=== PATIENT | female | born 1955 | race African-American/Black ===

== ENCOUNTER 2017-03-06 23:01 | Inpatient (IN) ==
[2017-03-06] MEDS ORDERED: ALBUTEROL 2.5 MG/3 ML NEB RESP TX SCH (23:45)
[2017-03-06] MEDS ORDERED: methylPREDNISolone SOD SUC 125 MG/2 ML VIAL IV STA (23:54)
[2017-03-06] MEDS ORDERED: FUROSEMIDE 100 MG/10 ML VIAL IV STA (23:54)
[2017-03-06] MEDS ORDERED: ONDANSETRON 4 MG/2 ML VIAL IV STA (23:54)
[2017-03-06] MEDS ORDERED: NITROGLYCERIN 2% OINT 1 INCH/GM PACK TOP STA (23:54)
[2017-03-06] MEDS ORDERED: ASPIRIN 325 MG TABLET PO STA (23:54)
[2017-03-07] MEDS ORDERED: NITROGLYCERIN 2% OINT 1 INCH/GM PACK TOP ONE ×3 (00:04→12:20)
[2017-03-07] MEDS ORDERED: ASPIRIN 325 MG TABLET ONE (00:04)
[2017-03-07] MEDS ORDERED: FUROSEMIDE 20 MG/2 ML VIAL ONE (00:04)
[2017-03-07] MEDS ORDERED: ONDANSETRON 4 MG/2 ML VIAL ONE (00:04)
[2017-03-07] MEDS ORDERED: methylPREDNISolone SOD SUC 125 MG/2 ML VIAL ONE (00:04)
[2017-03-07] MEDS ORDERED: FUROSEMIDE 40 MG/4 ML VIAL ONE ×2 (00:04→08:59)
--- NOTE | 2017-03-07 00:08 | EKG Report ---
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
[2017-03-07 00:35] LABS: Basophils % 0.3 % (0.0-0.8); Eosinophils % 0.1 % (0.00-10.9); Hematocrit 46.4 VOL% (35.7-47.0); Hemoglobin 14.4 GM/DL (12.0-16.0); Immature Granulocytes % 0.5 %; Immature Granulocytes Absolute 0.06 #; Lymphocytes # 1.9 10*3/uL (1.4-4.0); Lymphocytes % 16.3 % (21.3-54.2); Mean Corpuscular Hemoglobin 30 PG (27-34); Mean Corpuscular Volume 95.9 FL (87-102); Mean Platelet Volume 9.9 FL (9.6-12.0); Monocytes % 8.9 % (1.7-12.7); NRBC # 0.11 10*3/uL; Neutrophils # 8.5 10*3/uL (1.4-7.4); Neutrophils % 73.9 % (38.7-73.9); Platelet Count 281 T/CUMM (130-400); Red Blood Count 4.84 MC/CUMM (3.8-5.5); Red Cell Distribution Width 19.4 % (9.3-17.3); White Blood Count 11.5 T/CUMM (4-12)
[2017-03-07 00:36] LABS: Apearance,Urine CLEAR (Clear); Bacteria,Urine Occasional /HPF (Few); Bilirubin,Urine Negative (Negative); Blood, Urine Negative (Negative); Glucose,Urine (UA) Negative (Negative); Ketones,Urine Negative (Negative); Nitrite,Urine Negative (Negative); Protein,Urine Negative; RBC,Urine <1 /HPF (0-4); Squamous Epithelial Cell,Urine Occasional /HPF (0-10); Urine Color Straw (Yellow); Urine Specific Gravity 1.004 (1.001-1.035); Urine Urobilinogen < 2.0 EU/DL (0.2-1.0); WBC,Urine <1 /HPF (0-6)
[2017-03-07 00:41] LABS: Allen Test Positive; Pt O2 Delivery Device Venturi Mask
[2017-03-07 00:42] LABS: ABG Base Excess 7.7 MMOL/L (-2.5-2.5); ABG HCO3 32.6 MMOL/L (20-26); ABG Oxygen Saturation 82.6 % (95-100); ABG PCO2 46.2 MM HG (35-48); ABG PH 7.467 (7.35-7.45); ABG TCO2 34.1 MMOL/L (23-27)
--- NOTE | 2017-03-07 00:43 | Emergency Department Note ---
Keith Guillen Manpreet, am scribing for, and in the presence of, Juan Alberto Wilson MD 23:59. Katie Guillen Charles R, MD, personally performed the services described in this documentation, ascribed by Boubacar Parker in my presence, and it is both accurate and complete . Arrival - Arrival Chief Complaint: Shortness of Breath ED Nursing Triage Note: transferred from [facility] with dx of chf exac and sob x 1 day. ems states patient is on home o2 at 5liters at all times, patient states she is a current everyday smoker. Mode of Arrival: Stretcher Limitations: No Limitations Source: Patient - History of Present Illness HPI Narrative: Pt is a 61 y/o female, with PMHx of CHF, HTN, CAD, NIDDM, COPD, and bronchitis, who was transferred from [facility] with a Dx of CHF and SOB since 1 day. Pt states he is on home O2 all the time while she is at home. Pt admits to smoking 1-2 cigarettes every day. Pt currently denies CP and states she does not walk around. Pt is UTD and complaint with her Rx medications. No other pains /complaints reported to ED. Onset (ago): hour(s) Consistency: constant Severity: moderate Severity scale (1-10): 4 Allergies/Adverse Reactions: Allergies Allergy/AdvReac Type Severity Reaction Status Date / Time No Known Allergies Allergy Verified 01/16/15 17:54 Home Medications: Home Medications Medication Instructions Recorded Confirmed Type Escitalopram [Lexapro] 20 mg PO DAILY 11/08/15 07/07/16 History Albuterol Sulfate [Ventolin HFA] 2 puff INH Q4H PRN #1 inhaler 07/13/16 Rx Albuterol/Ipratropium Neb [Duoneb] 3 ml RESP TX RT Q6H #120 ml 07/13/16 Rx Aspirin Chew Tab 81 mg PO DAILY #0 tablet 07/13/16 Rx Furosemide Tab [Lasix Tab] 40 mg PO BID DIURETIC #60 tablet 07/13/16 Rx Hydrocodone/Acetaminophen 1 each PO Q6HR #30 tablet 07/13/16 Rx [Hydrocodon-Acetaminophn 10-325] Insulin Glargine [Lantus] 20 unit SUBCUT BEDTIME #100 ml 07/13/16 Rx LORazepam [Lorazepam] 0.5 mg PO BID #60 07/13/16 07/07/16 Rx Levofloxacin Tab [Levaquin Tab] 500 mg PO DAILY #10 tablet 07/13/16 Rx Metoprolol Tartrate 50 mg PO BID #60 tablet 07/13/16 Rx Pantoprazole Tab [Protonix Tab] 40 mg PO DAILY #30 tablet 07/13/16 Rx Theophylline ER Tab 300 mg PO BID W/MEALS #60 tablet 07/13/16 Rx Tiotropium Inhalation [Spiriva 18 mcg INH DAILY #1 box 07/13/16 Rx Handihaler] predniSONE TAB [PredniSONE] 10 mg PO BID #50 tablet 07/13/16 Rx Review of System - Review of System 12 point system: reviewed and no additional remarkable complaints except as stated - Review of System Constitutional: Absent: chills, fever Respiratory: Present: respiratory distress, wheezing. Absent: cough Cardiovascular: Present: dyspnea on exertion. Absent: chest pain Gastrointestinal: Absent: abdominal pain, nausea, vomiting Neurological: Absent: headache, weakness Medical,Surgical,& Family Hx - Medical History Cardio: History of: CHF (unclear diagnosis), CAD, Hypertension Endocrine: History of: Diabetes Mellitus (NIDDM), Dyslipidemia No history of: Thyroid Disorder Respiratory: History of: Bronchitis, COPD, Obstructive Sleep Apnea - Surgical History Cardiac Surgeries: Sugical HX of: Cardiac Catheterization (stent times 2) Abdominal Surgeries: Patient denies: Abdominal Surgery - Social History Smoking Status: Current every day smoker Frequency of Alcohol Use: None Type of Drug Use: None Exam Vital Signs: Vital Signs Temperature 97.4 F L 03/06/17 23:11 Pulse Rate 105 H 03/06/17 23:11 Respiratory Rate 18 03/06/17 23:11 Blood Pressure 129/88 03/06/17 23:11 O2 Sat by Pulse Oximetry 89 L 03/06/17 23:11 - General General appearance: alert, in distress - Head Head exam: Present: atraumatic, normocephalic, normal inspection - Eye Eye exam: Present: normal appearance, EOMI - ENT ENT exam: Present: normal exam, normal oropharynx, mucous membranes moist, TM's normal bilaterally - Neck Neck exam: Present: trachea midline, other (JVD). Absent: normal inspection, tenderness - Chest Chest inspection: Present: normal inspection, symmetric chest wall rise. Absent : tenderness - Respiratory Respiratory exam: Present: accessory muscle use, rales, wheezes. Absent: normal lung sounds bilaterally - Cardiovascular Cardiovascular exam: Present: normal rhythm, tachycardia, normal heart sounds. Absent: regular rate - Abdominal Exam Abdominal exam: Present: soft, normal bowel sounds. Absent: distention, tenderness, guarding - Extremities Exam Extremities exam: Present: other (+3 Bilateral Edema). Absent: normal inspection - Back Exam Back exam: Present: normal inspection, full ROM. Absent: tenderness - Neurological Exam Neurological exam: Present: alert, oriented X3, CN II-XII intact - Psychiatric Psychiatric exam: Present: normal affect, normal mood - Skin Skin exam: Present: warm, dry, intact, normal color. Absent: pallor Course - Consultations Consultation #1: Hospitalist will admit patient Time: 00:59 Results - Labs CBC & BMP: 03/06/17 00:19 Lab Results: I have reviewed the patients labs Labs: Laboratory Tests 03/06/17 00:01 Urine pH 6.0 Ur Specific [place] 1.004 Urine Urobilinogen < 2.0 H Urine RBC <1 Urine WBC <1 Laboratory Tests 03/06/17 03/06/17 00:19 00:30 WBC 11.5 RBC 4.84 Hgb 14.4 Hct 46.4 MCHC 31.0 L RDW 19.4 H Lymph % (Auto) 16.3 L Neut # (Auto) 8.5 H Piatt # (Auto) 1.0 H ABG pH 7.467 H ABG pO2 47.0 L ABG HCO3 32.6 H ABG Total CO2 34.1 H ABG O2 Saturation 82.6 L ABG Base Excess 7.7 H Critical Care Time Critical Care Time: Yes Total Critical Care Time: 60 Disposition Clinical Impression: Congestive heart failure, Hypertension, Acute and chronic respiratory failure ( [id number]), Obstructive sleep apnea syndrome, COPD (chronic obstructive pulmonary disease), Elevated troponin, Coronary artery disease, Hypomagnesemia, Theophylline toxicity, Acute dyspnea, Hypoxia Case discussed with: patient Disposition: Still a Patient Condition: Guarded Time of Disposition: 01:02
[2017-03-07 00:49] LABS: INR 1.1
[2017-03-07 00:59] LABS: Albumin 3.2 G/DL (3.4-5.0); Bilirubin,Total 0.9 MG/DL (0.2-1.0); Calcium 8.9 MG/DL (8.5-10.1); Total Protein 6.5 G/DL (6.4-8.3)
[2017-03-07 01:00] LABS: Magnesium 1.6 MG/DL (1.8-2.4)
[2017-03-07 01:01] LABS: Troponin I Only 0.516 NG/ML (0.00-0.045)
[2017-03-07] MEDS ORDERED: MAGNESIUM SULF RIDER 2 GM in PREMIX 1 EACH IV STA (01:01)
[2017-03-07] MEDS ORDERED: MAGNESIUM SULF RIDER 50 ML IV ONE (01:08)
[2017-03-07 01:36] LABS: Barbiturates Screen,Urine Negative (Negative); Benzodiazepines Screen,Urine Negative (Negative); Cannabinoid Screen,Urine Negative (Negative); Opiate Screen,Urine Positive (Negative); Phencyclidine Screen,Urine Negative (Negative)
--- NOTE | 2017-03-07 01:59 | Hospitalist History & Physical ---
Assessment and Plan (1) Acute and chronic respiratory failure ([id number]) Status: Acute Current Visit: Yes (2) Diabetes mellitus Status: Chronic Assessment and plan: Our plan for this patient will be admission to ICU. She will need to be diuresed. I would like to repeat coronary hack enzymes and have cardiology evaluate her. Continue with schedule breathing treatments. Will need to switch to Xopenex secondary to tachycardia. Symptomatically she is currently feeling better but her sats are too low for floor admission. Current Visit: No (3) Obstructive sleep apnea syndrome Status: Acute Current Visit: Yes (4) COPD (chronic obstructive pulmonary disease) Status: Chronic Current Visit: Yes (5) Congestive heart failure Status: Acute Current Visit: Yes (6) Elevated troponin Status: Acute Current Visit: Yes (7) Theophylline toxicity Status: Acute Current Visit: Yes (8) Acute dyspnea Status: Acute Current Visit: Yes (9) Hypoxia Status: Acute Current Visit: Yes History of Present Illness Chief complaint: Shortness of breath lower extremity swelling History of present illness: Ms. Cardoso is a 61 year old female with past medical history significant for morbid obesity coronary artery disease and COPD who was in her normal state of poor health till the last week. Patient said that she noted that her lower extremities have been swelling been getting more short of breath and she went to Dr. Edwards's office. He made some medication adjustments and then she went home. Since him when she got any better so she went to [facility]. Patient's O2 sats were decreased patient appeared to be in heart failure and had a mild bump in troponins she was transferred to our hospital for further evaluation. Patient was diuresed feeling much better but O2 sats are still little bit on the lower side. I was consulted to admit her to the ICU through the emergency room Home Medications Medication Instructions Recorded Confirmed Type Escitalopram [Lexapro] 20 mg PO DAILY 11/08/15 03/07/17 History Albuterol Sulfate [Ventolin HFA] 2 puff INH Q4H PRN #1 inhaler 07/13/16 Rx Metoprolol Tartrate 50 mg PO BID #60 tablet 07/13/16 03/07/17 Rx Pantoprazole Tab [Protonix Tab] 40 mg PO DAILY #30 tablet 07/13/16 03/07/17 Rx Theophylline ER Tab 300 mg PO BID W/MEALS #60 tablet 07/13/16 03/07/17 Rx Aspirin [Ecotrin] 325 mg PO DAILY 03/07/17 03/07/17 History Furosemide Tab [Lasix Tab] 40 mg PO DAILY 03/07/17 03/07/17 History Insulin Lispro [HumaLOG] See Protocol SUBCUT ACHS PRN 03/07/17 03/07/17 History LORazepam [Lorazepam] 0.5 mg PO BID PRN 03/07/17 03/07/17 History predniSONE TAB [PredniSONE] 10 mg PO DAILY 03/07/17 03/07/17 History Allergies Allergy/AdvReac Type Severity Reaction Status Date / Time No Known Allergies Allergy Verified 01/16/15 17:54 Medical,Surgical,& Family Hx - Medical History Cardio: History of: CHF (unclear diagnosis), CAD, Hypertension Endocrine: History of: Diabetes Mellitus (NIDDM), Dyslipidemia No history of: Thyroid Disorder Respiratory: History of: Bronchitis, COPD, Obstructive Sleep Apnea - Surgical History Cardiac Surgeries: Sugical HX of: Cardiac Catheterization (stent times 2) Abdominal Surgeries: Patient denies: Abdominal Surgery - Social History Smoking Status: Current every day smoker Frequency of Alcohol Use: None Type of Drug Use: None 12 point system: reviewed and no additional remarkable complaints except as stated Exam - Constitutional Vitals: Period Temp Pulse Resp BP Sys/Alvarez Pulse Ox Last 24 Hr 97.4 F-97.4 F 103-112 11-22 129-129/88-88 89-92 - General General appearance: alert, in distress - Head Head exam: Present: atraumatic, normocephalic, normal inspection - Eye Eye exam: Present: normal appearance, EOMI - ENT ENT exam: Present: normal exam, normal oropharynx, mucous membranes moist, TM's normal bilaterally - Neck Neck exam: Present: trachea midline, other (JVD). Absent: normal inspection, tenderness - Chest Chest inspection: Present: normal inspection, symmetric chest wall rise. - Respiratory Respiratory exam: Present: accessory muscle use, rales, wheezes. - Cardiovascular Cardiovascular exam: Present: normal rhythm, tachycardia, normal heart sounds. - Abdominal Exam Abdominal exam: Present: soft, normal bowel sounds. - Extremities Exam Extremities exam: Present: other (+3 Bilateral Edema). - Back Exam Back exam: Present: normal inspection, full ROM. - Neurological Exam Neurological exam: Present: alert, oriented X3, CN II-XII intact - Psychiatric Psychiatric exam: Present: normal affect, normal mood - Skin Skin exam: Present: warm, dry, intact, normal color. Absent: pallor Results - Labs CBC & BMP: 03/06/17 00:19 03/06/17 00:19
[2017-03-07] MEDS ORDERED: ALBUTEROL 2.5 MG/3 ML NEB RESP TX PRN (02:04)
[2017-03-07] MEDS ORDERED: ONDANSETRON 4 MG/2 ML VIAL IV PRN (02:04)
[2017-03-07] MEDS ORDERED: ACETAMINOPHEN 325 MG TABLET PO PRN (02:04)
[2017-03-07] MEDS ORDERED: MAGNESIUM SULF RIDER 4 GM in PREMIX 1 EACH IV PRN ×2 (02:13→11:03)
[2017-03-07] MEDS ORDERED: MAGNESIUM SULF RIDER 2 GM in PREMIX 1 EACH IV PRN ×2 (02:13→11:03)
[2017-03-07] MEDS ORDERED: methylPREDNISolone SOD SUC 40 MG/1 ML VIAL ONE (03:43)
--- NOTE | 2017-03-07 05:21 | EKG Report ---
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
[2017-03-07] MEDS ORDERED: LEVALBUTEROL 0.63 MG/3 ML NEB RESP TX PRN (05:40)
[2017-03-07 05:57] LABS: CKMB % 7.8 %; Troponin I Only 0.563 NG/ML (0.00-0.045)
[2017-03-07] MEDS: NITROGLYCERIN 2% OINT 1 INCH/GM PACK TOP SCH ×3 (06:00→19:41)
[2017-03-07] MEDS: methylPREDNISolone SOD SUC 40 MG/1 ML VIAL IV SCH ×3 (06:00→22:07)
--- NOTE | 2017-03-07 06:40 | XRay Report ---
Referring Physician: Juan Alberto Wilson Exam: XR chest 1V portable Date: March 06, 2017 at 11:58 PM Reason: Shortness of breath Comparison: Chest one view portable March 06, 2017 at 8:12 PM Findings: The cardiac silhouette is again enlarged, and there is prominent calcified plaque at the aortic arch. The interstitial markings are diffusely prominent bilaterally, and there are scattered opacities within the mid and lower lung zones bilaterally. This is concerning for pulmonary edema and atelectasis, but superimposed pneumonia is not excluded. No pneumothorax is identified, but there is mild bilateral pleural fluid. No acute osseous process is seen. Impression: There has been no significant change. PROCEDURE INTERPRETED AT [facility] DEPARTMENT OF RADIOLOGY Final Report Signed by: Dr. Iraj Rodriguez
[2017-03-07] MEDS ORDERED: ALBUTEROL/IPRATROPIUM 3 ML NEB RESP TX SCH (07:00)
[2017-03-07] MEDS ORDERED: FUROSEMIDE 40 MG/4 ML VIAL IV SCH (08:00)
[2017-03-07] MEDS: LEVALBUTEROL 1.25 MG/3 ML NEB RESP TX SCH ×2 (08:07→12:05)
[2017-03-07] MEDS ORDERED: ENOXAPARIN 40 MG/0.4 ML SYRINGE ONE (08:59)
[2017-03-07] MEDS ORDERED: PANTOPRAZOLE 40 MG TABLET PO ONE (08:59)
[2017-03-07] MEDS ORDERED: METOPROLOL TARTRATE 50 MG TABLET ONE (08:59)
[2017-03-07] MEDS ORDERED: ASPIRIN EC 325 MG TABLET PO ONE (08:59)
[2017-03-07] MEDS ORDERED: ENOXAPARIN 40 MG/0.4 ML SYRINGE SUBCUT SCH (09:00)
--- NOTE | 2017-03-07 09:10 | EKG Report ---
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
[2017-03-07] MEDS: ASPIRIN EC 325 MG TABLET PO SCH (09:14)
[2017-03-07] MEDS: METOPROLOL TARTRATE 50 MG TABLET PO SCH ×2 (09:14→21:06)
[2017-03-07] MEDS: PANTOPRAZOLE 40 MG TABLET PO SCH (09:14)
[2017-03-07] MEDS ORDERED: LORazepam 1 MG TABLET ONE (09:28)
--- NOTE | 2017-03-07 09:32 | Cardiology Consult Note ---
Assessment and Plan - Time spent with patient Time spent with patient: Greater than 30 minutes (1) Obesity (BMI 30-39.9) Status: Chronic Assessment and plan: SEE PLAN OF CARE LISTED BELOW Current Visit: Yes (2) Acute and chronic respiratory failure ([id number]) Status: Acute Assessment and plan: SEE PLAN OF CARE LISTED BELOW Current Visit: Yes (3) Congestive heart failure Status: Acute Assessment and plan: SEE PLAN OF CARE LISTED BELOW Current Visit: Yes Qualifiers: Congestive heart failure type: diastolic Congestive heart failure chronicity: acute on chronic Qualified Code(s): I50.33 - Acute on chronic diastolic (congestive) heart failure (4) Elevated troponin Status: Chronic Assessment and plan: SEE PLAN OF CARE LISTED BELOW Current Visit: Yes (5) Hypoxia Status: Acute Assessment and plan: SEE PLAN OF CARE LISTED BELOW Current Visit: Yes (6) Obstructive sleep apnea syndrome Status: Chronic Assessment and plan: SEE PLAN OF CARE LISTED BELOW Current Visit: Yes (7) COPD (chronic obstructive pulmonary disease) Status: Chronic Current Visit: Yes (8) Hypertension Status: Chronic Assessment and plan: SEE PLAN OF CARE LISTED BELOW Current Visit: Yes (9) Left ventricular hypertrophy Status: Chronic Assessment and plan: SEE PLAN OF CARE LISTED BELOW Current Visit: No (10) Diabetes mellitus Status: Chronic Assessment and plan: SEE PLAN OF CARE LISTED BELOW Current Visit: No History of Present Illness - Data of Consult Patient: known to practice within the last 3 years Consult date: 03/07/17 Requesting Physician: Roberto Villeda - Consult Narrative Reason for consult: elevated troponin, SOB History of present illness: LEAD TECHNICAL ARCHITECT: DR. HOANG Patient is being seen in the ER. Ms. Cardoso, 61BF, previously followed by Dr. Hoang. She has never followed up with cardiology outpatient. Risk factors include hypertension, obesity, sedentary lifestyle. History of recurrent pneumonia, COPD. According to Dr. Hoang's notes, she has no prior history of known coronary artery disease. Patient states that she has had a heart catheterization at [facility] approximately 2 years ago and may have received a stent. There is no record of a cardiac catheterization at this institution. Echocardiogram June 2016 revealed: EF 65%, no significant valvular abnormality, moderate to severe concentric left ventricular hypertrophy. Patient presented to the emergency department of [facility] last evening in transfer from [facility]. Patient has previously been followed by Dr. Edwards for swelling and shortness of breath. He made adjustments in her medications but she did not improve. For this reason, she sought medical advice in the [facility] ER. Patient's oxygen saturations were decreased, chest x-ray reveals pulmonary edema and/or pneumonia, mild elevation of troponins. Patient denies chest pain, heaviness or tightness. She is orthopneic and edematous. Patient reports the shortness of breath has worsened over the past 4-6 weeks. She has been coughing up thick yellow sputum for approximately 2 weeks. She denies fevers or chills. Of note is 4 cm jugular vein distention to the jaw. EKG reveals a sinus tachycardia, heart rate 130s. She is significantly tachypneic with wheezes and rhonchi throughout. Patient is also tearful, grieving from the loss of her approximately 6 months ago. She has diuresed 2100 mL overnight with 60 mg of Lasix. I have reviewed patient's case with Dr. Parra. He reviewed her EKG and agrees this is a sinus tachycardia, no STEMI. She has chronically elevated troponins ranging from 1.25-0.146. Current troponins are 0.563 and 0.516. ProBNP 1090. At some point, patient may benefit from cardiac catheterization however she is in respiratory extremis at this time. We will continue to follow her cardiac biomarkers and EKG. Echocardiogram has been ordered. An additional dose of Lasix 40 mg IV has been given. Recommend starting antibiotics for possible pneumonia. Strict I&O and daily weights. Venous ultrasounds ordered and d- dimer. If patient could lie flat, CT chest PE protocol would be recommended to rule out PE however at this time she remains orthopneic. SPO2 saturation 94%, blood pressure 132/68, heart rate 128, respirations 16. ASSESSMENT/PLAN: 1. SHORTNESS OF BREATH - multifactorial including CHF, possible CAP, morbid obesity, COPD, anxiety and tachycardia. Will give additional diuretics, control her heart rate, continue aspirin and Lovenox. Supplemental oxygen. Will start Levaquin IV for possible pneumonia. Chest x-ray will be repeated in the morning. Aggressive pulmonary toilet. 2. ACUTE ON CHRONIC CHF - secondary to diastolic dysfunction (EF 65%), NYHA Class IV. Continue diuretics and afterload reduction. Strict I&O and daily weights. 3. POSSIBLE CAP - antibiotic coverage. Consider pulmonary consult. 4. HYPERTENSION - we will change her metoprolol to Bystolic and she is having active wheezing. 5. UNKNOWN LIPID STATUS - lipid profile in the morning 6. EDEMA - venous ultrasound bilateral lower extremity, d-dimer. 7. ELEVATED TROPONIN - continue to cycle accordingly. 8. HYPOMAGNESEMIA - replace per protocol 9. COPD - continue current plan of care 10. MORBID OBESITY - dietary counseling prior to discharge 11. VALERIE - bring sleep device. 12. COPD - continue aggressive pulmonary toilet. 13. DNR - continue current plan of care CC: - Home Medications and Allergies Home Medications: Home Medications Medication Instructions Recorded Confirmed Type Escitalopram [Lexapro] 20 mg PO DAILY 11/08/15 03/07/17 History Albuterol Sulfate [Ventolin HFA] 2 puff INH Q4H PRN #1 inhaler 07/13/16 Rx Metoprolol Tartrate 50 mg PO BID #60 tablet 07/13/16 03/07/17 Rx Pantoprazole Tab [Protonix Tab] 40 mg PO DAILY #30 tablet 07/13/16 03/07/17 Rx Theophylline ER Tab 300 mg PO BID W/MEALS #60 tablet 07/13/16 03/07/17 Rx Aspirin [Ecotrin] 325 mg PO DAILY 03/07/17 03/07/17 History Furosemide Tab [Lasix Tab] 40 mg PO DAILY 03/07/17 03/07/17 History Insulin Lispro [HumaLOG] See Protocol SUBCUT ACHS PRN 03/07/17 03/07/17 History LORazepam [Lorazepam] 0.5 mg PO BID PRN 03/07/17 03/07/17 History predniSONE TAB [PredniSONE] 10 mg PO DAILY 03/07/17 03/07/17 History Allergies/Adverse Reactions: Allergies Allergy/AdvReac Type Severity Reaction Status Date / Time No Known Allergies Allergy Verified 01/16/15 17:54 Review of systems: REVIEW OF SYSTEMS: See HPI - Constitutional Constitutional: Present: Fatigue. Absent: syncope, anorexia, night sweats - EENT Eyes: Absent: blurry vision, loss of vision, diplopia Ears: Absent: decreased hearing, ear pain, ear discharge - Cardiovascular Cardiovascular: Denies chest pain. Chronically dyspneic on exertion however worse over the past 4-6 weeks. Edema bilateral lower extremities 2-3 weeks. Denies palpitations. Absent: chest pain with deep breath, claudication - Respiratory Respiratory: Present: CORNELIUS, cough. Absent: wheezing, hemoptysis, change in phlegm color - Gastrointestinal Gastrointestinal: Denies: constipation. Absent: abdominal pain, hematemesis, hematochezia, melena, change in bowel habits, nausea - Genitourinary Genitourinary: Absent: difficulty urinating, dysuria, urinary hesitancy, flank pain - Musculoskeletal Musculoskeletal: Present: back pain Absent: joint swelling, muscle cramps, muscle weakness - Neurological Neurological: Present: poor gait without frequent falls. Absent: dizziness, hemiparesis - Psychiatric Psychiatric: Depression, anxiety. Absent: difficulty concentrating - Endocrine Endocrine: Present: fatigue. Absent: cold intolerance, heat intolerance, polyuria, polyphagia, polydipsia - Hematologic/Lymphatic Hematologic/Lymphatic: Present: easy bruising. Absent: easy bleeding -Integumentary Integumentary: Absent: lesions, rashes, skin breakdown Medical,Surgical,& Family Hx - Medical History Cardio: History of: CHF (unclear diagnosis), Hypertension No history of: Cardiac Dysrhythmia, [place], Valvular Heart Disease Neurology: No history of: Cerebrovascular Accident Endocrine: History of: Diabetes Mellitus (NIDDM), Dyslipidemia No history of: Thyroid Disorder Respiratory: History of: Bronchitis, COPD, Obstructive Sleep Apnea - Surgical History Cardiac Surgeries: Sugical HX of: Cardiac Catheterization (stent times 2) Abdominal Surgeries: Patient denies: Abdominal Surgery - Social History Smoking Status: Current every day smoker Frequency of Alcohol Use: None Type of Drug Use: None Marital Status: Lives With:: Alone Functional capacity: independent ambulation Physical Examination Vital Signs Temp Pulse Resp BP Pulse Ox 97.4 F L 105 H 18 129/88 89 L 03/06/17 23:11 03/06/17 23:11 03/06/17 23:11 03/06/17 23:11 03/06/17 23:11 General: [Appears well with no apparent distress.] [Pleasant and cooperative. ] [Appears comfortable.] HEENT: [PERRL, normocephalic, atraumatic. Mucous membranes moist. No jaundice noted. Conjunctiva moist and clear, sclerae anicteric] Neck: 4 cm JVD to jaw. No thyromegaly or lymphadenopathy noted. No carotid bruit appreciated Cardiac: [Tachycardia rate without obvious murmur, rub or gallop. Lungs: [End expiratory wheezes noted throughout, rhonchi noted throughout. Oxygen in use via facemask Abdomen: Soft, bowel sounds normoactive. Nontender and nondistended. No abdominal bruit or thrill noted. No masses noted. Musculoskeletal: No fluid collection. Decreased range of motion is noted. Extremities: No clubbing, cyanosis noted. [1+ bilateral lower extremity edema. ] Upper extremity pulses 2+. Lower extremity pulses 2+. Capillary refill less than 3 seconds. Skin: No unusual lesions or rashes. No skin breakdown appreciated. Neuro: Awake, alert and oriented 3. Moves all extremities well without hemiparesis or paralysis. No essential tremor is appreciated. Result/EKG - Labs CBC & BMP: 03/06/17 00:19 03/06/17 00:19 Lab Results: I have reviewed the past 24 hour labs Labs: Laboratory Results - last 24 hr 03/06/17 03/06/17 03/06/17 00:01 00:01 00:19 WBC 11.5 RBC 4.84 Hgb 14.4 Hct 46.4 MCV 95.9 MCH 30 MCHC 31.0 L RDW 19.4 H Plt Count 281 MPV 9.9 Neut % (Auto) 73.9 Lymph % (Auto) 16.3 L Dundy % (Auto) 8.9 Eos % (Auto) 0.1 Baso % (Auto) 0.3 Neut # (Auto) 8.5 H Lymph # (Auto) 1.9 Dundy # (Auto) 1.0 H Eos # (Auto) 0.0 Baso # (Auto) 0.0 Immature Gran % 0.5 Nucleated RBC % 1.0 Immature Gran # 0.06 Nucleated RBCs # 0.11 INR PT Patient/Control Mix ABG pH ABG pCO2 ABG pO2 ABG HCO3 ABG Total CO2 ABG O2 Saturation ABG Base Excess FiO2 Sodium Potassium Chloride Carbon Dioxide Anion Gap BUN Creatinine GFR Calculation BUN/Creatinine Ratio Glucose Calculated Osmolality Calcium Magnesium Total Bilirubin AST ALT Alkaline Phosphatase Total Creatine Kinase CK-MB (CK-2) CK and CKMB Interp Troponin I B-Natriuretic Peptide Total Protein Albumin Globulin Albumin/Globulin Ratio Urine Color Straw Urine Appearance Clear Urine pH 6.0 Ur Specific [place] 1.004 Urine Protein Negative Urine Glucose (UA) Negative Urine Ketones Negative Urine Blood Negative Urine Nitrate Negative Urine Bilirubin Negative Urine Urobilinogen < 2.0 H Urine Leukocytes Negative Urine RBC <1 Urine WBC <1 Ur Squamous Epith Cells Occasional Urine Bacteria Occasional Ur Culture Indicated? Not indicated Urine Opiates Screen Positive H Ur Barbiturates Screen Negative Ur Phencyclidine Scrn Negative U Amphetamine/Methamph Negative U Benzodiazepines Scrn Negative U Cocaine Metab Screen Negative Theophylline U Cannabinoids Screen Negative 03/06/17 03/06/17 03/06/17 00:19 00:19 00:19 WBC RBC Hgb Hct MCV MCH MCHC RDW Plt Count MPV Neut % (Auto) Lymph % (Auto) Dundy % (Auto) Eos % (Auto) Baso % (Auto) Neut # (Auto) Lymph # (Auto) Dundy # (Auto) Eos # (Auto) Baso # (Auto) Immature Gran % Nucleated RBC % Immature Gran # Nucleated RBCs # INR 1.1 PT Patient/Control Mix 12.0 ABG pH ABG pCO2 ABG pO2 ABG HCO3 ABG Total CO2 ABG O2 Saturation ABG Base Excess FiO2 Sodium 143 Potassium 4.0 Chloride 102 Carbon Dioxide 32 Anion Gap 13.0 BUN 33 H Creatinine 1.40 H GFR Calculation 58 BUN/Creatinine Ratio 23.00 H Glucose 84 Calculated Osmolality 290.0 Calcium 8.9 Magnesium 1.6 L Total Bilirubin 0.90 AST 34 ALT 35 Alkaline Phosphatase 123 H Total Creatine Kinase CK-MB (CK-2) CK and CKMB Interp Troponin I 0.516 H B-Natriuretic Peptide 1090 H Total Protein 6.5 Albumin 3.2 L Globulin 3.3 Albumin/Globulin Ratio 0.9 L Urine Color Urine Appearance Urine pH Ur Specific [place] Urine Protein Urine Glucose (UA) Urine Ketones Urine Blood Urine Nitrate Urine Bilirubin Urine Urobilinogen Urine Leukocytes Urine RBC Urine WBC Ur Squamous Epith Cells Urine Bacteria Ur Culture Indicated? Urine Opiates Screen Ur Barbiturates Screen Ur Phencyclidine Scrn U Amphetamine/Methamph U Benzodiazepines Scrn U Cocaine Metab Screen Theophylline U Cannabinoids Screen 03/06/17 03/06/17 03/07/17 00:30 Unknown 05:26 WBC RBC Hgb Hct MCV MCH MCHC RDW Plt Count MPV Neut % (Auto) Lymph % (Auto) Dundy % (Auto) Eos % (Auto) Baso % (Auto) Neut # (Auto) Lymph # (Auto) Dundy # (Auto) Eos # (Auto) Baso # (Auto) Immature Gran % Nucleated RBC % Immature Gran # Nucleated RBCs # INR PT Patient/Control Mix ABG pH 7.467 H ABG pCO2 46.2 ABG pO2 47.0 L ABG HCO3 32.6 H ABG Total CO2 34.1 H ABG O2 Saturation 82.6 L ABG Base Excess 7.7 H FiO2 40.00 Sodium Potassium Chloride Carbon Dioxide Anion Gap BUN Creatinine GFR Calculation BUN/Creatinine Ratio Glucose Calculated Osmolality Calcium Magnesium Total Bilirubin AST ALT Alkaline Phosphatase Total Creatine Kinase 65 CK-MB (CK-2) 5.1 H CK and CKMB Interp 7.8 Troponin I 0.563 H B-Natriuretic Peptide Total Protein Albumin Globulin Albumin/Globulin Ratio Urine Color Urine Appearance Urine pH Ur Specific [place] Urine Protein Urine Glucose (UA) Urine Ketones Urine Blood Urine Nitrate Urine Bilirubin Urine Urobilinogen Urine Leukocytes Urine RBC Urine WBC Ur Squamous Epith Cells Urine Bacteria Ur Culture Indicated? Urine Opiates Screen Ur Barbiturates Screen Ur Phencyclidine Scrn U Amphetamine/Methamph U Benzodiazepines Scrn U Cocaine Metab Screen Theophylline 23.1 H* U Cannabinoids Screen - Diagnostic Findings Procedure: Chest x-ray: report reviewed by me, Ultrasound: pending (Venous ultrasound BLE, echo) - EKG EKG results: interpreted by me EKG shows: tachycardia
[2017-03-07] MEDS: LORazepam 0.5 MG TABLET PO PRN (09:35)
[2017-03-07 10:44] LABS: Hematocrit 45.2 VOL% (35.7-47.0); Hemoglobin 13.9 GM/DL (12.0-16.0); Immature Granulocytes % 0.7 %; Immature Granulocytes Absolute 0.07 #; Lymphocytes # 0.5 10*3/uL (1.4-4.0); Lymphocytes % 4.6 % (21.3-54.2); Mean Corpuscular HGB Conc 30.8 GM/DL (32-36); Mean Corpuscular Hemoglobin 30 PG (27-34); Mean Corpuscular Volume 96.4 FL (87-102); Mean Platelet Volume 10.8 FL (9.6-12.0); Monocytes # 0.1 10*3/uL (0.11-0.8); Monocytes % 0.7 % (1.7-12.7); NRBC # 0.08 10*3/uL; Neutrophils # 9.7 10*3/uL (1.4-7.4); Platelet Count 312 T/CUMM (130-400); Red Blood Count 4.69 MC/CUMM (3.8-5.5); Red Cell Distribution Width 19.3 % (9.3-17.3); White Blood Count 10.3 T/CUMM (4-12)
--- NOTE | 2017-03-07 10:45 | Hospitalist Progress Note ---
<Paloma Rueda - Last Filed: 03/07/17 11:05> Assessment and Plan (1) Elevated troponin Status: Chronic Assessment and plan: Pt. has history of elevated troponins. Cardiology has been consulted to evaluate. Current Visit: Yes (2) Acute dyspnea Status: Acute Assessment and plan: Admitting to ICU. Supplemental O2 being provided. IV lasix for diuresis. Current Visit: Yes (3) Congestive heart failure Status: Acute Assessment and plan: Pt. is being diuresed. Acosta in place. Cardiology has been consulted. Current Visit: Yes Qualifiers: Congestive heart failure type: diastolic Congestive heart failure chronicity: acute on chronic Qualified Code(s): I50.33 - Acute on chronic diastolic (congestive) heart failure (4) Hypertension Status: Chronic Assessment and plan: Pt. blood pressure currently stable. Home meds have been restarted. Current Visit: Yes (5) Obesity (BMI 30-39.9) Status: Chronic Current Visit: Yes (6) Type 2 diabetes mellitus Status: Chronic Assessment and plan: Pt. to be placed on accuchecks achs. A1c ordered for am. Current Visit: No Hospitalist: Subjective Interval history: Pt. seen and examined. Pt. has on a face mask and is on 12L but sats are 86-91% . Pt. has moderate bilateral lower extremity edema. Pt. just received Lasix dose. Pt. has acosta in with adequate urine output noted. Pt. is crying and very anxious and emotional. Pt. states that she is "very tired". Pt. expresses that she has been under a lot of emotional stress since passing of her . Pt. states that she does not wish to be resuscitated. CODE STATUS will be changed. Troponins are noted to be 0.516 and 0.563 with another result pending. Cardiology has seen patient and we will follow their recommendations. Pt. has stable BP but is tachycardic. Theophylline level noted to be slightly elevated ( 23.1) - will recheck in am. Continue to monitor patients and adjust accordingly. Exam - Constitutional Vitals: Period Temp Pulse Resp BP Sys/Alvarez Pulse Ox Last 24 Hr 97.4 F-97.4 F 103-126 11-24 113-129/74-88 89-93 General appearance: mild distress, over weight - Head Head exam: Present: normal inspection, normocephalic - Eye Eye exam: Present: EOMI. Absent: periorbital swelling Pupils: Present: CLAY. Absent: dilated - Neck Neck exam: Present: normal inspection. Absent: thyromegaly - Respiratory Respiratory exam: Present: other (coarse). Absent: clear to auscultation bilaterally - Cardiovascular Cardiovascular exam: Present: tachycardia - GI/Abdominal GI/Abdominal exam: Present: normal bowel sounds, soft. Absent: tenderness - Extremities Exam Extremities exam: Present: normal capillary refill, full ROM, edema - Neurological Exam Neurological exam: Present: alert, oriented X3 - Psychiatric Psychiatric exam: Present: anxious, depressed, other (pt crying) - Skin Skin exam: Present: normal color, warm, dry Results - Labs CBC & BMP: 03/07/17 10:32 03/06/17 00:19 Lab Results: I have reviewed the past 24 hour labs <Indira Astorga - Last Filed: 03/07/17 15:24> Assessment and Plan (1) Acute and chronic respiratory failure ([id number]) Status: Acute Assessment and plan: duonebs, steroids, lasix IV Current Visit: Yes (2) Hypomagnesemia Status: Acute Assessment and plan: mag replacement 2 grams IV Current Visit: Yes (3) Theophylline toxicity Status: Acute Assessment and plan: hold manish Current Visit: Yes (4) Hypertension Status: Chronic Assessment and plan: cont metoprolol Current Visit: Yes (5) Obstructive sleep apnea syndrome Status: Chronic Assessment and plan: cpap while sleeping Current Visit: Yes (6) Acute exacerbation of chronic obstructive pulmonary disease (COPD) Status: Acute Assessment and plan: duonebs and steroids Current Visit: No (7) Diabetes mellitus Status: Chronic Assessment and plan: hgb a1c, isc Current Visit: No Hospitalist: Subjective Interval history: patient seen and examined. Hospital course reviewed and edited. Patient wanted to be an DNR. When I saw her in the ER, her oxygen saturation has dropped. I have started her on duonebs. Exam - Constitutional Vitals: Period Temp Pulse Resp BP Sys/Alvarez Pulse Ox Last 24 Hr 98.0 F 102-132 17-26 101-124/61-82 82-96 - ENT ENT exam: Present: normal exam, normal external ear exam Results - Labs CBC & BMP: 03/07/17 10:32 03/07/17 10:32 - Diagnostic Findings Procedure: Chest x-ray: report reviewed by me, CT: report reviewed by me (no PE)
[2017-03-07] MEDS: ESCITALOPRAM 10 MG TABLET PO SCH (10:50)
--- NOTE | 2017-03-07 10:59 | Ultrasound Report ---
US venous doppler LE BI Indication: Swelling. Comparison: None. Technique: Grayscale, spectral, and color Doppler interrogation of the bilateral lower extremity veins was performed. Augmentation and compression was performed. Findings: Grayscale, color Doppler, and pulsed Doppler evaluation of the veins of the left lower extremity demonstrates no evidence of deep venous thrombosis. Thrombosis of the right saphenous vein demonstrated. IMPRESSION: Thrombosis of the right saphenous vein demonstrated. PROCEDURE INTERPRETED AT [facility] DEPARTMENT OF RADIOLOGY Final Report Signed by: Dr Diogo Villafuerte
[2017-03-07 11:03] LABS: Hypochromasia 1+; Lymphocytes 5 % (20-55); Ovalocytes Slight; Platelet Estimate Adequate; Segmented Neutrophils 94 % (50-85); Total Cells Counted 100
[2017-03-07 11:08] LABS: Calcium 8.8 MG/DL (8.5-10.1); Magnesium 1.6 MG/DL (1.8-2.4)
[2017-03-07 11:09] LABS: Osmolality,Calculated 298.8 MOS/KG (273-304)
[2017-03-07 11:14] LABS: CKMB % 11.4 %
[2017-03-07 11:15] LABS: Troponin I Only 0.862 NG/ML (0.00-0.045)
[2017-03-07 12:01] LABS: Free T4 (Free Thyroxine) 1.36 NG/DL (0.76-1.46); Thyroid Stimulating Hormone 0.153 uIU/ml (0.358-3.74)
[2017-03-07 12:16] LABS: ABG Base Excess 4.3 MMOL/L (-2.5-2.5); ABG HCO3 27.8 MMOL/L (20-26); ABG Oxygen Saturation 80.2 % (95-100); ABG PCO2 55.6 MM HG (35-48); ABG PO2 49.6 MM HG (80-95); ABG TCO2 27.5 MMOL/L (23-27)
[2017-03-07] MEDS ORDERED: LEVOFLOXACIN INJ 100 ML IV ONE (12:20)
[2017-03-07 12:24] LABS: Risk Ratio 2.32; VLDL CHOLESTEROL 19.6 MG/DL
[2017-03-07] MEDS: LEVOFLOXACIN INJ 500 MG in PREMIX 1 EACH IV SCH (12:25)
--- NOTE | 2017-03-07 13:48 | ECHO Report ---
Mia Cardoso 03/07/2017 Exam Date: 10:18 Referring Physician: Mily Mendes Technologist: RACHEL Age: 61 Ht (in): Wt (lb): FExam Location: [facility] Gender: Echo [id number]: hypoxiaIndications: BP: / HR: tachycardiaRhythm: Technical Quality: IMPRESSIONS Normal left ventricular size, with moderate concentric hypertrophy, with normal systolic function, with abnormal septal motion. Estimated left ventricular ejection fraction 60%. Dilated right-sided heart chambers, with decreased right ventricular systolic function, with moderate pulmonary hypertension, with moderate tricuspid insufficiency. Left atrial enlargement. Mild mitral regurgitation. Aortic valve sclerosis, without stenosis or insufficiency. MEASUREMENTS (Male / Female) Normal Values 2D ECHO LV Diastolic Diameter PLAX 3.4 cm 4.2 - 5.9 / 3.9 - 5.3 cm LV Systolic Diameter PLAX 3.0 cm LV Fractional Shortening PLAX 11.1 % IVS Diastolic Thickness 1.9 cm 0.6 - 1.0 / 0.6 - 0.9 cm LVPW Diastolic Thickness 1.6 cm 0.6 - 1.0 / 0.6 - 0.9 cm RV Internal Dim ED PLAX 3.0 cm Aortic Root Diameter 2.4 cm LA Systolic Diameter LX 4.0 cm 3.0 - 4.0 / 2.7 - 3.8 cm DOPPLER TR Peak Velocity 381.0 cm/s TR Peak Gradient 58.1 mmHg FINDINGS Left Ventricle Normal left ventricular size, with moderate concentric hypertrophy, with normal systolic function, with abnormal septal motion. Estimated left ventricular ejection fraction 60%. Insufficient data to estimate diastolic function Right Ventricle The right ventricle is mildly dilated, with decreased systolic function Right Atrium Moderately dilated right atrium Left Atrium Mildly increased left atrial diameter. Mitral Valve Mildly thickened mitral valve with mild mitral regurgitation. Aortic Valve Aortic valve sclerosis without stenosis or regurgitation. Tricuspid Valve Morphologically normal tricuspid valve. Moderate tricuspid valve regurgitation. Tricuspid regurgitation velocities suggest a PAP of 58 mmHg plus PA pressure. Pulmonic Valve Morphologically normal pulmonic valve. Pericardium No pericardial effusion. Aorta Normal size aortic root and proximal ascending aorta. Bj Parra (Electronically Signed) 07 Mar 2017 13:47Final Date:
[2017-03-07] MEDS ORDERED: ENOXAPARIN 60 MG/0.6 ML SYRINGE SUBCUT ONE (14:30)
[2017-03-07] MEDS ORDERED: ENOXAPARIN 100 MG/ML SYRINGE SUBCUT SCH (14:30)
--- NOTE | 2017-03-07 15:01 | Nuclear Medicine Report ---
Exam: Lung scan ventilation/perfusion Date: March 07, 2017 Comparison: Chest one view portable March 06, 2017 Reason: Shortness of breath, DVT Technique: 40 mCi of technetium 99m DTPA aerosolized was administered as well as 5 mCi of technetium 99m MAA IV. Ventilation and perfusion images of both lungs were acquired. Findings: There is central radiotracer accumulation on the ventilation images, which can be seen in COPD. There are a few matched ventilation/perfusion defects, but no large mismatched perfusion defect is identified. Impression: Findings are most consistent with low probability for pulmonary embolism. PROCEDURE INTERPRETED AT [facility] DEPARTMENT OF RADIOLOGY Final Report Signed by: Dr. Iraj Rodriguez
[2017-03-07] MEDS ORDERED: MAGNESIUM SULF RIDER 2 GM in PREMIX 1 EACH IV ONE (15:16)
[2017-03-07] MEDS ORDERED: GLUCAGON 1 MG VIAL IM PRN (15:22)
[2017-03-07] MEDS ORDERED: DEXTROSE 50% 25 GM/50 ML VIAL IV PRN (15:22)
[2017-03-07] MEDS: ALBUTEROL/IPRATROPIUM 3 ML NEB RESP TX SCH ×3 (15:30→23:48)
[2017-03-07] MEDS ORDERED: FUROSEMIDE 100 MG/10 ML VIAL IV SCH (16:00)
[2017-03-07] MEDS: FUROSEMIDE 40 MG/4 ML VIAL IV SCH (16:06)
[2017-03-07] MEDS: INSULIN LISPRO 100 UNIT/ML SUBCUT SCH ×2 (16:43→21:05)
[2017-03-07 18:02] LABS: CKMB % 10.7 %
[2017-03-07 18:09] LABS: Troponin I Only 1.71 NG/ML (0.00-0.045)
--- NOTE | 2017-03-07 19:01 | Sleep Medicine Consult ---
Assessment and Plan (1) Obstructive sleep apnea syndrome Status: Chronic Assessment and plan: She has recently been demonstrated to be compliant with her ASV therapy on follow-up in the sleep clinic in [facility]. She needs to get her son to bring her device here so that she can utilize it while hospitalized. She clearly benefited from the combination of ASV therapy with in-line O2 at 4 L/min. Her O2 therapy can be adjusted as needed to maintain O2 sats in appropriate range. Follow-up of downloaded compliance data can be done by the sleep lab when her device has been brought. Current Visit: Yes (2) Acute exacerbation of chronic obstructive pulmonary disease (COPD) Status: Acute Assessment and plan: This patient has some severe chronic hypoxia likely from COPD. Evaluation is underway. I will defer to the primary care service on these issues. 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 Certainly could be contributing to cardiac issues such as arrhythmias. Current Visit: No (3) Hypertension Status: Chronic Assessment and plan: The prevalence rate for obstructive sleep apnea patients with hypertension is 35 %. That rate can be as high as 80% in patients who require 4 or more medications for blood pressure control. Current Visit: Yes (4) Type 2 diabetes mellitus Status: Chronic Assessment and plan: The prevalence rate for obstructive sleep apnea in patients with type 2 diabetes can be as high as 86%. Those patients with moderate to severe obstructive sleep apnea are at a greater risk for diabetic nephropathy and neuropathy. Compliance with CPAP therapy for these patients can lead to improvement in glycemic control and improvement in insulin sensitivity. Current Visit: No History of Present Illness Chief complaint: Obstructive sleep apnea History of present illness: Ms. Cardoso is a 61 year old female well known to me. She previously had been diagnosed with severe obstructive sleep apnea, having a diagnostic AHI of 84.8. She had undergone CPAP and BiPAP titration in March 2016 but had severe treatment emergent central sleep apnea that was refractory to both. She also had severe sleep related hypoxia and was eventually treated with a combination of adaptive servo ventilation therapy with supplemental oxygen. She failed to achieve compliance on that and required re-titration in November of this year. She had excellent results with ASV, having an overall AHI of only 1.1. She did have significant hypoxia and required 4 L/min of O2 with her ASV just to maintain O2 sats above 85%. I saw her in follow-up at the [facility] sleep clinic on 02/07/2017 and she had excellent compliance with her ASV therapy at 86% usage for over 4 hours and an average AHI of 0.5. I congratulated her at that time on her good compliance and schedule her for follow-up in 1 year. She is now been admitted with increasing shortness of breath and hypoxia. She states that she has been using her device but did not bring it with her. I have asked for her to contact her son to bring it here so that she can utilize it at night. CPAP and BiPAP will do poorly with her. Home Medications Medication Instructions Recorded Confirmed Type Escitalopram [Lexapro] 20 mg PO DAILY 11/08/15 03/07/17 History Albuterol Sulfate [Ventolin HFA] 2 puff INH Q4H PRN #1 inhaler 07/13/16 Rx Metoprolol Tartrate 50 mg PO BID #60 tablet 07/13/16 03/07/17 Rx Pantoprazole Tab [Protonix Tab] 40 mg PO DAILY #30 tablet 07/13/16 03/07/17 Rx Theophylline ER Tab 300 mg PO BID W/MEALS #60 tablet 07/13/16 03/07/17 Rx Aspirin [Ecotrin] 325 mg PO DAILY 03/07/17 03/07/17 History Furosemide Tab [Lasix Tab] 40 mg PO DAILY 03/07/17 03/07/17 History Insulin Lispro [HumaLOG] See Protocol SUBCUT ACHS PRN 03/07/17 03/07/17 History LORazepam [Lorazepam] 0.5 mg PO BID PRN 03/07/17 03/07/17 History predniSONE TAB [PredniSONE] 10 mg PO DAILY 03/07/17 03/07/17 History Allergies Allergy/AdvReac Type Severity Reaction Status Date / Time No Known Allergies Allergy Verified 01/16/15 17:54 Review of systems: Notable for recent issues with lower extremity swelling and nocturia. She denies awakening from sleep short of breath while using her ASV. Exam (Pulmonay) H&P - Constitutional Vitals: Period Temp Pulse Resp BP Sys/Alvarez Pulse Ox Last 24 Hr 97.6 F-98.0 F 92-132 17-103 101-150/61-90 82-98 Exam: She is alert and responsive. Pupils equal round reactive to light and accommodation. Extraocular movements intact. Oropharynx with a class IV Mallampati exam. Neck supple without adenopathy chest with symmetrical breath sounds without focal wheeze or rhonchi. Cardiac exam reveals a regular rhythm without murmur or gallop. Abdomen obese nontender without palpable hepatosplenomegaly or mass. Extremities with 2+ pitting edema. Neurologically , she is grossly intact. She moves all extremities with good strength and answers questions appropriately. Medical,Surgical,& Family Hx - Medical History Cardio: History of: CHF (unclear diagnosis), CAD, Hypertension No history of: Cardiac Dysrhythmia, [place], Valvular Heart Disease Neurology: No history of: Cerebrovascular Accident Endocrine: History of: Diabetes Mellitus (NIDDM), Dyslipidemia No history of: Thyroid Disorder Respiratory: History of: Bronchitis, COPD, Obstructive Sleep Apnea - Surgical History Cardiac Surgeries: Sugical HX of: Cardiac Catheterization (stent times 2) Abdominal Surgeries: Patient denies: Abdominal Surgery - Social History Smoking Status: Current every day smoker Frequency of Alcohol Use: None Type of Drug Use: None Results - Labs CBC & BMP: 03/07/17 10:32 03/07/17 10:32 Labs: She is Chadd toxic and has a suppressed TSH.
[2017-03-07] MEDS ORDERED: FUROSEMIDE 40 MG/4 ML VIAL IV ONE (22:26)
[2017-03-08] MEDS: NITROGLYCERIN 2% OINT 1 INCH/GM PACK TOP SCH ×2 (01:06→06:31)
[2017-03-08] MEDS ORDERED: ENOXAPARIN 100 MG/ML SYRINGE SUBCUT SCH ×2 (03:00→09:00)
[2017-03-08] MEDS: ALBUTEROL/IPRATROPIUM 3 ML NEB RESP TX SCH ×5 (03:40→19:13)
[2017-03-08] MEDS: methylPREDNISolone SOD SUC 40 MG/1 ML VIAL IV SCH ×3 (06:31→21:53)
[2017-03-08 06:34] LABS: Calcium 8.9 MG/DL (8.5-10.1); Magnesium 2.1 MG/DL (1.8-2.4); Osmolality,Calculated 295.3 MOS/KG (273-304); Potassium 4.4 MMOL/L (3.5-5.1)
[2017-03-08 07:11] LABS: ABG Base Excess 6.6 MMOL/L (-2.5-2.5); ABG Oxygen Saturation 79.6 % (95-100); ABG PCO2 45.1 MM HG (35-48); ABG PH 7.452 (7.35-7.45); ABG PO2 45.9 MM HG (80-95); ABG TCO2 27.6 MMOL/L (23-27)
[2017-03-08] MEDS: INSULIN LISPRO 100 UNIT/ML SUBCUT SCH ×4 (07:30→21:53)
[2017-03-08 07:45] LABS: Risk Ratio 2.33; VLDL CHOLESTEROL 16.8 MG/DL
[2017-03-08] MEDS: ESCITALOPRAM 10 MG TABLET PO SCH (09:13)
[2017-03-08] MEDS: PANTOPRAZOLE 40 MG TABLET PO SCH (09:13)
[2017-03-08] MEDS: FUROSEMIDE 40 MG/4 ML VIAL IV SCH (09:14)
[2017-03-08] MEDS: ASPIRIN EC 325 MG TABLET PO SCH (09:14)
[2017-03-08] MEDS: METOPROLOL TARTRATE 50 MG TABLET PO SCH ×2 (09:14→21:53)
[2017-03-08 09:17] LABS: Basophils % 0.1 % (0.0-0.8); Hemoglobin 13.9 GM/DL (12.0-16.0); Immature Granulocytes % 1.1 %; Immature Granulocytes Absolute 0.15 #; Lymphocytes # 0.9 10*3/uL (1.4-4.0); Lymphocytes % 6.1 % (21.3-54.2); Mean Corpuscular HGB Conc 30.9 GM/DL (32-36); Mean Corpuscular Hemoglobin 30 PG (27-34); Mean Corpuscular Volume 96.6 FL (87-102); Mean Platelet Volume 10.3 FL (9.6-12.0); Monocytes # 0.5 10*3/uL (0.11-0.8); Monocytes % 3.7 % (1.7-12.7); NRBC # 0.24 10*3/uL; Neutrophils # 12.6 10*3/uL (1.4-7.4); Platelet Count 305 T/CUMM (130-400); Red Blood Count 4.66 MC/CUMM (3.8-5.5); Red Cell Distribution Width 19.4 % (9.3-17.3); White Blood Count 14.2 T/CUMM (4-12)
[2017-03-08] MEDS ORDERED: ISOSORBIDE MONONITRATE 30 MG TABLET PO SCH (10:30)
[2017-03-08] MEDS: ISOSORBIDE MONONITRATE 30 MG TABLET PO SCH (11:45)
[2017-03-08] MEDS: hydrALAZINE 25 MG TABLET PO SCH ×3 (11:45→21:53)
[2017-03-08] MEDS: LEVOFLOXACIN INJ 500 MG in PREMIX 1 EACH IV SCH (11:46)
--- NOTE | 2017-03-08 12:21 | Cardiology Progress Note ---
Addendum entered and electronically signed by Bj Parra MD 03/08/17 10:28: Interviewed and examined the patient personally. Discussed findings with the nurse practitioner. I agree with the assessment and plan, with additions as below. 61yF with severe COPD, VALERIE, PHTN, admitted with SOB, pulm congestion, STEPHIE. DVT. Low prob PE on VQ scan. cardiac enzyme trend showed preserved LVEF. There is significant R sided disease. -PHTN. Likely due to underlying pulm disease. Can be a candidate for vasodilators. -CPAP for VALERIE -Pulm consult. Theophylline lvl was high. -Renal consult. She diuresed fairly with IV lasix. Creatinie increasing. -Once pulm issues and renal function improves, would pursue cardiac eval LHC+ RHC. Assess reversibility of PHTN, r/o CAD as cause for elev cardiac enzymes -DVT. Swithc LMWH to Eliquis. Although she does not seem to have a PE, I would suggest lifelong anticoagulation as she already has significant RV dysfunction Original Note: Assessment and Plan - Time spent with patient Time spent with patient: Greater than 30 minutes (1) Obesity (BMI 30-39.9) Status: Chronic Assessment and plan: SEE PLAN OF CARE LISTED BELOW Current Visit: Yes (2) Acute and chronic respiratory failure ([id number]) Status: Acute Assessment and plan: SEE PLAN OF CARE LISTED BELOW Current Visit: Yes (3) Congestive heart failure Status: Acute Assessment and plan: SEE PLAN OF CARE LISTED BELOW Current Visit: Yes Qualifiers: Congestive heart failure type: diastolic Congestive heart failure chronicity: acute on chronic Qualified Code(s): I50.33 - Acute on chronic diastolic (congestive) heart failure (4) Elevated troponin Status: Chronic Assessment and plan: SEE PLAN OF CARE LISTED BELOW Current Visit: Yes (5) Hypoxia Status: Acute Assessment and plan: SEE PLAN OF CARE LISTED BELOW Current Visit: Yes (6) Obstructive sleep apnea syndrome Status: Chronic Assessment and plan: SEE PLAN OF CARE LISTED BELOW Current Visit: Yes (7) COPD (chronic obstructive pulmonary disease) Status: Chronic Current Visit: Yes (8) Hypertension Status: Chronic Assessment and plan: SEE PLAN OF CARE LISTED BELOW Current Visit: Yes (9) Left ventricular hypertrophy Status: Chronic Assessment and plan: SEE PLAN OF CARE LISTED BELOW Current Visit: No (10) Diabetes mellitus Status: Chronic Assessment and plan: SEE PLAN OF CARE LISTED BELOW Current Visit: No (11) DVT (deep venous thrombosis) Status: Acute Assessment and plan: SEE PLAN OF CARE LISTED BELOW Current Visit: Yes Qualifiers: Affected thrombotic vein of extremity: other lower extremity vein Laterality: right Chronicity: acute (12) Renal insufficiency Status: Acute Assessment and plan: SEE PLAN OF CARE LISTED BELOW Current Visit: Yes Cardiology - PN: Subj Interval history: 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 RUIZ Patient is being seen in the CCU SUMMARY: Ms. Cardoso, 61BF, previously followed by Dr. Dangelo. History of hypertension, obesity, recurrent pneumonia, COPD. According to Dr. Dangelo's notes, she has no prior history of known coronary artery disease. Patient states that she has had a heart catheterization at [facility] approximately 2 years ago and may have received a stent. There is no record of a cardiac catheterization at this institution. Patient presented to the ER March 06, 2017 for acute shortness of breath, swelling. She was treated for acute CHF, possibly community acquired pneumonia , COPD exacerbation and tachycardia. MARCH 08, 2017: This morning, patient is comfortable. She is no longer in respiratory distress. Venous ultrasound bilateral lower extremity reveals right saphenous DVT, now on therapeutic Lovenox dose. She was ruled out for PE with VQ lung scan. IV Levaquin was initiated. I will reorder chest x-ray this morning. White blood cell count is increased to 14.2 however she has received steroids. TSH is low and will defer to attending for management. Patient diuresed well although her weight did not change much overnight. Troponin has increased to 2.9, however creatinine has increased overnight to 2.6. Patient had reported she believes she may have had a heart catheterization in the past. We have no records here of a heart catheterization being performed. This morning, she believes she may have had this done at [facility] and we have requested these records. Blood pressure is adequately controlled. EKG has been ordered for this morning. Echocardiogram: EF 60%, PAP 58 mmHg + RAP, decreased right ventricular systolic function. I will add a vasodilator today. At some point, patient may benefit from cardiac catheterization once her multiple comorbidities (now worsened renal insufficiency) has improved. She is breathing much more comfortably today. I will further discuss with Dr. Parra and await his recommendations. ASSESSMENT/PLAN: 1. SHORTNESS OF BREATH - multifactorial including CHF, possible CAP, morbid obesity, COPD, anxiety, sleep apnea and tachycardia. Continue with diuretics, pulmonary toilet, IV Levaquin. Much improved. Chest x-ray this morning. 2. ACUTE ON CHRONIC CHF - secondary to diastolic dysfunction, NYHA Class II today. Continue diuretics and afterload reduction. Strict I&O and daily weights. 3. POSSIBLE CAP - Continue Levaquin. Continue respiratory treatments. 4. HYPERTENSION - adequately controlled. Avoiding HEIDI inhibitors for fear of worsening renal insufficiency. 5. ACUTE ON CHRONIC RENAL INSUFFICIENCY, STAGE III - creatinine worse. Continue to monitor closely. 6. EDEMA - venous ultrasound bilateral lower extremity, d-dimer. 7. ELEVATED TROPONIN - we will continue to monitor. Increased to 2.9 in the setting of worsening renal insufficiency. EKG this morning. 8. HYPOMAGNESEMIA - replace per protocol 9. COPD - continue current plan of care 10. MORBID OBESITY - dietary counseling prior to discharge 11. VALERIE -appreciate Dr. De Dios's assistance. 12. COPD - continue aggressive pulmonary toilet. 13. DNR - continue current plan of care 14. DVT -therapeutic doses of Lovenox in use. Exam (Progress Note) - Constitutional Vitals: Period Temp Pulse Resp BP Sys/Alvarez Pulse Ox Last 24 Hr 97.6 F-98.7 F 90-120 12-103 101-153/64-97 84-99 Exam: General: [Appears well with no apparent distress.] [Pleasant and cooperative. ] [Appears comfortable.] HEENT: [PERRL, normocephalic, atraumatic. Mucous membranes moist. No jaundice noted. Conjunctiva moist and clear, sclerae anicteric] Neck: No JVD. No thyromegaly or lymphadenopathy noted. No carotid bruit appreciated Cardiac: [No obvious murmur rub or gallop is appreciated. Regular rhythm. Lungs: [Relatively clear to auscultation. Using oxygen via nasal cannula. Symmetrical chest wall movements noted. Abdomen: Soft, bowel sounds normoactive. Nontender and nondistended. No abdominal bruit or thrill noted. No masses noted. Musculoskeletal: No fluid collection. Decreased range of motion is noted. Extremities: No clubbing, cyanosis noted. [1+ bilateral lower extremity edema. ] Upper extremity pulses 2+. Lower extremity pulses 2+. Capillary refill less than 3 seconds. Skin: No unusual lesions or rashes. No skin breakdown appreciated. Neuro: Awake, alert and oriented 3. Moves all extremities well without hemiparesis or paralysis. No essential tremor is appreciated. Result/EKG - Labs CBC & BMP: 03/08/17 08:36 03/08/17 01:22 Lab Results: I have reviewed the past 24 hour labs Labs: Laboratory Results - last 24 hr 03/07/17 03/07/17 03/07/17 05:26 05:26 10:32 WBC 10.3 RBC 4.69 Hgb 13.9 Hct 45.2 MCV 96.4 MCH 30 MCHC 30.8 L RDW 19.3 H Plt Count 312 MPV 10.8 Neut % (Auto) 94.0 H Lymph % (Auto) 4.6 L [place] % (Auto) 0.7 L Eos % (Auto) 0.0 Baso % (Auto) 0.0 Neut # (Auto) 9.7 H Lymph # (Auto) 0.5 L [place] # (Auto) 0.1 L Eos # (Auto) 0.0 Baso # (Auto) 0.0 Total Counted 100 Immature Gran % 0.7 Nucleated RBC % 0.8 Immature Gran # 0.07 Segmented Neutrophils 94 H Lymphocytes 5 L Monocytes 1 L Nucleated RBCs # 0.08 Platelet Estimate Adequate Hypochromasia 1+ Ovalocytes Slight Morphology Comment D-Dimer, Quantitative ABG pH ABG pCO2 ABG pO2 ABG HCO3 ABG Total CO2 ABG O2 Saturation ABG Base Excess Sodium Potassium Chloride Carbon Dioxide Anion Gap BUN Creatinine GFR Calculation BUN/Creatinine Ratio Glucose POC Glucose Hemoglobin A1c Calculated Osmolality Calcium Magnesium Total Creatine Kinase CK-MB (CK-2) CK and CKMB Interp Troponin I Triglycerides 98 Cholesterol 137 LDL Cholesterol 68.0 VLDL Cholesterol 19.6 HDL Cholesterol 59 Heart Disease Risk Ratio 2.32 Free T4 1.36 TSH 3rd Generation 0.153 L Theophylline 03/07/17 03/07/17 03/07/17 10:32 10:32 10:32 WBC RBC Hgb Hct MCV MCH MCHC RDW Plt Count MPV Neut % (Auto) Lymph % (Auto) [place] % (Auto) Eos % (Auto) Baso % (Auto) Neut # (Auto) Lymph # (Auto) [place] # (Auto) Eos # (Auto) Baso # (Auto) Total Counted Immature Gran % Nucleated RBC % Immature Gran # Segmented Neutrophils Lymphocytes Monocytes Nucleated RBCs # Platelet Estimate Hypochromasia Ovalocytes Morphology Comment D-Dimer, Quantitative 2.9 ABG pH ABG pCO2 ABG pO2 ABG HCO3 ABG Total CO2 ABG O2 Saturation ABG Base Excess Sodium 144 Potassium 4.0 Chloride 102 Carbon Dioxide 30 Anion Gap 16.0 H BUN 38 H Creatinine 1.80 H GFR Calculation 42 BUN/Creatinine Ratio 21.00 H Glucose 163 H POC Glucose Hemoglobin A1c Calculated Osmolality 298.8 Calcium 8.8 Magnesium 1.6 L Total Creatine Kinase 58 CK-MB (CK-2) 6.6 H CK and CKMB Interp 11.4 Troponin I 0.862 H D Triglycerides Cholesterol LDL Cholesterol VLDL Cholesterol HDL Cholesterol Heart Disease Risk Ratio Free T4 TSH 3rd Generation Theophylline 03/07/17 03/07/17 03/07/17 12:02 16:08 17:25 WBC RBC Hgb Hct MCV MCH MCHC RDW Plt Count MPV Neut % (Auto) Lymph % (Auto) [place] % (Auto) Eos % (Auto) Baso % (Auto) Neut # (Auto) Lymph # (Auto) [place] # (Auto) Eos # (Auto) Baso # (Auto) Total Counted Immature Gran % Nucleated RBC % Immature Gran # Segmented Neutrophils Lymphocytes Monocytes Nucleated RBCs # Platelet Estimate Hypochromasia Ovalocytes Morphology Comment D-Dimer, Quantitative ABG pH 7.360 ABG pCO2 55.6 H ABG pO2 49.6 L ABG HCO3 27.8 H ABG Total CO2 27.5 H ABG O2 Saturation 80.2 L ABG Base Excess 4.3 H Sodium Potassium Chloride Carbon Dioxide Anion Gap BUN Creatinine GFR Calculation BUN/Creatinine Ratio Glucose POC Glucose 101 Hemoglobin A1c Calculated Osmolality Calcium Magnesium Total Creatine Kinase 56 CK-MB (CK-2) 6.0 H CK and CKMB Interp 10.7 Troponin I 1.710 H D Triglycerides Cholesterol LDL Cholesterol VLDL Cholesterol HDL Cholesterol Heart Disease Risk Ratio Free T4 TSH 3rd Generation Theophylline 03/07/17 03/08/17 03/08/17 20:47 01:22 01:22 WBC RBC Hgb Hct MCV MCH MCHC RDW Plt Count MPV Neut % (Auto) Lymph % (Auto) [place] % (Auto) Eos % (Auto) Baso % (Auto) Neut # (Auto) Lymph # (Auto) [place] # (Auto) Eos # (Auto) Baso # (Auto) Total Counted Immature Gran % Nucleated RBC % Immature Gran # Segmented Neutrophils Lymphocytes Monocytes Nucleated RBCs # Platelet Estimate Hypochromasia Ovalocytes Morphology Comment D-Dimer, Quantitative ABG pH ABG pCO2 ABG pO2 ABG HCO3 ABG Total CO2 ABG O2 Saturation ABG Base Excess Sodium Potassium Chloride Carbon Dioxide Anion Gap BUN Creatinine GFR Calculation BUN/Creatinine Ratio Glucose POC Glucose 180 H Hemoglobin A1c Calculated Osmolality Calcium Magnesium Total Creatine Kinase CK-MB (CK-2) CK and CKMB Interp Troponin I Triglycerides 84 Cholesterol 142 LDL Cholesterol 74.0 VLDL Cholesterol 16.8 HDL Cholesterol 61 H Heart Disease Risk Ratio 2.33 Free T4 TSH 3rd Generation Theophylline 16.1 03/08/17 03/08/17 03/08/17 01:22 01:22 01:22 WBC RBC Hgb Hct MCV MCH MCHC RDW Plt Count MPV Neut % (Auto) Lymph % (Auto) [place] % (Auto) Eos % (Auto) Baso % (Auto) Neut # (Auto) Lymph # (Auto) [place] # (Auto) Eos # (Auto) Baso # (Auto) Total Counted Immature Gran % Nucleated RBC % Immature Gran # Segmented Neutrophils Lymphocytes Monocytes Nucleated RBCs # Platelet Estimate Hypochromasia Ovalocytes Morphology Comment D-Dimer, Quantitative ABG pH ABG pCO2 ABG pO2 ABG HCO3 ABG Total CO2 ABG O2 Saturation ABG Base Excess Sodium 141 Potassium 4.4 Chloride 100 Carbon Dioxide 30 Anion Gap 15.4 H BUN 45 H Creatinine 2.60 H GFR Calculation 27 BUN/Creatinine Ratio 17.00 Glucose 144 H POC Glucose Hemoglobin A1c Calculated Osmolality 295.3 Calcium 8.9 Magnesium 2.1 2.1 Total Creatine Kinase 50 CK-MB (CK-2) 5.0 H CK and CKMB Interp Troponin I 2.970 H D Triglycerides Cholesterol LDL Cholesterol VLDL Cholesterol HDL Cholesterol Heart Disease Risk Ratio Free T4 TSH 3rd Generation Theophylline 03/08/17 03/08/17 03/08/17 01:22 03:35 07:39 WBC RBC Hgb Hct MCV MCH MCHC RDW Plt Count MPV Neut % (Auto) Lymph % (Auto) [place] % (Auto) Eos % (Auto) Baso % (Auto) Neut # (Auto) Lymph # (Auto) [place] # (Auto) Eos # (Auto) Baso # (Auto) Total Counted Immature Gran % Nucleated RBC % Immature Gran # Segmented Neutrophils Lymphocytes Monocytes Nucleated RBCs # Platelet Estimate Hypochromasia Ovalocytes Morphology Comment D-Dimer, Quantitative ABG pH 7.452 H ABG pCO2 45.1 ABG pO2 45.9 L ABG HCO3 30.0 H ABG Total CO2 27.6 H ABG O2 Saturation 79.6 L ABG Base Excess 6.6 H Sodium Potassium Chloride Carbon Dioxide Anion Gap BUN Creatinine GFR Calculation BUN/Creatinine Ratio Glucose POC Glucose 118 H Hemoglobin A1c 6.5 H Calculated Osmolality Calcium Magnesium Total Creatine Kinase CK-MB (CK-2) CK and CKMB Interp Troponin I Triglycerides Cholesterol LDL Cholesterol VLDL Cholesterol HDL Cholesterol Heart Disease Risk Ratio Free T4 TSH 3rd Generation Theophylline 03/08/17 08:36 WBC 14.2 H D RBC 4.66 Hgb 13.9 Hct 45.0 MCV 96.6 MCH 30 MCHC 30.9 L RDW 19.4 H Plt Count 305 MPV 10.3 Neut % (Auto) 89.0 H Lymph % (Auto) 6.1 L [place] % (Auto) 3.7 Eos % (Auto) 0.0 Baso % (Auto) 0.1 Neut # (Auto) 12.6 H Lymph # (Auto) 0.9 L [place] # (Auto) 0.5 Eos # (Auto) 0.0 Baso # (Auto) 0.0 Total Counted Immature Gran % 1.1 Nucleated RBC % 1.7 Immature Gran # 0.15 Segmented Neutrophils Lymphocytes Monocytes Nucleated RBCs # 0.24 Platelet Estimate Hypochromasia Ovalocytes Morphology Comment D-Dimer, Quantitative ABG pH ABG pCO2 ABG pO2 ABG HCO3 ABG Total CO2 ABG O2 Saturation ABG Base Excess Sodium Potassium Chloride Carbon Dioxide Anion Gap BUN Creatinine GFR Calculation BUN/Creatinine Ratio Glucose POC Glucose Hemoglobin A1c Calculated Osmolality Calcium Magnesium Total Creatine Kinase CK-MB (CK-2) CK and CKMB Interp Troponin I Triglycerides Cholesterol LDL Cholesterol VLDL Cholesterol HDL Cholesterol Heart Disease Risk Ratio Free T4 TSH 3rd Generation Theophylline - Diagnostic Findings Procedure: Chest x-ray: pending, Ultrasound: report reviewed by me (Venous ultrasound, echocardiogram) - EKG EKG results: interpreted by me EKG shows: sinus rhythm
--- NOTE | 2017-03-08 12:49 | Hospitalist Progress Note ---
Assessment and Plan (1) Acute and chronic respiratory failure ([id number]) Status: Acute Assessment and plan: duonebs, steroids, levaquin Current Visit: Yes (2) Hypomagnesemia Status: Acute Assessment and plan: cont daily mag replacement and monitoring Current Visit: Yes (3) Theophylline toxicity Status: Acute Assessment and plan: hold manish Current Visit: Yes (4) Hypertension Status: Chronic Assessment and plan: controlled Current Visit: Yes (5) Obstructive sleep apnea syndrome Status: Chronic Assessment and plan: compliant with cpap Current Visit: Yes (6) Acute exacerbation of chronic obstructive pulmonary disease (COPD) Status: Acute Assessment and plan: duonebs and steroids, levaquin Current Visit: No (7) Diabetes mellitus Status: Chronic Assessment and plan: hgb a1c 6.5 isc Current Visit: No (8) Bilateral pulmonary infiltrates on chest x-ray Status: Acute Assessment and plan: Initial chest x-ray read as congestive heart failure. Echocardiogram shows normal EF of 60% and mainly right-sided heart failure. Patient has moderate pulmonary hypertension tricuspid regurg. Levaquin was added appropriately. Lasix has been discontinued. Current Visit: Yes (9) NSTEMI (non-ST elevated myocardial infarction) Status: Acute Assessment and plan: Dr. Parra feels she needs a cardiac eval LHC+RHC. Assess reversibility of PHTN, r /o CAD as cause for elev cardiac enzymes -DVT. Swithc LMWH to Eliquis. Although she does not seem to have a PE, I would suggest lifelong anticoagulation as she already has significant RV dysfunction Original Note: Current Visit: Yes (10) Pulmonary HTN Status: Acute Assessment and plan: may give false elevated BNP, patient will have to see specialist at [facility] Current Visit: Yes (11) Acute on chronic renal failure Status: Acute Assessment and plan: Patient initially was thought to have left-sided congestive heart failure and diuresis with Lasix. Her worsening renal function suggests that she may be dehydrated. I have stopped her Lasix and given her normal saline back. Patient has significant right-sided heart failure and poor filling pressures will worsen her output. Will defer to Dr. Acevedo. Renal ultrasound was ordered. Current Visit: Yes Hospitalist: Subjective Interval history: Patient reports she does not feel well today. She denies any chest pain and she says that her shortness of breath is better. I am still concerned as her troponins are increasing. Dr. Parra switch her over to Eliquis. He feels she needs anticoagulation due to RV dysfunction. Her creatinine is much worse today and her urine output has really dropped off.. Dr. Acevedo should be seeing her later. She does wear her CPAP at night she is very compliant. She is still requiring 5 L of oxygen. She is having some abdominal pain. We will get a CT. I am not comfortable moving her out of the ICU Exam - Constitutional Vitals: Period Temp Pulse Resp BP Sys/Alvarez Pulse Ox Last 24 Hr 97.6 F-98.7 F 90-102 12-103 101-153/64-97 84-99 Exam: Heart Rate-[tachycardia] Lungs-[very diminished] GI-[+bs soft, diffusely tender] Ext-[some edema] Neuro [Motor 5/5], [alert and oriented times 3] psych depressed mood and affect] General [mild acute distress] Results - Labs CBC & BMP: 03/08/17 08:36 03/08/17 01:22 Lab Results: I have reviewed the past 24 hour labs Labs: Blood cultures 2 negative - Diagnostic Findings Procedure: X-ray: report reviewed by me (VQ scan negative for PE)
[2017-03-08] MEDS: ASPIRIN EC 81 MG TABLET PO SCH (13:48)
--- NOTE | 2017-03-08 14:07 | XRay Report ---
History: Shortness of breath Date: 03/08/2017 Study: Chest x-ray AP portable Comparison exam: 03/07/2017 There is continued cardiomegaly. The pulmonary vasculature is slightly prominent. There is no mediastinal mass. There is moderate aortic arch calcification. There is some minimal hazy pulmonary edema, though this has improved. There is no new or worsening infiltrate. There is no gross increasing pleural effusion. Osseous structures are similar. Impression: Improving CHF/volume overload with only minimal residual bibasilar pulmonary edema present PROCEDURE INTERPRETED AT [facility] DEPARTMENT OF RADIOLOGY Final Report Signed by: Dr. Brooke Graf
--- NOTE | 2017-03-08 14:08 | CT Report ---
Referring physician: Indira Astorga EXAM: CT abdomen and pelvis without contrast DATE: March 08, 2017 COMPARISON: CT chest PE study July 06, 2016 REASON: Generalized abdominal pain TECHNIQUE: Axial images of the abdomen and pelvis were obtained without the use of IV contrast. Oral contrast was administered. Coronal and sagittal reformatted images were also provided. Total DLP is 1000.3 mGy*cm. FINDINGS: Lower thorax: There is cardiomegaly and mild scattered atelectasis and probable scarring at both lung bases. There is also prominent centrilobular emphysema. ABDOMEN: Liver: Unremarkable. Gallbladder and bile ducts: The gallbladder is unremarkable. No biliary duct dilatation is present. Pancreas: The pancreas is unremarkable as visualized. There is mild fat stranding within the mid abdomen adjacent to the distal duodenum, mesenteric root and pancreatic head. This is nonspecific but could be related to an inflammatory process, possibly involving the duodenum or pancreas. Correlation with lipase levels is recommended. Spleen: Unremarkable. Adrenals: There is stable nonspecific nodular thickening of the left adrenal gland. A 2.2 cm right adrenal nodule is present and demonstrates Hounsfield units of 2. It is also stable in size compared to July 06, 2016 and is favored to represent an adrenal adenoma. Kidneys and ureters: No hydronephrosis is present, and no renal or ureteral calculi are seen. Bilateral renal hypodensities are present. The largest on the right measures 2.5 cm, and the largest on the left measures 2.4 cm. They are most consistent with cysts, but characterization is limited by the lack of contrast and small size of some of the hypodensities. PELVIS: Bladder: A Raphael catheter is in place, and the bladder is decompressed. There is mild air within the bladder, which could be related to catheterization. Reproductive: Unremarkable as visualized. ABDOMEN AND PELVIS: Bowel: There is no evidence of bowel obstruction. There is mild fat stranding adjacent to the distal duodenum as mentioned above. Appendix: The appendix is unremarkable. Vasculature: The abdominal aorta is mildly ectatic, measuring 2.6 cm below the renal arteries. There is also moderate scattered calcified plaque at the arteries. Peritoneum: No free air or ascites is seen. There is mild fat stranding within the mid abdomen as described above. Lymph nodes: There is an upper normal-sized right retrocrural lymph node versus prominent draining vein on image 41. Abdominal/pelvic wall: There is mild to moderate anasarca. Diffuse skin thickening is seen at the lower anterior abdominal wall. This raises the possibility of cellulitis. There is also minimal scattered subcutaneous air, but this could be related to recent injections. Bones: No acute osseous process is identified. IMPRESSION: 1. There is mild fat stranding within the mid abdomen adjacent to the duodenum, pancreatic head and mesenteric root. This is nonspecific but could reflect mild inflammation, possibly involving the distal duodenum or pancreas. Please correlate with lipase levels. 2. Mild to moderate anasarca. There is also diffuse skin thickening at the lower abdominal wall. This raises the possibility of cellulitis. 3. Mild atelectasis and probable scarring at both lung bases and prominent emphysema. 4. Bilateral renal cysts, some of which are not well characterize. 5. Stable right adrenal nodule, favored to represent an adrenal adenoma. There is also stable nodular thickening of the left adrenal gland. The CT exam was performed using one or more of the following dose reduction techniques: Automated exposure control and adjustment of the mA and/or kV according to patient size. PROCEDURE INTERPRETED AT [facility] DEPARTMENT OF RADIOLOGY Final Report Signed by: Dr. Iraj Rodriguez
--- NOTE | 2017-03-08 14:09 | Ultrasound Report ---
History: Elevated creatinine level. Hydronephrosis. Acute worsening Date: 03/08/2017 Study: Renal ultrasound kidneys only Comparison exam: Noncontrast CT abdomen 03/08/2017 Real-time ultrasound images are captured and archived. The renal parenchyma is slightly hyperechoic compared to the hepatic parenchyma compatible with mild diffuse medical renal parenchymal disease. The right kidney measures 10.2 x 5.8 x 5.1 cm; the left kidney measures 11.1 x 5.1 x 4.3 cm. There is no hydronephrosis or abnormal perinephric fluid. There is a 2.6 cm simple cyst in the mid right kidney as well as 2.6 cm simple cyst in the mid left kidney. Impression: Medical renal parenchymal disease. No hydronephrosis. Benign renal cysts PROCEDURE INTERPRETED AT [facility] DEPARTMENT OF RADIOLOGY Final Report Signed by: Dr. Brooke Graf
--- NOTE | 2017-03-08 14:23 | Nephrology Consult Note ---
History of Present Illness Chief complaint: Acute on chronic kidney disease History of present illness: Ms. Cardoso is a 61 year old female with history of coronary artery disease COPD obesity diabetes who presented with increased shortness of breath the last night. She did further workup to include her cardiac enzymes CT of the abdomen and a CT PE protocol. She had low probability for pulmonary embolus she has been in the ICU setting at this time for which her breathing has improved. Serum creatinine is noted to be 2.60. Nephrology is been consulted for renal issues. The patient gives no history of renal disease. There is mild intermittent history of NSAID use. Her last hemoglobin A1c was noted to be 6.5. She did have a renal ultrasound done which showed evidence of medical renal disease and simple cyst noted. Again patient states her breathing has improved. Lower extremity swelling is improving. Home Medications Medication Instructions Recorded Confirmed Type Escitalopram [Lexapro] 20 mg PO DAILY 11/08/15 03/07/17 History Albuterol Sulfate [Ventolin HFA] 2 puff INH Q4H PRN #1 inhaler 07/13/16 Rx Metoprolol Tartrate 50 mg PO BID #60 tablet 07/13/16 03/07/17 Rx Pantoprazole Tab [Protonix Tab] 40 mg PO DAILY #30 tablet 07/13/16 03/07/17 Rx Theophylline ER Tab 300 mg PO BID W/MEALS #60 tablet 07/13/16 03/07/17 Rx Aspirin [Ecotrin] 325 mg PO DAILY 03/07/17 03/07/17 History Furosemide Tab [Lasix Tab] 40 mg PO DAILY 03/07/17 03/07/17 History Insulin Lispro [HumaLOG] See Protocol SUBCUT ACHS PRN 03/07/17 03/07/17 History LORazepam [Lorazepam] 0.5 mg PO BID PRN 03/07/17 03/07/17 History predniSONE TAB [PredniSONE] 10 mg PO DAILY 03/07/17 03/07/17 History Allergies Allergy/AdvReac Type Severity Reaction Status Date / Time No Known Allergies Allergy Verified 01/16/15 17:54 Medical,Surgical,& Family Hx - Medical History Cardio: History of: CHF (unclear diagnosis), CAD, Hypertension No history of: Cardiac Dysrhythmia, [place], Valvular Heart Disease Neurology: No history of: Cerebrovascular Accident Endocrine: History of: Diabetes Mellitus (NIDDM), Dyslipidemia No history of: Thyroid Disorder Respiratory: History of: Bronchitis, COPD, Obstructive Sleep Apnea - Surgical History Cardiac Surgeries: Sugical HX of: Cardiac Catheterization (stent times 2) Abdominal Surgeries: Patient denies: Abdominal Surgery - Social History Smoking Status: Current every day smoker Frequency of Alcohol Use: None Type of Drug Use: None Review of Systems Constitutional: no anorexia, no chills, no lethargy, no malaise Nose, mouth and throat: no dysphagia, no epistaxis Cardiovascular: dyspnea, dyspnea on exertion Respiratory: dyspnea Gastrointestinal: no abdominal pain Genitourinary: no flank pain Exam - Vital Signs Vital signs: Period Temp Pulse Resp BP Sys/Alvarez Pulse Ox Last 24 Hr 98.7 F-98.7 F 90-101 12-103 101-153/64-97 84-99 - General Appearance General appearance: well-developed, well-nourished EENT: ATNC, PERRL, mucous membranes moist Neck: no thyromegaly, supple Respiratory: clear Cardiology: regular rate, regular rhythm Gastrointestinal: normoactive bowel sounds, no tenderness, no guarding Integumentary: no rash Neurologic: no asterixis, alert and oriented x3, CN 3-12 intact Musculoskeletal: no clubbing Psychiatric: mood/affect appropriate, cooperative Results - Labs CBC & BMP: 03/08/17 08:36 03/08/17 01:22 Assessment and Plan (1) Type 2 diabetes mellitus Status: Chronic Assessment and plan: Patient with a history of diabetes appears to have underlying chronic kidney disease due to diabetes as it relates to the recent renal ultrasound. Current Visit: No Qualifiers: Diabetes mellitus complication status: with kidney complications Diabetes mellitus complication detail: with chronic kidney disease Chronic kidney disease stage: stage 3 (moderate) (2) Acute renal failure due to tubular necrosis Status: Acute Assessment and plan: Appears to be acute on chronic renal failure. Recommendations daily BMP. Avoid nephrotoxic agents. Renal ultrasound noted. Current Visit: No (3) Hypertension Status: Chronic Current Visit: Yes (4) Diabetes mellitus Status: Chronic Current Visit: No Qualifiers: Diabetes mellitus type: type 2 Diabetes mellitus complication detail: with chronic kidney disease Chronic kidney disease stage: stage 3 (moderate)
[2017-03-08] MEDS: SODIUM CHLORIDE 0.9% 1,000 ML IV SCH (14:32)
[2017-03-08] MEDS: LORazepam 0.5 MG TABLET PO PRN (15:50)
--- NOTE | 2017-03-08 19:53 | Sleep Medicine Progress Note ---
Assessment and Plan (1) Obstructive sleep apnea syndrome Status: Chronic Assessment and plan: I stressed the importance of compliance with her ASV therapy. She has been having to get up a lot at night at home to urinate on chronic diuretic therapy. I encouraged her to disconnect her hose from her mask and then reconnect after returning from the bathroom. This may help with compliance. Current Visit: Yes (2) Acute exacerbation of chronic obstructive pulmonary disease (COPD) Status: Acute Current Visit: No (3) Hypertension Status: Chronic Current Visit: Yes (4) Type 2 diabetes mellitus Status: Chronic Current Visit: No Qualifiers: Diabetes mellitus complication status: with kidney complications Diabetes mellitus complication detail: with chronic kidney disease Chronic kidney disease stage: stage 3 (moderate) Sleep Medicine Subjective Interval history: I was able to review the downloaded compliance data from Ms. Cardoso. She has been less than ideally compliant in the last month with only a 36% usage of her ASV device and a 26% usage for over 4 hours. Her actual average on days used was 5 hours and 54 minutes. She did have excellent control of her sleep apnea with an average AHI of 0.1 when utilized. Exam (Progress Note) - Constitutional Vitals: Period Temp Pulse Resp BP Sys/Alvarez Pulse Ox Last 24 Hr 98.5 F-98.7 F 85-101 12-30 101-153/64-94 88-99 Exam: She is alert and responsive in no acute distress at present. Chest with symmetrical breath sounds without significant wheeze or rhonchi. Cardiac exam reveals a regular rhythm without murmur or gallop. Abdomen soft nontender. Neurologically, she is grossly intact. She moves all extremities with good strength. Results - Labs CBC & BMP: 03/08/17 08:36 03/08/17 01:22 Lab Results: I have reviewed the past 24 hour labs
[2017-03-08] MEDS: APIXABAN 5 MG TABLET PO SCH (21:53)
[2017-03-09] MEDS: SODIUM CHLORIDE 0.9% 1,000 ML IV SCH ×2 (03:44→16:46)
[2017-03-09] MEDS: ALBUTEROL/IPRATROPIUM 3 ML NEB RESP TX SCH ×7 (04:08→23:37)
[2017-03-09] MEDS: methylPREDNISolone SOD SUC 40 MG/1 ML VIAL IV SCH ×3 (05:49→22:32)
--- NOTE | 2017-03-09 07:47 | Cardiology Progress Note ---
Assessment and Plan - Time spent with patient Time spent with patient: Greater than 30 minutes (1) Obesity (BMI 30-39.9) Status: Chronic Assessment and plan: SEE PLAN OF CARE LISTED BELOW Current Visit: Yes (2) Acute and chronic respiratory failure ([id number]) Status: Acute Assessment and plan: SEE PLAN OF CARE LISTED BELOW Current Visit: Yes (3) Congestive heart failure Status: Acute Assessment and plan: SEE PLAN OF CARE LISTED BELOW Current Visit: Yes Qualifiers: Congestive heart failure type: diastolic Congestive heart failure chronicity: acute on chronic Qualified Code(s): I50.33 - Acute on chronic diastolic (congestive) heart failure (4) Elevated troponin Status: Chronic Assessment and plan: SEE PLAN OF CARE LISTED BELOW Current Visit: Yes (5) Hypoxia Status: Acute Assessment and plan: SEE PLAN OF CARE LISTED BELOW Current Visit: Yes (6) Obstructive sleep apnea syndrome Status: Chronic Assessment and plan: SEE PLAN OF CARE LISTED BELOW Current Visit: Yes (7) COPD (chronic obstructive pulmonary disease) Status: Chronic Current Visit: Yes (8) Hypertension Status: Chronic Assessment and plan: SEE PLAN OF CARE LISTED BELOW Current Visit: Yes (9) Left ventricular hypertrophy Status: Chronic Assessment and plan: SEE PLAN OF CARE LISTED BELOW Current Visit: No (10) Diabetes mellitus Status: Chronic Assessment and plan: SEE PLAN OF CARE LISTED BELOW Current Visit: No Qualifiers: Diabetes mellitus type: type 2 Diabetes mellitus complication detail: with chronic kidney disease Chronic kidney disease stage: stage 3 (moderate) (11) DVT (deep venous thrombosis) Status: Acute Assessment and plan: SEE PLAN OF CARE LISTED BELOW Current Visit: Yes Qualifiers: Affected thrombotic vein of extremity: other lower extremity vein Laterality: right Chronicity: acute (12) Renal insufficiency Status: Acute Assessment and plan: SEE PLAN OF CARE LISTED BELOW Current Visit: Yes Cardiology - PN: Subj Interval history: CORPORATE TRAINER: DR. DANGELO PCP: DR. RUIZ Patient is being seen in the CCU SUMMARY: Ms. Cardoso, 61BF, previously followed by Dr. Dangelo. History of hypertension, obesity, recurrent pneumonia, COPD. According to Dr. Dangelo's notes, she has no prior history of known coronary artery disease. Patient states that she has had a heart catheterization at [facility] approximately 2 years ago and may have received a stent. There is no record of a cardiac catheterization at this institution. Patient presented to the ER March 06, 2017 for acute shortness of breath, swelling. She was treated for acute CHF, possibly community acquired pneumonia , COPD exacerbation and tachycardia. MARCH 08, 2017: This morning, patient is comfortable. She is no longer in respiratory distress. Venous ultrasound bilateral lower extremity reveals right saphenous DVT, now on therapeutic Lovenox dose. She was ruled out for PE with VQ lung scan. IV Levaquin was initiated. I will reorder chest x-ray this morning. White blood cell count is increased to 14.2 however she has received steroids. TSH is low and will defer to attending for management. Patient diuresed well although her weight did not change much overnight. Troponin has increased to 2.9, however creatinine has increased overnight to 2.6. Patient had reported she believes she may have had a heart catheterization in the past. We have no records here of a heart catheterization being performed. This morning, she believes she may have had this done at [facility] and we have requested these records. Blood pressure is adequately controlled. EKG has been ordered for this morning. Echocardiogram: EF 60%, PAP 58 mmHg + RAP, decreased right ventricular systolic function. I will add a vasodilator today. At some point, patient may benefit from cardiac catheterization once her multiple comorbidities (now worsened renal insufficiency) has improved. She is breathing much more comfortably today. I will further discuss with Dr. Parra and await his recommendations. MARCH 09, 2017: Patient states she has had a good night. Denies chest pain, heaviness or tightness. Kidney function continues to worsen. Creatinine this morning 3.1. No CBC ordered today, I will order for tomorrow. She is afebrile however. Still waiting on records from [facility]. Patient reports she believes she had a heart catheterization [facility]. Hydralazine was added yesterday. I will increase her dose to 50 mg orally 3 times daily as her blood pressure appears to be able to handle this. Eventually , patient may require cardiac catheterization. We must let her other comorbidities improve and stabilize prior to proceeding. Patient has lost 2 kg overnight. Continue Eliquis. ASSESSMENT/PLAN: 1. SHORTNESS OF BREATH - multifactorial including CHF, possible CAP, morbid obesity, COPD, anxiety, sleep apnea and tachycardia. Aggressive pulmonary toilet, IV Levaquin. Much improved. 2. ACUTE ON CHRONIC CHF - secondary to diastolic dysfunction, NYHA Class II today. Continue afterload reduction. Strict I&O and daily weights. 3. POSSIBLE CAP - Continue Levaquin. Continue respiratory treatments. 4. HYPERTENSION - adequately controlled. Avoiding HEIDI inhibitors for fear of worsening renal insufficiency. 5. ACUTE ON CHRONIC RENAL INSUFFICIENCY, STAGE IV - creatinine worse. Continue to monitor closely. 6. EDEMA - negative DVT study. 7. ELEVATED TROPONIN - we will continue to monitor. Increased to 2.9 in the setting of worsening renal insufficiency. 8. HYPOMAGNESEMIA - replace per protocol 9. COPD - continue current plan of care 10. MORBID OBESITY - dietary counseling prior to discharge 11. VALERIE - appreciate Dr. De Dios's assistance. 12. COPD - continue aggressive pulmonary toilet. 13. DNR - continue current plan of care 14. DVT - Eliquis has been initiated. Exam (Progress Note) - Constitutional Vitals: Period Temp Pulse Resp BP Sys/Alvarez Pulse Ox Last 24 Hr 97.4 F-98.7 F 79-103 14-28 109-147/74-97 80-100 Exam: General: [Appears well with no apparent distress.] [Pleasant and cooperative. ] [Appears comfortable.] HEENT: [PERRL, normocephalic, atraumatic. Mucous membranes moist. No jaundice noted. Conjunctiva moist and clear, sclerae anicteric] Neck: No JVD. No thyromegaly or lymphadenopathy noted. No carotid bruit appreciated Cardiac: [No obvious murmur rub or gallop is appreciated. Regular rhythm. Lungs: [Relatively clear to auscultation. Using oxygen via nasal cannula. Symmetrical chest wall movements noted. Abdomen: Soft, bowel sounds normoactive. Nontender and nondistended. No abdominal bruit or thrill noted. No masses noted. Musculoskeletal: No fluid collection. Decreased range of motion is noted. Extremities: No clubbing, cyanosis noted. [1+ bilateral lower extremity edema. ] Upper extremity pulses 2+. Lower extremity pulses 2+. Capillary refill less than 3 seconds. Skin: No unusual lesions or rashes. No skin breakdown appreciated. Neuro: Awake, alert and oriented 3. Moves all extremities well without hemiparesis or paralysis. No essential tremor is appreciated. Result/EKG - Labs CBC & BMP: 03/08/17 08:36 03/09/17 08:14 Lab Results: I have reviewed the past 24 hour labs Labs: Laboratory Results - last 24 hr 03/08/17 03/08/17 03/08/17 01:22 07:39 08:36 WBC 14.2 H D RBC 4.66 Hgb 13.9 Hct 45.0 MCV 96.6 MCH 30 MCHC 30.9 L RDW 19.4 H Plt Count 305 MPV 10.3 Neut % (Auto) 89.0 H Lymph % (Auto) 6.1 L Glynn % (Auto) 3.7 Eos % (Auto) 0.0 Baso % (Auto) 0.1 Neut # (Auto) 12.6 H Lymph # (Auto) 0.9 L Glynn # (Auto) 0.5 Eos # (Auto) 0.0 Baso # (Auto) 0.0 Immature Gran % 1.1 Nucleated RBC % 1.7 Immature Gran # 0.15 Nucleated RBCs # 0.24 POC Glucose 118 H Triglycerides 84 Cholesterol 142 LDL Cholesterol 74.0 VLDL Cholesterol 16.8 HDL Cholesterol 61 H Heart Disease Risk Ratio 2.33 03/08/17 03/08/17 03/08/17 11:25 16:31 19:36 WBC RBC Hgb Hct MCV MCH MCHC RDW Plt Count MPV Neut % (Auto) Lymph % (Auto) Glynn % (Auto) Eos % (Auto) Baso % (Auto) Neut # (Auto) Lymph # (Auto) Glynn # (Auto) Eos # (Auto) Baso # (Auto) Immature Gran % Nucleated RBC % Immature Gran # Nucleated RBCs # POC Glucose 173 H 119 H 161 H Triglycerides Cholesterol LDL Cholesterol VLDL Cholesterol HDL Cholesterol Heart Disease Risk Ratio 03/09/17 07:04 WBC RBC Hgb Hct MCV MCH MCHC RDW Plt Count MPV Neut % (Auto) Lymph % (Auto) Glynn % (Auto) Eos % (Auto) Baso % (Auto) Neut # (Auto) Lymph # (Auto) Glynn # (Auto) Eos # (Auto) Baso # (Auto) Immature Gran % Nucleated RBC % Immature Gran # Nucleated RBCs # POC Glucose 111 H Triglycerides Cholesterol LDL Cholesterol VLDL Cholesterol HDL Cholesterol Heart Disease Risk Ratio - EKG EKG results: interpreted by me EKG shows: sinus rhythm
[2017-03-09] MEDS ORDERED: FUROSEMIDE 40 MG/4 ML VIAL IV SCH ×2 (09:00→16:00)
[2017-03-09 09:07] LABS: Calcium 8.8 MG/DL (8.5-10.1); Osmolality,Calculated 289.1 MOS/KG (273-304); Potassium 5.1 MMOL/L (3.5-5.1)
[2017-03-09] MEDS: INSULIN LISPRO 100 UNIT/ML SUBCUT SCH ×4 (09:55→21:38)
[2017-03-09] MEDS: ESCITALOPRAM 10 MG TABLET PO SCH (10:22)
[2017-03-09] MEDS: ISOSORBIDE MONONITRATE 30 MG TABLET PO SCH (10:22)
[2017-03-09] MEDS: APIXABAN 5 MG TABLET PO SCH ×2 (10:23→21:38)
[2017-03-09] MEDS: ASPIRIN EC 81 MG TABLET PO SCH (10:23)
[2017-03-09] MEDS: hydrALAZINE 25 MG TABLET PO SCH ×2 (10:23→14:39)
[2017-03-09] MEDS: METOPROLOL TARTRATE 50 MG TABLET PO SCH ×2 (10:24→21:37)
[2017-03-09] MEDS: PANTOPRAZOLE 40 MG TABLET PO SCH (10:24)
--- NOTE | 2017-03-09 11:34 | Nephrology Progress Note ---
Nephrology - PN: Subj Interval history: Patient is resting no acute changes serum creatinine noted to be 3.1 which is up from serum creatinine of 2.6 on yesterday. Continue to encourage patient to drink plenty of fluids. Exam (PN)-Nephrology - Vital Signs Vital signs: Period Temp Pulse Resp BP Sys/Alvarez Pulse Ox Last 24 Hr 97.4 F-98.7 F 79-103 13-28 109-139/74-97 80-100 - General Appearance General appearance: well-developed, well-nourished EENT: ATNC Neck: supple Respiratory: clear Cardiology: no edema, regular rate, regular rhythm Gastrointestinal: normoactive bowel sounds, no tenderness Neurologic: alert and oriented x3 Musculoskeletal: no clubbing Psychiatric: mood/affect appropriate - Lab 03/08/17 08:36 03/09/17 08:14 Most recent lab results ABG pH 7.452 (7.35-7.45) H 03/08/17 03:35 ABG pCO2 45.1 MM HG (35-48) 03/08/17 03:35 ABG pO2 45.9 MM HG (80-95) L 03/08/17 03:35 ABG HCO3 30.0 MMOL/L (20-26) H 03/08/17 03:35 ABG O2 Saturation 79.6 % (95-100) L 03/08/17 03:35 Calcium 8.8 MG/DL (8.5-10.1) 03/09/17 08:14 Magnesium 2.1 MG/DL (1.8-2.4) 03/08/17 01:22 Assessment and Plan (1) Type 2 diabetes mellitus Status: Chronic Assessment and plan: Patient with a history of diabetes appears to have underlying chronic kidney disease due to diabetes as it relates to the recent renal ultrasound. Current Visit: No Qualifiers: Diabetes mellitus complication status: with kidney complications Diabetes mellitus complication detail: with chronic kidney disease Chronic kidney disease stage: stage 3 (moderate) (2) Acute renal failure due to tubular necrosis Status: Acute Assessment and plan: Appears to be acute on chronic renal failure. Recommendations daily BMP. Avoid nephrotoxic agents. Current Visit: No (3) Hypertension Status: Chronic Current Visit: Yes (4) Diabetes mellitus Status: Chronic Current Visit: No Qualifiers: Diabetes mellitus type: type 2 Diabetes mellitus complication detail: with chronic kidney disease Chronic kidney disease stage: stage 3 (moderate)
[2017-03-09] MEDS ORDERED: LEVOFLOXACIN INJ 250 MG in PREMIX 1 EACH IV SCH (12:00)
--- NOTE | 2017-03-09 12:17 | Sleep Medicine Progress Note ---
Assessment and Plan (1) Obstructive sleep apnea syndrome Status: Chronic Assessment and plan: Continue with ASV therapy for obstructive sleep apnea with treatment emergent central sleep apnea. Current Visit: Yes (2) Acute exacerbation of chronic obstructive pulmonary disease (COPD) Status: Acute Current Visit: No (3) Hypertension Status: Chronic Current Visit: Yes (4) Type 2 diabetes mellitus Status: Chronic Current Visit: No Qualifiers: Diabetes mellitus complication status: with kidney complications Diabetes mellitus complication detail: with chronic kidney disease Chronic kidney disease stage: stage 3 (moderate) Sleep Medicine Subjective Interval history: Patient does look and feel better today. Nurses state that she used her ASV device all night. She is responding better overall. I did review her recent ASV compliance data with her. She has not been compliant with it as well as she needs to be. Exam (Progress Note) - Constitutional Vitals: Period Temp Pulse Resp BP Sys/Alvarez Pulse Ox Last 24 Hr 97.4 F-98.7 F 79-103 13-28 109-140/74-97 80-100 Exam: She is alert and responsive in no acute distress at present. Upper airway is notable for class IV Mallampati exam. Chest with symmetrical breath sounds without significant wheeze or rhonchi. Cardiac exam reveals a regular rhythm without murmur or gallop. Abdomen soft nontender. Neurologically, she is grossly intact. She moves all extremities with good strength. Her extremities notably have less edema. Results - Labs CBC & BMP: 03/08/17 08:36 03/09/17 08:14 Lab Results: I have reviewed the past 24 hour labs
[2017-03-09] MEDS: HYDROmorphone 2 MG/1 ML VIAL IV PRN ×3 (13:05→22:33)
--- NOTE | 2017-03-09 16:20 | Hospitalist Progress Note ---
Assessment and Plan (1) Acute and chronic respiratory failure ([id number]) Status: Acute Assessment and plan: cont duonebs and steroids, no diuretics right now Current Visit: Yes (2) Theophylline toxicity Status: Acute Assessment and plan: hold manish Current Visit: Yes (3) Hypertension Status: Chronic Assessment and plan: controlled Current Visit: Yes (4) Obstructive sleep apnea syndrome Status: Chronic Assessment and plan: Patient has central sleep apnea. Patient will need an ASV therapy Current Visit: Yes (5) Acute exacerbation of chronic obstructive pulmonary disease (COPD) Status: Acute Assessment and plan: improving with duonebs and steroids Current Visit: No (6) Diabetes mellitus Status: Chronic Assessment and plan: hgb a1c 6.5, BS stable Current Visit: No Qualifiers: Diabetes mellitus type: type 2 Diabetes mellitus complication detail: with chronic kidney disease Chronic kidney disease stage: stage 3 (moderate) (7) Bilateral pulmonary infiltrates on chest x-ray Status: Acute Assessment and plan: Initial chest x-ray read as congestive heart failure. Echocardiogram shows normal EF of 60% and mainly right-sided heart failure. Patient has moderate pulmonary hypertension tricuspid regurg. Zosyn IV. Current Visit: Yes (8) NSTEMI (non-ST elevated myocardial infarction) Status: Acute Assessment and plan: Dr. Parra feels she needs a cardiac eval LHC+RHC. Assess reversibility of PHTN, r /o CAD as cause for elev cardiac enzymes -DVT. Swithc LMWH to Eliquis. Although she does not seem to have a PE, I would suggest lifelong anticoagulation as she already has significant RV dysfunction Current Visit: Yes (9) Pulmonary HTN Status: Acute Assessment and plan: may give false elevated BNP, patient will have to see specialist at [facility] Current Visit: Yes (10) Acute on chronic renal failure Status: Acute Assessment and plan: acute tubular necrosis on chronic renal disease due to diabetes and htn, UO improved with IVF. Will HL, allow to drink fluids. No lasix for now Current Visit: Yes (11) Abdominal pain Status: Acute Assessment and plan: ct of the abdomen and pelvis shows anasarca with inflammation around the pancreatic head and mesenteric root. Lipase level is normal. Moderate anasarca but the skin thickening in the lower abdomen no evidence of cellulitis for my exam. I will have Dr. Enrique OLIVA look at her tomorrow for an assessment. Her white count has increased, will start her on Zosyn renal adjusted. Current Visit: Yes Hospitalist: Subjective Interval history: Patient is still having some discomfort in her abdomen but she is eating well. Her lipase was normal. CT of her abdomen suggests some anasarca and pancreatic edema. Spoke with Dr. Acevedo and he would not give her fluids nor give her Lasix at this time. Exam - Constitutional Vitals: Period Temp Pulse Resp BP Sys/Alvarez Pulse Ox Last 24 Hr 97.1 F-98.7 F 79-103 13-28 108-146/70-102 80-100 Exam: Heart Rate-RRR] Lungs-[clear GI-[+bs soft, diffusely tender] Ext-[some edema] Neuro [Motor 5/5], [alert and oriented times 3] psych depressed mood and affect] General [mild acute distress] Results - Labs CBC & BMP: 03/08/17 08:36 03/09/17 08:14 Lab Results: I have reviewed the past 24 hour labs
[2017-03-09] MEDS ORDERED: ERTAPENEM 1,000 MG in SODIUM CHLORIDE 0.9% 100 ML IV SCH (17:00)
[2017-03-09] MEDS: BISACODYL 5 MG TABLET PO SCH (17:25)
[2017-03-09] MEDS: PIPERACILLIN/TAZOBACTAM 3,375 MG in SODIUM CHLORIDE 0.9% 100 ML IV SCH (17:25)
--- NOTE | 2017-03-09 18:14 | General Surgery Consult Note ---
Assessment and Plan - Time spent with patient Time spent with patient: Greater than 30 minutes (1) Abdominal pain Status: Acute Assessment and plan: The etiology of her pain is not entirely clear. She does not appear to have an acute abdomen. She feels like she is constipated and this may have contributed to her pain. Findings on CT to me are not very impressive on this noncontrasted study. I think that the mild fat stranding consistent with a patient with congestive heart failure and passive congestion of the liver and portal area. I think that this certainly could be responsible for the findings on CT it could be contributing to some of her abdominal pain symptoms. I suspect that her abdominal pain is more related to medical cause rather than acute infection or obstruction. I think that treating her medically as you are doing is the best course for now. I will be here this weekend and will follow along. Certainly if there is any change then we can reevaluate. I agree with treating her for constipation. I did discuss this case with Dr. Astorga. Current Visit: Yes Qualifiers: Abdominal location: generalized Qualified Code(s): R10.84 - Generalized abdominal pain History of Present Illness Chief complaint: Abdominal pain History of present illness: Ms. Cardoso is a 61 year old female Who is admitted with exacerbation of COPD and CHF and has had complaints of vague abdominal pain since admission which she thinks is worsened in the last day or so. She describes the pain as being moderate and not really localized to one location. The pain is intermittent. Sometimes feels like cramps and feels like she needs to have a bowel movement. She states that she has not had a bowel movement in for 5 days. She has had nausea. She does not know of any aggravating or alleviating factors. She had a CT scan which suggested mild fat stranding at the head of the pancreas and portions of the duodenum. She has a normal lipase level. Home Medications Medication Instructions Recorded Confirmed Type Escitalopram [Lexapro] 20 mg PO DAILY 11/08/15 03/07/17 History Albuterol Sulfate [Ventolin HFA] 2 puff INH Q4H PRN #1 inhaler 07/13/16 Rx Metoprolol Tartrate 50 mg PO BID #60 tablet 07/13/16 03/07/17 Rx Pantoprazole Tab [Protonix Tab] 40 mg PO DAILY #30 tablet 07/13/16 03/07/17 Rx Theophylline ER Tab 300 mg PO BID W/MEALS #60 tablet 07/13/16 03/07/17 Rx Aspirin [Ecotrin] 325 mg PO DAILY 03/07/17 03/07/17 History Furosemide Tab [Lasix Tab] 40 mg PO DAILY 03/07/17 03/07/17 History Insulin Lispro [HumaLOG] See Protocol SUBCUT ACHS PRN 03/07/17 03/07/17 History LORazepam [Lorazepam] 0.5 mg PO BID PRN 03/07/17 03/07/17 History predniSONE TAB [PredniSONE] 10 mg PO DAILY 03/07/17 03/07/17 History Allergies Allergy/AdvReac Type Severity Reaction Status Date / Time No Known Allergies Allergy Verified 01/16/15 17:54 Medical,Surgical,& Family Hx - Medical History Cardio: History of: CHF (unclear diagnosis), CAD, Hypertension No history of: Cardiac Dysrhythmia, DE, Valvular Heart Disease Neurology: No history of: Cerebrovascular Accident Endocrine: History of: Diabetes Mellitus (NIDDM), Dyslipidemia No history of: Thyroid Disorder Respiratory: History of: Bronchitis, COPD, Obstructive Sleep Apnea - Surgical History Cardiac Surgeries: Sugical HX of: Cardiac Catheterization (stent times 2) Abdominal Surgeries: Patient denies: Abdominal Surgery - Social History Smoking Status: Current every day smoker Frequency of Alcohol Use: None Type of Drug Use: None - Constitutional Constitutional: Present: chills. Absent: fever(s), weight loss - Cardiovascular Cardiovascular: Present: dyspnea, dyspnea on exertion. Absent: chest pain at rest, chest pain with activity, syncope - Respiratory Respiratory: Present: cough, dyspnea, dyspnea on exertion. Absent: hemoptysis - Gastrointestinal Gastrointestinal: Present: abdominal pain, bloating, constipation, cramping, nausea. Absent: hematemesis, hematochezia, vomiting, jaundice - Genitourinary Genitourinary: Absent: hematuria - Musculoskeletal Musculoskeletal: Absent: back pain - Neurological Neurological: Absent: focal weakness, syncope - Endocrine Endocrine: Absent: polyuria Hematologic/Lymphatic: Absent: easy bruising Exam - Constitutional Vitals: Period Temp Pulse Resp BP Sys/Alvarez Pulse Ox Last 24 Hr 97.1 F-98.7 F 79-103 13-28 108-146/70-102 80-100 General appearance: no acute distress, morbidly obese - Head Head exam: Present: normocephalic - Eye Eye exam: Absent: scleral icterus - ENT Mouth exam: Present: normal voice - Neck Neck exam: Present: trachea midline. Absent: tenderness - Respiratory Respiratory exam: Present: clear to auscultation bilaterally. Absent: accessory muscle use - Cardiovascular Cardiovascular exam: Present: RRR - GI/Abdominal GI/Abdominal exam: Present: normal bowel sounds, distended (This is mild), soft. Absent: guarding, mass, tenderness, rebound - Neurological Exam Neurological exam: Present: alert, oriented X3. Absent: motor sensory deficit Speech: Present: normal - Skin Skin exam: Present: normal color Results - Labs CBC & BMP: 03/08/17 08:36 03/09/17 08:14 Lab Results: I have reviewed the past 24 hour labs - Diagnostic Findings Procedure: CT Abdomen and Pelvis: image reviewed by me, report reviewed by me
[2017-03-09] MEDS ORDERED: SODIUM POLYSTYRENE SULFATE 15 GM/60 ML BOTTLE PO ONE (21:36)
[2017-03-09] MEDS: LACTULOSE 20 GM/30 ML UDCUP PO SCH ×2 (21:38→23:00)
[2017-03-10] MEDS: ALBUTEROL/IPRATROPIUM 3 ML NEB RESP TX SCH ×6 (03:15→23:26)
[2017-03-10] MEDS: HYDROmorphone 2 MG/1 ML VIAL IV PRN ×3 (03:37→21:25)
[2017-03-10] MEDS: methylPREDNISolone SOD SUC 40 MG/1 ML VIAL IV SCH ×3 (06:11→22:15)
[2017-03-10] MEDS: PIPERACILLIN/TAZOBACTAM 3,375 MG in SODIUM CHLORIDE 0.9% 100 ML IV SCH ×2 (06:11→17:49)
[2017-03-10 06:16] LABS: Basophils % 0.1 % (0.0-0.8); Hematocrit 44.1 VOL% (35.7-47.0); Immature Granulocytes % 0.8 %; Lymphocytes # 0.5 10*3/uL (1.4-4.0); Lymphocytes % 3.6 % (21.3-54.2); Mean Corpuscular HGB Conc 31.7 GM/DL (32-36); Mean Corpuscular Hemoglobin 30 PG (27-34); Mean Corpuscular Volume 93.2 FL (87-102); Mean Platelet Volume 9.6 FL (9.6-12.0); Monocytes # 0.7 10*3/uL (0.11-0.8); Monocytes % 5.3 % (1.7-12.7); NRBC # 0.42 10*3/uL; Neutrophils # 11.2 10*3/uL (1.4-7.4); Neutrophils % 90.2 % (38.7-73.9); Platelet Count 315 T/CUMM (130-400); Red Blood Count 4.73 MC/CUMM (3.8-5.5); Red Cell Distribution Width 18.8 % (9.3-17.3); White Blood Count 12.4 T/CUMM (4-12)
[2017-03-10 06:40] LABS: Band Neutrophils 1 % (0-10); Hypochromasia 1+; Lymphocytes 8 % (20-55); Nucleated Red Blood Cells 1 (0-5); Segmented Neutrophils 87 % (50-85); Total Cells Counted 100
[2017-03-10 06:41] LABS: Acanthocytes Few; Macrocytosis Slight; Platelet Estimate Normal
[2017-03-10 06:42] LABS: Anisocytosis 1+
[2017-03-10 06:48] LABS: Magnesium 2.4 MG/DL (1.8-2.4); Osmolality,Calculated 292.1 MOS/KG (273-304); Potassium 5.2 MMOL/L (3.5-5.1)
[2017-03-10] MEDS: INSULIN LISPRO 100 UNIT/ML SUBCUT SCH ×4 (07:53→21:24)
--- NOTE | 2017-03-10 08:49 | EKG Report ---
Stationary ECG Study [facility] Test Date: 03/10/2017 8:48:31 AM Pat Name: GERDA KARMER Department: Room: 343 Gender: F Surgeon Partner: ASIA : 1955 Requested by: Collette Ruffin Order Number: [id number] Reading MD: BEENA DAVE Intervals [place] Rate: 92 P: 78 MS: 164 QRS: 264 QRSD: 89 T: 74 QT: 341 QTc: 391 Interpretive Statements SINUS RHYTHM POSSIBLE RIGHT ATRIAL ENLARGEMENT LEFT ATRIAL ENLARGEMENT Right axis deviation Poor R wave progression Electronically Signed On 03-11-17 16:46:36 CDT by BEENA DAVE [email or web address]
--- NOTE | 2017-03-10 09:41 | Nephrology Progress Note ---
Nephrology - PN: Subj Interval history: Ms. Cardoso is seen in follow-up of her acute on chronic renal impairment. Her creatinine has to 3.4 with a BUN of 71 she is on steroids. She has considerable leg edema but mostly on the right her chest is fairly clear. A chest x-ray 2 days ago demonstrated some increased lung water but this is not reflected with any shortness of breath. She is diuresing and losing weight at present and we will continue to follow Exam (PN)-Nephrology - Vital Signs Vital signs: Period Temp Pulse Resp BP Sys/Alvarez Pulse Ox Last 24 Hr 97.1 F-98.6 F 75-95 13-20 104-137/67-95 81-98 - Lab 03/10/17 05:47 03/10/17 05:47 Most recent lab results ABG pH 7.452 (7.35-7.45) H 03/08/17 03:35 ABG pCO2 45.1 MM HG (35-48) 03/08/17 03:35 ABG pO2 45.9 MM HG (80-95) L 03/08/17 03:35 ABG HCO3 30.0 MMOL/L (20-26) H 03/08/17 03:35 ABG O2 Saturation 79.6 % (95-100) L 03/08/17 03:35 Calcium 9.0 MG/DL (8.5-10.1) 03/10/17 05:47 Magnesium 2.4 MG/DL (1.8-2.4) 03/10/17 05:47
[2017-03-10] MEDS: LORazepam 0.5 MG TABLET PO PRN (09:48)
[2017-03-10] MEDS: PANTOPRAZOLE 40 MG TABLET PO SCH (09:48)
[2017-03-10] MEDS: ASPIRIN EC 81 MG TABLET PO SCH (09:48)
[2017-03-10] MEDS: ISOSORBIDE MONONITRATE 30 MG TABLET PO SCH (09:49)
[2017-03-10] MEDS: APIXABAN 5 MG TABLET PO SCH ×2 (09:49→21:24)
[2017-03-10] MEDS: LACTULOSE 20 GM/30 ML UDCUP PO SCH ×2 (09:49→20:20)
[2017-03-10] MEDS: ESCITALOPRAM 10 MG TABLET PO SCH (09:49)
[2017-03-10] MEDS: METOPROLOL TARTRATE 50 MG TABLET PO SCH ×2 (09:49→21:24)
[2017-03-10] MEDS: BISACODYL 5 MG TABLET PO SCH (09:49)
--- NOTE | 2017-03-10 11:30 | General Surgery Progress Note ---
Assessment and Plan (1) Abdominal pain Status: Acute Assessment and plan: The etiology of her pain is not entirely clear. She does not appear to have an acute abdomen. She feels like she is constipated and this may have contributed to her pain. Findings on CT to me are not very impressive on this noncontrasted study. I think that the mild fat stranding consistent with a patient with congestive heart failure and passive congestion of the liver and portal area. I think that this certainly could be responsible for the findings on CT it could be contributing to some of her abdominal pain symptoms. I suspect that her abdominal pain is more related to medical cause rather than acute infection or obstruction. I think that treating her medically as you are doing is the best course for now. I will be here this weekend and will follow along. Certainly if there is any change then we can reevaluate. I agree with treating her for constipation. I did discuss this case with Dr. Astorga. 03/10: She actually feels much better and denies any abdominal pain this morning. She states that the pain that she had before is completely resolved. She has no GI symptoms at this point. I do not think that there are any signs of an acute abdominal process at this point and will continue with conservative treatment. Current Visit: Yes Qualifiers: Abdominal location: generalized Qualified Code(s): R10.84 - Generalized abdominal pain Subjective Patient reports: Present: feels better. Absent: still having pain, nausea, vomiting Exam - Constitutional Vitals: Period Temp Pulse Resp BP Sys/Alvarez Pulse Ox Last 24 Hr 97.1 F-98.6 F 75-95 15-20 104-137/67-95 81-98 General appearance: no acute distress - GI/Abdominal GI/Abdominal exam: Present: soft. Absent: distended, tenderness, rebound Results - Labs CBC & BMP: 03/10/17 05:47 03/10/17 05:47 Lab Results: I have reviewed the past 24 hour labs
--- NOTE | 2017-03-10 13:58 | Cardiology Progress Note ---
Assessment and Plan (1) Acute respiratory failure with hypoxia and hypercapnia Status: Acute Assessment and plan: 61yF with severe COPD, VALERIE, PHTN, admitted with SOB, pulm congestion, STEPHIE. DVT. Low prob PE on VQ scan. cardiac enzyme trend showed preserved LVEF. There is significant R sided disease. -PHTN. Likely due to underlying pulm disease. Can be a candidate for vasodilators. Although she still had moderate pulmonary hypertension on echo, the presentation suggested dehydration, acute kidney injury, I suspect she has severe pulmonary hypertension at baseline. Once pulm issues and renal function improves, may pursue cardiac eval LHC+RHC. Assess reversibility of PHTN, r/o CAD as cause for elev cardiac enzymes - this may be pursue as outpatient. -HTN. BP elevated today. Increase metoprolol to 100 mg bid. -CPAP for VALERIE -DVT. Cont Eliquis. Although she does not seem to have a PE, I would suggest lifelong anticoagulation as she already has significant RV dysfunction -STEPHIE. Renal following. Gentle hydration -Pulm/sleep following Current Visit: No (2) Type 2 diabetes mellitus Status: Chronic Current Visit: No Qualifiers: Diabetes mellitus complication status: with kidney complications Diabetes mellitus complication detail: with chronic kidney disease Chronic kidney disease stage: stage 3 (moderate) (3) Acute renal failure due to tubular necrosis Status: Acute Current Visit: No (4) Hypertension Status: Chronic Current Visit: Yes (5) Diabetes mellitus Status: Chronic Current Visit: No Qualifiers: Diabetes mellitus type: type 2 Diabetes mellitus complication detail: with chronic kidney disease Chronic kidney disease stage: stage 3 (moderate) (6) COPD (chronic obstructive pulmonary disease) Status: Chronic Current Visit: Yes (7) NSTEMI (non-ST elevated myocardial infarction) Status: Acute Current Visit: Yes (8) CHF (congestive heart failure) Status: Acute Current Visit: Yes Cardiology - PN: Subj Interval history: She is feeling better. Breathing improved. Blood pressure heart rate well controlled. Still has mild edema. Exam (Progress Note) - Constitutional Vitals: Period Temp Pulse Resp BP Sys/Alvarez Pulse Ox Last 24 Hr 97.2 F-98.6 F 75-96 16-20 104-142/67-98 79-98 General appearance: normal weight, morbidly obese - Head Head exam: Present: normal inspection, normocephalic - Eye Eye exam: Absent: conjunctival injection Pupils: Absent: dilated - ENT ENT exam: Present: normal external ear exam - Neck Neck exam: Present: normal inspection - Respiratory Respiratory exam: Present: prolonged expiratory phase. Absent: wheezes - Cardiovascular Cardiovascular exam: Present: regular rate and rhythm, systolic murmur - GI/Abdominal GI/Abdominal exam: Present: normal bowel sounds, distended. Absent: guarding - Extremities Exam Extremities exam: Present: normal inspection, normal capillary refill, edema (1+ ) - Neurological Exam Neurological exam: Present: alert, oriented X3 - Psychiatric Psychiatric exam: Present: normal affect, normal mood - Skin Skin exam: Present: normal color, warm. Absent: cyanosis Result/EKG - Labs CBC & BMP: 03/10/17 05:47 03/10/17 05:47 Lab Results: I have reviewed the past 24 hour labs Labs: Laboratory Results - last 24 hr 03/09/17 03/09/17 03/10/17 16:14 21:13 05:47 WBC 12.4 H RBC 4.73 Hgb 14.0 Hct 44.1 MCV 93.2 MCH 30 MCHC 31.7 L RDW 18.8 H Plt Count 315 MPV 9.6 Neut % (Auto) 90.2 H Lymph % (Auto) 3.6 L [place] % (Auto) 5.3 Eos % (Auto) 0.0 Baso % (Auto) 0.1 Neut # (Auto) 11.2 H Lymph # (Auto) 0.5 L [place] # (Auto) 0.7 Eos # (Auto) 0.0 Baso # (Auto) 0.0 Total Counted 100 Immature Gran % 0.8 Nucleated RBC % 3.4 Immature Gran # 0.10 Segmented Neutrophils 87 H Band Neutrophils 1 Lymphocytes 8 L Monocytes 4 Nucleated RBCs 1 Nucleated RBCs # 0.42 Platelet Estimate Normal Hypochromasia 1+ Anisocytosis 1+ Macrocytosis Slight Acanthocytes (Spur) Few Sodium Potassium Chloride Carbon Dioxide Anion Gap BUN Creatinine GFR Calculation BUN/Creatinine Ratio Glucose POC Glucose 129 H 130 H Calculated Osmolality Calcium Magnesium 03/10/17 03/10/17 03/10/17 05:47 07:49 11:53 WBC RBC Hgb Hct MCV MCH MCHC RDW Plt Count MPV Neut % (Auto) Lymph % (Auto) [place] % (Auto) Eos % (Auto) Baso % (Auto) Neut # (Auto) Lymph # (Auto) [place] # (Auto) Eos # (Auto) Baso # (Auto) Total Counted Immature Gran % Nucleated RBC % Immature Gran # Segmented Neutrophils Band Neutrophils Lymphocytes Monocytes Nucleated RBCs Nucleated RBCs # Platelet Estimate Hypochromasia Anisocytosis Macrocytosis Acanthocytes (Spur) Sodium 135 L Potassium 5.2 H Chloride 95 L Carbon Dioxide 21 Anion Gap 24.2 H BUN 71 H Creatinine 3.40 H GFR Calculation 19 BUN/Creatinine Ratio 20.00 Glucose 134 H POC Glucose 138 H 144 H Calculated Osmolality 292.1 Calcium 9.0 Magnesium 2.4 - EKG EKG results: interpreted by me
[2017-03-10] MEDS ORDERED: traZODone 50 MG TABLET PO PRN (16:15)
--- NOTE | 2017-03-10 16:19 | Hospitalist Progress Note ---
Assessment and Plan (1) Acute and chronic respiratory failure ([id number]) Status: Acute Current Visit: Yes (2) Diabetes mellitus Status: Chronic Current Visit: No Qualifiers: Diabetes mellitus type: type 2 Diabetes mellitus complication detail: with chronic kidney disease Chronic kidney disease stage: stage 3 (moderate) (3) Acute on chronic renal failure Status: Acute Current Visit: Yes (4) Abdominal pain Status: Acute Current Visit: Yes Qualifiers: Abdominal location: generalized Qualified Code(s): R10.84 - Generalized abdominal pain Hospitalist: Subjective Interval history: No acute events overnight. Reports that she has been unable to sleep at night. Denies abdominal pain. Metoprolol increased by cardiology for elevated blood pressure. Exam - Constitutional Vitals: Period Temp Pulse Resp BP Sys/Alvarez Pulse Ox Last 24 Hr 97.2 F-98.6 F 75-96 17-20 104-142/67-98 79-98 General appearance: over weight - Head Head exam: Present: normocephalic, atraumatic - Eye Eye exam: Present: EOMI Pupils: Present: CLAY - ENT ENT exam: Present: normal exam - Neck Neck exam: Present: normal inspection - Respiratory Respiratory exam: Present: clear to auscultation bilaterally. Absent: rhonchi, wheezes - Cardiovascular Cardiovascular exam: Present: regular rate and rhythm - GI/Abdominal GI/Abdominal exam: Present: normal bowel sounds, soft. Absent: tenderness, rebound - Extremities Exam Extremities exam: Present: normal inspection - Back Exam Back exam: Present: normal inspection - Neurological Exam Neurological exam: Present: alert, oriented X3 - Psychiatric Psychiatric exam: Present: normal affect, normal mood - Skin Skin exam: Present: warm, intact Results - Labs CBC & BMP: 03/10/17 05:47 03/10/17 05:47
[2017-03-11] MEDS: ALBUTEROL/IPRATROPIUM 3 ML NEB RESP TX SCH ×5 (03:54→19:12)
[2017-03-11 05:55] LABS: Basophils % 0.1 % (0.0-0.8); Hemoglobin 14.3 GM/DL (12.0-16.0); Immature Granulocytes % 0.7 %; Immature Granulocytes Absolute 0.08 #; Lymphocytes # 0.3 10*3/uL (1.4-4.0); Lymphocytes % 3.1 % (21.3-54.2); Mean Corpuscular HGB Conc 31.1 GM/DL (32-36); Mean Corpuscular Hemoglobin 29 PG (27-34); Mean Corpuscular Volume 93.1 FL (87-102); Mean Platelet Volume 9.7 FL (9.6-12.0); Monocytes # 0.7 10*3/uL (0.11-0.8); Monocytes % 6.3 % (1.7-12.7); NRBC # 0.61 10*3/uL; Neutrophils # 9.9 10*3/uL (1.4-7.4); Neutrophils % 89.8 % (38.7-73.9); Platelet Count 352 T/CUMM (130-400); Red Blood Count 4.94 MC/CUMM (3.8-5.5); Red Cell Distribution Width 18.7 % (9.3-17.3)
[2017-03-11] MEDS: methylPREDNISolone SOD SUC 40 MG/1 ML VIAL IV SCH ×2 (06:09→15:04)
[2017-03-11] MEDS: PIPERACILLIN/TAZOBACTAM 3,375 MG in SODIUM CHLORIDE 0.9% 100 ML IV SCH (06:09)
[2017-03-11 06:21] LABS: Calcium 9.4 MG/DL (8.5-10.1); Magnesium 2.6 MG/DL (1.8-2.4); Potassium 4.6 MMOL/L (3.5-5.1)
[2017-03-11 06:22] LABS: Lymphocytes 8 % (20-55); Nucleated Red Blood Cells 1 (0-5); Segmented Neutrophils 87 % (50-85); Total Cells Counted 100
[2017-03-11 06:23] LABS: Platelet Estimate Normal
--- NOTE | 2017-03-11 08:00 | Cardiology Progress Note ---
Assessment and Plan (1) Acute respiratory failure with hypoxia and hypercapnia Status: Acute Assessment and plan: 61yF with severe COPD, VALERIE, PHTN, admitted with SOB, pulm congestion, STEPHIE. DVT. Low prob PE on VQ scan. cardiac enzyme trend showed preserved LVEF. There is significant R sided disease. -PHTN. Likely due to underlying pulm disease. Can be a candidate for vasodilators. Although she still had moderate pulmonary hypertension on echo, the presentation suggested dehydration, acute kidney injury, I suspect she has severe pulmonary hypertension at baseline. Once pulm issues and renal function improves, may pursue cardiac eval LHC+RHC. Assess reversibility of PHTN, r/o CAD as cause for elev cardiac enzymes - this may be pursued when acute issues resolve -HTN. Continue metoprolol 100 mg twice daily. -CPAP for VALERIE -DVT. Cont Eliquis. Although she does not seem to have a PE, I would suggest lifelong anticoagulation as she already has significant RV dysfunction -STEPHIE. Renal following. Gentle hydration -Pulm/sleep following Current Visit: No (2) Type 2 diabetes mellitus Status: Chronic Current Visit: No Qualifiers: Diabetes mellitus complication status: with kidney complications Diabetes mellitus complication detail: with chronic kidney disease Chronic kidney disease stage: stage 3 (moderate) (3) Acute renal failure due to tubular necrosis Status: Acute Current Visit: No (4) Hypertension Status: Chronic Current Visit: Yes (5) Diabetes mellitus Status: Chronic Current Visit: No Qualifiers: Diabetes mellitus type: type 2 Diabetes mellitus complication detail: with chronic kidney disease Chronic kidney disease stage: stage 3 (moderate) (6) COPD (chronic obstructive pulmonary disease) Status: Chronic Current Visit: Yes (7) NSTEMI (non-ST elevated myocardial infarction) Status: Acute Current Visit: Yes (8) CHF (congestive heart failure) Status: Acute Current Visit: Yes Cardiology - PN: Subj Interval history: She is feeling fine at rest, but did not ambulate chest. The blood pressure is borderline. Creatinine still trending up. Exam (Progress Note) - Constitutional Vitals: Period Temp Pulse Resp BP Sys/Alvarez Pulse Ox Last 24 Hr 97.2 F-98.6 F 65-103 17-25 99-142/60-98 69-98 General appearance: normal weight, morbidly obese - Head Head exam: Present: normal inspection, normocephalic - Eye Eye exam: Absent: conjunctival injection Pupils: Absent: dilated - ENT ENT exam: Present: normal external ear exam - Neck Neck exam: Present: normal inspection - Respiratory Respiratory exam: Present: prolonged expiratory phase. Absent: wheezes - Cardiovascular Cardiovascular exam: Present: regular rate and rhythm, systolic murmur - GI/Abdominal GI/Abdominal exam: Present: normal bowel sounds. Absent: distended - Extremities Exam Extremities exam: Present: normal inspection, normal capillary refill. Absent: edema - Back Exam Back exam: Present: normal inspection - Neurological Exam Neurological exam: Present: alert, oriented X3 - Psychiatric Psychiatric exam: Present: normal affect, normal mood - Skin Skin exam: Present: normal color, warm. Absent: cyanosis Result/EKG - Labs CBC & BMP: 03/11/17 05:38 03/11/17 05:38 Lab Results: I have reviewed the past 24 hour labs Labs: Laboratory Results - last 24 hr 03/10/17 03/10/17 03/10/17 11:53 16:55 20:04 WBC RBC Hgb Hct MCV MCH MCHC RDW Plt Count MPV Neut % (Auto) Lymph % (Auto) [place] % (Auto) Eos % (Auto) Baso % (Auto) Neut # (Auto) Lymph # (Auto) [place] # (Auto) Eos # (Auto) Baso # (Auto) Total Counted Immature Gran % Nucleated RBC % Immature Gran # Segmented Neutrophils Lymphocytes Monocytes Nucleated RBCs Nucleated RBCs # Platelet Estimate Macrocytosis Sodium Potassium Chloride Carbon Dioxide Anion Gap BUN Creatinine GFR Calculation BUN/Creatinine Ratio Glucose POC Glucose 144 H 144 H 209 H Calculated Osmolality Calcium Magnesium 03/11/17 03/11/17 05:38 05:38 WBC 11.0 RBC 4.94 Hgb 14.3 Hct 46.0 MCV 93.1 MCH 29 MCHC 31.1 L RDW 18.7 H Plt Count 352 MPV 9.7 Neut % (Auto) 89.8 H Lymph % (Auto) 3.1 L [place] % (Auto) 6.3 Eos % (Auto) 0.0 Baso % (Auto) 0.1 Neut # (Auto) 9.9 H Lymph # (Auto) 0.3 L [place] # (Auto) 0.7 Eos # (Auto) 0.0 Baso # (Auto) 0.0 Total Counted 100 Immature Gran % 0.7 Nucleated RBC % 5.5 Immature Gran # 0.08 Segmented Neutrophils 87 H Lymphocytes 8 L Monocytes 5 Nucleated RBCs 1 Nucleated RBCs # 0.61 Platelet Estimate Normal Macrocytosis Hatchery Manager Sodium 136 Potassium 4.6 Chloride 95 L Carbon Dioxide 26 Anion Gap 19.6 H BUN 77 H Creatinine 3.50 H GFR Calculation 19 BUN/Creatinine Ratio 22.00 H Glucose 153 H POC Glucose Calculated Osmolality 297.0 Calcium 9.4 Magnesium 2.6 H - EKG EKG results: interpreted by me
[2017-03-11] MEDS: INSULIN LISPRO 100 UNIT/ML SUBCUT SCH ×2 (09:10→12:39)
[2017-03-11] MEDS: HYDROmorphone 2 MG/1 ML VIAL IV PRN (09:18)
[2017-03-11] MEDS: BISACODYL 5 MG TABLET PO SCH (09:28)
[2017-03-11] MEDS: LACTULOSE 20 GM/30 ML UDCUP PO SCH (09:28)
[2017-03-11] MEDS: ASPIRIN EC 81 MG TABLET PO SCH (09:28)
[2017-03-11] MEDS: APIXABAN 5 MG TABLET PO SCH (09:28)
[2017-03-11] MEDS: ISOSORBIDE MONONITRATE 30 MG TABLET PO SCH (09:29)
[2017-03-11] MEDS: METOPROLOL TARTRATE 50 MG TABLET PO SCH (09:30)
[2017-03-11] MEDS: PANTOPRAZOLE 40 MG TABLET PO SCH (09:30)
[2017-03-11] MEDS: ESCITALOPRAM 10 MG TABLET PO SCH (09:30)
--- NOTE | 2017-03-11 09:38 | Nephrology Progress Note ---
Nephrology - PN: Subj Interval history: Ms. Cardoso is seen in follow-up of her renal impairment. Creatinine is essentially stable at 3.5. Her edema is much improved. Chest is clear. She feels well and thinks she is at baseline and able to go home from a renal standpoint I think is reasonable. Exam (PN)-Nephrology - Vital Signs Vital signs: Period Temp Pulse Resp BP Sys/Alvarez Pulse Ox Last 24 Hr 97.2 F-98.4 F 65-103 - 99-142/60-98 69-98 - Lab 03/11/17 05:38 03/11/17 05:38 Most recent lab results ABG pH 7.452 (7.35-7.45) H 03/08/17 03:35 ABG pCO2 45.1 MM HG (35-48) 03/08/17 03:35 ABG pO2 45.9 MM HG (80-95) L 03/08/17 03:35 ABG HCO3 30.0 MMOL/L (20-26) H 03/08/17 03:35 ABG O2 Saturation 79.6 % (95-100) L 03/08/17 03:35 Calcium 9.4 MG/DL (8.5-10.1) 03/11/17 05:38 Magnesium 2.6 MG/DL (1.8-2.4) H 03/11/17 05:38
--- NOTE | 2017-03-11 13:25 | Discharge Summary ---
<Paloma Rueda - Last Filed: 03/11/17 13:29> Hospital Course - Hospital Course Hospital Course: Ms. Cardoso is a 61-year-old morbidly obese black female patient with a history of CAD, hypertension, type 2 diabetes, congestive heart failure, COPD, and respiratory failure who was a transfer on 03/06 from [facility]. The patient presented to the [facility] ED with complaints of worsening shortness of breath and increased swelling to her bilateral lower extremities. Patient O2 sats were decreasing the patient appeared to be congestive heart failure with an elevated troponin so she was transferred to our facility for further evaluation patient was diuresed in our ER nurses were still low therefore we were consulted to admit her to the ICU. CODE STATUS was discussed with patient she wishes to be a DNR. Cardiology, nephrology, sleep evaluated, and surgery were consulted to see the patient. Cardiology evaluated the patient. Due to the elevation in troponins , serial troponins were ordered. Although it was suspected that it was due to demand ischemia. Echo was performed. Showed significant right ventricular strain and moderate pulmonary hypertension. Metoprolol 100 mg daily CPAP was suggested for obstructive sleep apnea. Sleep medicine evaluated patient because of her COPD exacerbation and obstructive sleep apnea. Her diagnostic a AHI was 84.8. Sleep medicine follow her throughout her stay. Patient was found to be noncompliant with the use of her device per review of her ASV. Nephrology also saw patient for evaluation of acute on chronic kidney disease. Renal ultrasound was performed. Renal function is stable and edema has improved. Patient is stable and ready for discharge. She will follow-up with her pcp, Dr. Edwards in [place]. Diagnosis - Discharge Diagnosis (1) Elevated troponin Status: Chronic (2) Acute dyspnea Status: Acute (3) Congestive heart failure Status: Acute (4) Hypertension Status: Chronic (5) Obesity (BMI 30-39.9) Status: Chronic (6) Type 2 diabetes mellitus Status: Chronic Specialty Discharge - Follow Up or Referrals Follow up with: Bj Parra MD [Physician] - 1 Month Discharge Plan - Discharge Medications New Aspirin EC Tab 81 mg PO DAILY tablet Escitalopram [Lexapro] 20 mg PO DAILY tablet Isosorbide Mononitrate [Imdur] 15 mg PO DAILY #30 tablet Metoprolol Tartrate Tab [Lopressor Tab] 100 mg PO BID tablet hydrALAZINE TAB [Apresoline Tab] 50 mg PO TID #90 tablet predniSONE TAB [PredniSONE] 20 mg PO DAILY #22 tablet Apixaban [Eliquis] 5 mg PO BID #60 tablet Continue Theophylline ER Tab 300 mg PO BID W/MEALS #60 tablet Albuterol Sulfate [Ventolin HFA] 2 puff INH Q4H PRN #1 inhaler PRN Reason: Shortness Of Breath/Wheezing Pantoprazole Tab [Protonix Tab] 40 mg PO DAILY #30 tablet LORazepam [Lorazepam] 0.5 mg PO BID PRN PRN Reason: Anxiety Discontinued Escitalopram [Lexapro] 20 mg PO DAILY Metoprolol Tartrate 50 mg PO BID #60 tablet predniSONE TAB [PredniSONE] 10 mg PO DAILY Aspirin [Ecotrin] 325 mg PO DAILY No Action Furosemide Tab [Lasix Tab] 40 mg PO DAILY Insulin Lispro [HumaLOG] See Protocol SUBCUT ACHS PRN PRN Reason: Glucose Management - Follow Up or Referral Follow Up: Bj Parra MD [Physician] - 1 Month Esme De Dios MD [Physician] - 1 Month - Forms/Instructions Exam - Constitutional Vitals: Period Temp Pulse Resp BP Sys/Alvarez Pulse Ox Last 24 Hr 97.2 F-98.4 F 65-103 17-25 99-138/60-90 69-98 Discharge Results Procedures and tests throughout hospitalization: Pending Orders 03/06/17 00:46 Blood Culture Stat 03/12/17 04:00 BMP w/ Mg [Basic Metabolic Panel w/Mg] IN AM CBC [Comp Blood Count Auto Diff] IN AM Labs on day of discharge: Labs from last 24 hours 03/11/17 03/11/17 03/11/17 11:38 08:06 05:38 WBC RBC Hgb Hct MCV MCH MCHC RDW Plt Count MPV Neut % (Auto) Lymph % (Auto) [place] % (Auto) Eos % (Auto) Baso % (Auto) Neut # (Auto) Lymph # (Auto) [place] # (Auto) Eos # (Auto) Baso # (Auto) Total Counted Immature Gran % Nucleated RBC % Immature Gran # Segmented Neutrophils Lymphocytes Monocytes Nucleated RBCs Nucleated RBCs # Platelet Estimate Macrocytosis Sodium 136 Potassium 4.6 Chloride 95 L Carbon Dioxide 26 Anion Gap 19.6 H BUN 77 H Creatinine 3.50 H GFR Calculation 19 BUN/Creatinine Ratio 22.00 H Glucose 153 H POC Glucose 172 H 163 H Calculated Osmolality 297.0 Calcium 9.4 Magnesium 2.6 H 03/11/17 03/10/17 03/10/17 05:38 20:04 16:55 WBC 11.0 RBC 4.94 Hgb 14.3 Hct 46.0 MCV 93.1 MCH 29 MCHC 31.1 L RDW 18.7 H Plt Count 352 MPV 9.7 Neut % (Auto) 89.8 H Lymph % (Auto) 3.1 L [place] % (Auto) 6.3 Eos % (Auto) 0.0 Baso % (Auto) 0.1 Neut # (Auto) 9.9 H Lymph # (Auto) 0.3 L [place] # (Auto) 0.7 Eos # (Auto) 0.0 Baso # (Auto) 0.0 Total Counted 100 Immature Gran % 0.7 Nucleated RBC % 5.5 Immature Gran # 0.08 Segmented Neutrophils 87 H Lymphocytes 8 L Monocytes 5 Nucleated RBCs 1 Nucleated RBCs # 0.61 Platelet Estimate Normal Macrocytosis Restorative Rehab Aide Sodium Potassium Chloride Carbon Dioxide Anion Gap BUN Creatinine GFR Calculation BUN/Creatinine Ratio Glucose POC Glucose 209 H 144 H Calculated Osmolality Calcium Magnesium Preliminary micro results at discharge 03/06/17 00:46 Blood Culture - Preliminary Blood No growth at 3 days 03/06/17 00:19 Blood Culture - Preliminary Blood No growth at 3 days DS: Provider Date of admission: 03/07/17 02:04 Primary care physician: . No PCP Attending physician on admission: Roberto Villeda MD Consults: 03/07/17 02:08 Consult to Physician [CONS] Routine Comment: Consulting Provider: Cardiology - [facility] When should Consulting Provider be notified: In am 03/07/17 15:19 Consult to Sleep Center [CONS] Routine Reason for Sleep Center: Sleep Center Physician Consult Comment: spenser 03/08/17 06:49 Consult to Physician [CONS] Routine Comment: worsening renal function with lasix Consulting Provider: Ashok Acevedo Jr. Consult to Specialist Group: Nephrology When should Consulting Provider be notified: In am 03/09/17 21:36 Consult to Physician [CONS] Routine Comment: pancreatic edema and anasarce Consulting Provider: Mika Nunez III. When should Consulting Provider be notified: In am Discharging clinician: Paloma Rueda NP <Edgardo Wakefield - Last Filed: 03/11/17 14:52> Hospital Course - Time spent with patient Time with patient DS: Less than 30 minutes Diagnosis - Discharge Diagnosis (1) Acute and chronic respiratory failure ([id number]) Status: Resolved (2) Diabetes mellitus Status: Chronic (3) Acute on chronic renal failure Status: Resolved (4) Abdominal pain Status: Resolved Discharge Plan - Discharge Data Condition at Discharge: Stable Discharge Diet: heart healthy Activity: increase activity as tolerated Hygiene: no restrictions Weight Bearing at Discharge: weight bear as tolerated Driving: no restrictions Contact your physician if you experience:: fever over 101, pain uncontrolled by pain medications Exam - Constitutional General appearance: over weight - Head Head exam: Present: normocephalic, atraumatic - Eye Eye exam: Present: EOMI Pupils: Present: CLAY - ENT ENT exam: Present: normal exam - Neck Neck exam: Present: normal inspection - Respiratory Respiratory exam: Present: clear to auscultation bilaterally. Absent: rhonchi, wheezes - Cardiovascular Cardiovascular exam: Present: regular rate and rhythm - GI/Abdominal GI/Abdominal exam: Present: normal bowel sounds, soft. Absent: tenderness, rebound - Extremities Exam Extremities exam: Present: normal inspection - Back Exam Back exam: Present: normal inspection - Neurological Exam Neurological exam: Present: alert, oriented X3 - Psychiatric Psychiatric exam: Present: normal affect, normal mood - Skin Skin exam: Present: warm, intact
[2017-03-11 20:24] VITALS: BP 112/72
== END 2017-03-11 16:45 | disposition home or self-care (01) | DRG 280 ==
LOC: EDUNIT# → EDBD → N.ED 23:01 → N.EDINP 03-07 02:04 → SUATTDRO 03-07 02:04 → N.CC 03-07 12:09 → N.3E 03-09 18:59
PROVIDERS: ADMIT Internal Medicine; ATTEND Internal Medicine

== ENCOUNTER 2017-03-31 20:00 | Inpatient (IN) ==
[2017-03-31] MEDS ORDERED: NITROGLYCERIN 2% OINT 1 INCH/GM PACK TOP STA (20:23)
[2017-03-31] MEDS ORDERED: BUMETANIDE 1 MG/4 ML VIAL IV STA (20:23)
[2017-03-31] MEDS ORDERED: BUMETANIDE 1 MG/4 ML VIAL ONE (20:24)
[2017-03-31] MEDS ORDERED: NITROGLYCERIN 2% OINT 1 INCH/GM PACK TOP ONE (20:24)
--- NOTE | 2017-03-31 20:38 | Emergency Department Note ---
Lurdes Guillen Emily, am scribing for, and in the presence of, Froylan Blackburn MD 20: 30. Alexey Guillen Robert M, MD, personally performed the services described in this documentation, ascribed by Lissette Chatman in my presence, and it is both accurate and complete . Arrival - Arrival Chief Complaint: Extremity Problem Stated Complaint: swelling to bilateral feet ED Nursing Triage Note: Patient to room via ems. Patient was transfered from [facility] for CHF. Patient went to [facility] today for leg swelling and pain. Patient has 4+ pitting edema to bilateral legs extending up into her ABD. Patient is SOB at time of triage but states it is normal. Patient is on 4L of oxygen at home. Patient has had 40mg of Lasix IV with very little urine output. Mode of Arrival: Stretcher Limitations: No Limitations Source: Patient - History of Present Illness HPI Narrative: Pt is a 61 y/o female who was transferred from [facility] for further evaluation of CHF, in which has severe bilateral, pedal edema and had SOB then. 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 Pt c/o painful to stand or walk on feet due to fluid, CORNELIUS, but denies fever or SOB in ED now. Pt is 82 sat on room air in ED. Pt was admitted on March 11, 2017, for fluid overload and was having chest pain then. Pt uses 4L of O2 at home. Onset (ago): day(s) Consistency: constant Severity: moderate, severe Severity scale (1-10): 9 Quality: aching, fullness Allergies/Adverse Reactions: Allergies Allergy/AdvReac Type Severity Reaction Status Date / Time No Known Allergies Allergy Verified 03/31/17 20:17 Home Medications: Home Medications Medication Instructions Recorded Confirmed Type Pantoprazole Tab [Protonix Tab] 40 mg PO DAILY #30 tablet 07/13/16 03/31/17 Rx Furosemide Tab [Lasix Tab] 40 mg PO BID 03/07/17 03/31/17 History Insulin Lispro [HumaLOG] See Protocol SUBCUT ACHS PRN 03/07/17 03/31/17 History LORazepam [Lorazepam] 0.5 mg PO BID PRN 03/07/17 03/31/17 History Aspirin EC Tab 81 mg PO DAILY tablet 03/11/17 03/31/17 Rx Escitalopram [Lexapro] 20 mg PO DAILY tablet 03/11/17 03/31/17 Rx Isosorbide Mononitrate [Imdur] 15 mg PO DAILY #30 tablet 03/11/17 03/31/17 Rx Metoprolol Tartrate Tab [Lopressor 100 mg PO BID tablet 03/11/17 03/31/17 Rx Tab] hydrALAZINE TAB [Apresoline Tab] 50 mg PO TID #90 tablet 03/11/17 03/31/17 Rx predniSONE TAB [PredniSONE] 20 mg PO DAILY #22 tablet 03/11/17 03/31/17 Rx Ascorbic Acid [Vitamin C] 500 mg PO DAILY 03/31/17 03/31/17 History Hydrocodone/Acetaminophen 1 each PO BID PRN 03/31/17 03/31/17 History [Hydrocodon-Acetaminophn 10-325] Rivaroxaban [Xarelto] 10 mg PO DAILY 03/31/17 03/31/17 History Review of System - Review of System 12 point system: reviewed and no additional remarkable complaints except as stated - Review of System Constitutional: Absent: chills, fever Respiratory: Present: respiratory distress (now resolved) Cardiovascular: Present: dyspnea on exertion, edema (severe, bilaterally in lower extremities). Absent: chest pain Gastrointestinal: Absent: abdominal pain, nausea, vomiting Musculoskeletal: Absent: arm pain, back pain Skin: Absent: rash Neurological: Present: abnormal gait (painful to walk). Absent: headache Psychiatric: Absent: anxiety Medical,Surgical,& Family Hx - Medical History Cardio: History of: CHF (unclear diagnosis), CAD, Hypertension Endocrine: History of: Diabetes Mellitus (NIDDM), Dyslipidemia No history of: Thyroid Disorder Respiratory: History of: Bronchitis, COPD, Obstructive Sleep Apnea - Surgical History Cardiac Surgeries: Sugical HX of: Cardiac Catheterization (stent times 2) Abdominal Surgeries: Patient denies: Abdominal Surgery - Family History Family History: noncontributory - Social History Smoking Status: Current every day smoker Frequency of Alcohol Use: None Type of Drug Use: None Functional capacity: independent ambulation Exam Vital Signs: Vital Signs Temperature 97.8 F 03/31/17 20:00 Pulse Rate 81 03/31/17 20:38 Respiratory Rate 13 03/31/17 20:38 Blood Pressure 144/111 03/31/17 20:38 O2 Sat by Pulse Oximetry 90 L 03/31/17 20:38 - General General appearance: alert, in no apparent distress - Head Head exam: Present: atraumatic, normocephalic - Eye Eye exam: Present: PERRL, EOMI - ENT ENT exam: Present: mucous membranes moist. Absent: mucous membranes dry - Neck Neck exam: Present: full ROM. Absent: tenderness - Chest Chest inspection: Present: symmetric chest wall rise. Absent: tenderness - Respiratory Respiratory exam: Present: rales (bilateral). Absent: normal lung sounds bilaterally, accessory muscle use - Cardiovascular Cardiovascular exam: Present: regular rate, normal rhythm, normal heart sounds - Abdominal Exam Abdominal exam: Present: soft. Absent: distention, tenderness, guarding, rebound - Extremities Exam Extremities exam: Present: full ROM, tenderness (to right foot on palpation), pedal edema (+4 pitting edema, bilaterally in lower extremities) - Neurological Exam Neurological exam: Present: alert, oriented X3, CN II-XII intact. Absent: motor sensory deficit - Psychiatric Psychiatric exam: Present: normal affect, normal mood - Skin Skin exam: Present: warm, dry Course - Consultations Consultation #1: Dr. Evans will admit the patient to the hospitalist service. Time: 20:36 Results - Labs Lab Results: I have reviewed the patients labs (I have reviewed labs from [facility].) Labs: Total Creatine Kinase 45 U/L (26-192) 03/31/17 20:38 CK-MB (CK-2) 7.8 NG/ML (0.5-3.6) H 03/31/17 20:38 CK and CKMB Interp 17.3 % 03/31/17 20:38 Troponin I 0.463 NG/ML (0.00-0.045) H 03/31/17 20:38 B-Natriuretic Peptide 4386 PG/ML (2-100) H 03/31/17 20:38 Disposition Clinical Impression: CHF (congestive heart failure), Hypoxia, Hypertension, Diabetes mellitus Case discussed with: patient Disposition: Still a Patient Condition: Stable Time of Disposition: 20:37
[2017-03-31 21:03] LABS: CKMB % 17.3 %; Troponin I Only 0.463 NG/ML (0.00-0.045)
--- NOTE | 2017-03-31 21:53 | Hospitalist History & Physical ---
Assessment and Plan (1) Right ventricular systolic dysfunction Status: Acute Assessment and plan: This is likely secondary to pulmonary hypertension which is a result of long- standing sleep apnea. There may be other causes additive or synergistic to that. Current Visit: Yes (2) Leg edema Status: Acute Assessment and plan: This is a result of right heart failure. Fluid overload cannot be supplemented. Will draw chemistries to verify her sodium level. BNP is elevated to 4386 here. Troponin was 0.463 troponins will be drawn. CK-MB of 7.8. If serial enzymes trend up cardiology will be involved. My opinion that this could be secondary to vascular congestion over diastolic CHF. The patient has a right heart systolic failure Current Visit: Yes (3) Hypoxia Status: Acute Assessment and plan: Patient has acute respiratory failure with hypoxia at this point is responding to 4 L/min of nasal cannula oxygen. I suspect an element of pulmonary hypertension and Aa shunting is compounding this. Current Visit: No (4) Pulmonary HTN Status: Acute Assessment and plan: Patient does have obstructive sleep apnea on CPAP. Compliance with its use is not very clear to me at this point. Is here without her machine that needs brought to the hospital as soon as possible. Claims his number to bring it. As mentioned above pulmonary consultation will be effected. Pulmonology should assist us on this issue Current Visit: No (5) Obstructive sleep apnea syndrome Status: Chronic Assessment and plan: Patient's family will need to bring his CPAP to the hospital [facility]. She will be admitted to telemetry for close observation. Obtain pulmonary consultation on this patient. Current Visit: No History of Present Illness Chief complaint: Shortness of breath cough bilateral leg swelling and pain History of present illness: Ms. Cardoso is a 61 year old female who was transferred from [facility] for further evaluation of CHF, in which has severe bilateral, pedal edema and had SOB then. 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 Pt c/o painful to stand or walk on feet due to fluid, CORNELIUS, but denies fever or SOB in ED now. Pt is 82 sat on room air in ED. Pt was admitted on March 11, 2017, for fluid overload and was having chest pain then. Pt uses 4L of O2 at home. Patient has been admitted to this hospital multiple times the last one was in February. Still it is similar circumstances. An echocardiogram done in February does suggest congestive heart failure with with preserved left ventricular function however there is significant right ventricular dysfunction the patient who also has obstructive sleep apnea and pulmonary hypertension. Patient is on CPAP at home she does not know what the pressures are on machine. She said there is no broken bring it here today. This patient is known to have obstructive sleep apnea for a long time and as mentioned above with right heart failure. Needs to be on the CPAP machine. I have reviewed notes for over a recent admission there is no mention of home-based to CPAP. At one point she was intubated and did use the ventilator CPAP prior to extubation. Home Medications Medication Instructions Recorded Confirmed Type Pantoprazole Tab [Protonix Tab] 40 mg PO DAILY #30 tablet 07/13/16 03/31/17 Rx Furosemide Tab [Lasix Tab] 40 mg PO BID 03/07/17 03/31/17 History Insulin Lispro [HumaLOG] See Protocol SUBCUT ACHS PRN 03/07/17 03/31/17 History LORazepam [Lorazepam] 0.5 mg PO BID PRN 03/07/17 03/31/17 History Aspirin EC Tab 81 mg PO DAILY tablet 03/11/17 03/31/17 Rx Escitalopram [Lexapro] 20 mg PO DAILY tablet 03/11/17 03/31/17 Rx Isosorbide Mononitrate [Imdur] 15 mg PO DAILY #30 tablet 03/11/17 03/31/17 Rx Metoprolol Tartrate Tab [Lopressor 100 mg PO BID tablet 03/11/17 03/31/17 Rx Tab] hydrALAZINE TAB [Apresoline Tab] 50 mg PO TID #90 tablet 03/11/17 03/31/17 Rx predniSONE TAB [PredniSONE] 20 mg PO DAILY #22 tablet 03/11/17 03/31/17 Rx Ascorbic Acid [Vitamin C] 500 mg PO DAILY 03/31/17 03/31/17 History Hydrocodone/Acetaminophen 1 each PO BID PRN 03/31/17 03/31/17 History [Hydrocodon-Acetaminophn 10-325] Rivaroxaban [Xarelto] 10 mg PO DAILY 03/31/17 03/31/17 History Allergies Allergy/AdvReac Type Severity Reaction Status Date / Time No Known Allergies Allergy Verified 03/31/17 20:17 Medical,Surgical,& Family Hx - Medical History Cardio: History of: CHF (unclear diagnosis), CAD, Hypertension Endocrine: History of: Diabetes Mellitus (NIDDM), Dyslipidemia No history of: Thyroid Disorder Respiratory: History of: Bronchitis, COPD, Obstructive Sleep Apnea - Surgical History Cardiac Surgeries: Sugical HX of: Cardiac Catheterization (stent times 2) Abdominal Surgeries: Patient denies: Abdominal Surgery - Social History Smoking Status: Current every day smoker Frequency of Alcohol Use: None Type of Drug Use: None Review of systems: 12 point system assessment for review of system was done. What stands out is the chief complaint history of presenting illness. She is complaining of pain in the legs which are quite for about 3+ pitting edema. Mild weepage of serous material is noted below the knees especially on the left side. The ends of stasis dermatitis is noted. Patient is quite hypoxic to 82% while in the emergency room here now been on 4 L/min nasal cannula. I am not sure if she has COPD with CO2 retention. I will order arterial blood gas. Exam - Constitutional Vitals: Period Temp Pulse Resp BP Sys/Alvarez Pulse Ox Last 24 Hr 97.7 F-97.8 F 81-93 13-20 137-144/107-111 82-90 General appearance: morbidly obese - Head Head exam: Present: normocephalic, atraumatic - Eye Eye exam: Present: EOMI Pupils: Present: CLAY - ENT ENT exam: Present: normal exam, normal oropharynx, other (Nasal spray difficult to visualize posterior frontal) - Neck Neck exam: Present: other (Supple midline trachea presence of bilateral JVD no hepatojugular reflex) - Respiratory Respiratory exam: Present: other (Bilateral rales admixed end expiratory wheezing no stridor no pleural rub) - Cardiovascular Cardiovascular exam: Present: regular rate and rhythm - GI/Abdominal GI/Abdominal exam: Present: normal bowel sounds, soft - Extremities Exam Extremities exam: Present: other (Generalized weakness swollen legs no focal neuro-muscular deficits) - Neurological Exam Neurological exam: Present: alert, oriented X3, CN II-XII intact - Psychiatric Psychiatric exam: Present: normal affect, normal mood - Skin Skin exam: Present: normal color, warm Results - Labs Lab Results: I have reviewed the past 24 hour labs (No labs have been drawn here. I did not get any lab reports from [facility] either. See an EKG from [facility] that did have poor poor progression of anterior forces were suggestive of an anterolateral infarct age indeterminant troponin is not elevated here. He reviewed the echocardiogram from last February which reveals congestive heart failure with preserved left ventricular function (diastolic congestive heart failure patient also had the right ventricular failure with severely reduced left ventricular systolic function and pulmonary hypertension. There was tricuspid regurgitation.)
[2017-03-31] MEDS ORDERED: LORazepam 0.5 MG TABLET PO PRN (22:15)
[2017-03-31] MEDS ORDERED: INSULIN LISPRO 100 UNIT/ML SUBCUT PRN (22:15)
[2017-03-31] MEDS ORDERED: ALBUTEROL/IPRATROPIUM 3 ML NEB RESP TX PRN (22:17)
[2017-04-01] MEDS: NITROGLYCERIN 2% OINT 1 INCH/GM PACK TOP SCH ×4 (00:19→18:13)
[2017-04-01 00:32] LABS: Troponin I Only 0.436 NG/ML (0.00-0.045)
[2017-04-01] MEDS: ALBUTEROL/IPRATROPIUM 3 ML NEB RESP TX SCH ×4 (00:47→20:24)
[2017-04-01 04:24] LABS: ABG Base Excess 5.3 MMOL/L (-2.5-2.5); ABG Oxygen Saturation 90.1 % (95-100); ABG PCO2 50.2 MM HG (35-48); ABG PH 7.403 (7.35-7.45); ABG PO2 62.6 MM HG (80-95); ABG TCO2 27.4 MMOL/L (23-27)
[2017-04-01 06:11] LABS: ABG Base Excess 5.6 MMOL/L (-2.5-2.5); ABG HCO3 31.8 MMOL/L (20-26); ABG Oxygen Saturation 95.3 % (95-100); ABG PCO2 52.7 MM HG (35-48); ABG PH 7.398 (7.35-7.45); ABG PO2 78.9 MM HG (80-95); ABG TCO2 33.4 MMOL/L (23-27); Allen Test Positive; Pt O2 Delivery Device Venturi Mask
[2017-04-01] MEDS: BUDESONIDE 0.5 MG/2 ML NEB RESP TX SCH ×2 (07:30→20:24)
--- NOTE | 2017-04-01 07:34 | XRay Report ---
XR chest 1V portable Indication: Respiratory failure. Chest one view: Comparison yesterday. Cardiomegaly, central pulmonary vascular congestion with enlarged hilar structures, interstitial edema of the peripheral lungs, and opacities at both lung bases are stable. No new infiltrates are identified. Impression: No change with continued CHF. PROCEDURE INTERPRETED AT [facility] DEPARTMENT OF RADIOLOGY Final Report Signed by: Roberto Wolf M.D.
[2017-04-01] MEDS ORDERED: DEXTROSE 50% 25 GM/50 ML VIAL IV PRN (07:47)
[2017-04-01] MEDS ORDERED: GLUCAGON 1 MG VIAL IM PRN (07:47)
--- NOTE | 2017-04-01 08:07 | EKG Report ---
Stationary ECG Study [facility] Test Date: 04/01/2017 8:06:40 AM Pat Name: GERDA KRAMER Department: Room: 127 Gender: F Apple Checker: ASIA : 1955 Requested by: Chintan Evans Order Number: [id number] Reading MD: ALVINO FERNANDEZ Intervals [place] Rate: 85 P: 83 [place]: 172 QRS: 265 QRSD: 80 T: 84 QT: 360 QTc: 402 Interpretive Statements SINUS RHYTHM WITH OCCASIONAL SUPRAVENTRICULAR PREMATURE COMPLEXES BIATRIAL ABNORMALITY INFERIOR MYOCARDIAL INFARCTION, PROBABLY OLD Electronically Signed On 04-02-17 07:15:58 CDT by ALVINO FERNANDEZ [email or web address]
[2017-04-01] MEDS ORDERED: RIVAROXABAN 10 MG TABLET PO SCH (09:00)
[2017-04-01] MEDS: ASPIRIN EC 81 MG TABLET PO SCH (09:00)
[2017-04-01] MEDS ORDERED: METOPROLOL TARTRATE 50 MG TABLET PO SCH (09:00)
[2017-04-01] MEDS ORDERED: FUROSEMIDE 40 MG/4 ML VIAL IV SCH (09:00)
[2017-04-01] MEDS: ESCITALOPRAM 10 MG TABLET PO SCH (09:01)
[2017-04-01] MEDS: PANTOPRAZOLE 40 MG TABLET PO SCH (09:02)
[2017-04-01] MEDS: ASCORBIC ACID 500 MG TABLET PO SCH (09:03)
[2017-04-01] MEDS: LORazepam 1 MG TABLET PO PRN (09:04)
[2017-04-01 09:39] LABS: Calcium 9.3 MG/DL (8.5-10.1); Magnesium 1.9 MG/DL (1.8-2.4); Osmolality,Calculated 309.4 MOS/KG (273-304); Potassium 3.8 MMOL/L (3.5-5.1)
--- NOTE | 2017-04-01 11:03 | Hospitalist Progress Note ---
Assessment and Plan (1) Acute respiratory failure with hypoxia and hypercapnia Status: Acute Assessment and plan: 1)acute resp failure- she has pulmonary edema on CXR and decreased breath sounds. Increase lasix to 40 IV BID after dose of 80mg this morning and add solumedrol. On asa, hydralazine and restart home imdur. Echo last month showed right heart failure and EF 60%, moderate pulmonary HTN, diagnosed with diastolic dysfunction also. consult cardiology- note last month said she needs r and L heart cath. She remains hypoxic though she was tolerating low sats while she was eating she should continue to use BIPAP for now. She may need Dobutamine also. She had sig lower extremity edema when she went home she says that only got worse. 2)COPD- on chronic steroids at home. use nebs too. and add levaquin to cover for COPD exacerbation. 3)CKD- creatinine better today than at discharge last time, probably because she is wet. I anticipate that it will rise as she is diuresed 4)DM- glucose controlled. 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 8)question of home CPAP raised- find out if sleep lab has seen her tomorrow and consult if they have not. Current Visit: No (2) Acute exacerbation of chronic obstructive pulmonary disease (COPD) Status: Acute Current Visit: No (3) Coronary artery disease Status: Acute Current Visit: No (4) Type 2 diabetes mellitus Status: Chronic Current Visit: No Qualifiers: Diabetes mellitus complication status: with kidney complications Diabetes mellitus complication detail: with chronic kidney disease Chronic kidney disease stage: stage 3 (moderate) (5) Obstructive sleep apnea syndrome Status: Chronic Current Visit: No (6) Obesity (BMI 30-39.9) Status: Chronic Current Visit: No (7) Pulmonary HTN Status: Acute Current Visit: No (8) Acute on chronic diastolic (congestive) heart failure Status: Acute Current Visit: Yes (9) Right ventricular systolic dysfunction Status: Acute Current Visit: Yes Hospitalist: Subjective Interval history: Mrs Cardoso feels much better today. However when her BIPAP came off for her to eat her sats dropped to the low 80s on 4L NC. She takes prednisone every day at home which was not continued here, so I will start her on some solumedrol that can be tapered quickly as she improves. She is having breakthrough pain inher back which is chronic so I have increased the frequency of her norco. Exam - Constitutional Vitals: Period Temp Pulse Resp BP Sys/Alvarez Pulse Ox Last 24 Hr 97.7 F-98.0 F 19-132 12-29 103-150/68-111 82-100 General appearance: no acute distress, over weight - Head Head exam: Present: normocephalic, atraumatic - Eye Eye exam: Present: EOMI. Absent: scleral icterus Pupils: Present: CLAY - Respiratory Respiratory exam: Present: decreased breath sounds (at bases bilaterally, no rales.). Absent: wheezes - Cardiovascular Cardiovascular exam: Present: regular rate and rhythm - GI/Abdominal GI/Abdominal exam: Present: normal bowel sounds, soft. Absent: tenderness - Extremities Exam Extremities exam: Present: edema (large pitting edema in her lower extremities.) - Neurological Exam Neurological exam: Present: alert, oriented X3 - Psychiatric Psychiatric exam: Present: normal affect, normal mood - Skin Skin exam: Present: warm, dry Results - Labs CBC & BMP: 04/01/17 08:57 Lab Results: I have reviewed the past 24 hour labs
[2017-04-01] MEDS ORDERED: FUROSEMIDE 40 MG/4 ML VIAL IV ONE (11:08)
[2017-04-01] MEDS: methylPREDNISolone SOD SUC 40 MG/1 ML VIAL IV SCH (11:10)
--- NOTE | 2017-04-01 16:03 | Cardiology Consult Note ---
Assessment and Plan (1) Acute on chronic diastolic (congestive) heart failure Status: Acute Assessment and plan: 1. 61-year-old BMI 37.5 BF smoker with hypertension, diabetes, VALERIE ( noncompliant with CPAP), reported severe COPD, with numerous admissions in the last 2 years most recently 4 weeks ago with respiratory distress likely due to diastolic heart failure as well as right-sided heart failure, with acute on chronic renal failure, and troponin rise and fall to greater than 5 possibly related to demand ischemia/necrosis. She now presents with gradual worsening of her severe lower extremity edema "just got so bad I could not take anymore". 2. Questionable history of remote PE and DVT; she did have a saphenous vein thrombosis noted last month, and is on low-dose Xarelto [address] Parra felt she would benefit from left and right heart catheterization and possible pulmonary hypertension evaluation last month (renal function precluded that); her creatinine is 1.9 which seems to be about baseline for her. 3. She has right ventricular enlargement, with probable anasarca (CT supports this); right ventricular failure may be related to COPD and/or untreated VALERIE, with history of questionable remote PE questionable of note her VQ scan last month was low probability. 4. Hold Xarelto for possible heart catheterization this week. 5. Obviously weight loss, using CPAP, and abstaining from smoking will be important for her prognosis per 6. Judicious diuresis is reasonable given her lower extremity discomfort; ambulation and eventually we could try some large support hose question Current Visit: Yes (2) Right ventricular systolic dysfunction Status: Acute Current Visit: Yes (3) Leg edema Status: Acute Current Visit: Yes History of Present Illness - Consult Narrative History of present illness: Ms. Cardoso is a 61 year old female who is had many admissions in the last 2 years including 4 weeks ago when she had respiratory distress and acute on chronic renal failure and heart failure. She had rise and fall troponin to over 5 which of the time was felt to be more likely from demand ischemia. She had low probability VQ scan was found to have a superficial saphenous vein thrombosis. She is on Xarelto 10 for uncertain reasons, possibly because of the thrombus? The chart notes old PE but she has no memory of this and I cannot find any documentation of it. Remote records says she had a heart catheterization 2004 with no stents from heart attack. I have no records of that here. She has had dyspnea on exertion for weeks which has not changed. She has had severe low semi-swelling which gradually worsened to the point where her "legs hurt so bad I had to come in". This is definite her main complaint. She is not having chest discomfort presyncope or syncope now. Dr. Ulrich saw her last month recommended at some point she had left and right heart cath and possibly evaluation for pulmonary hypertension. CC: Lauren Jolley MD - Home Medications and Allergies Home Medications: Home Medications Medication Instructions Recorded Confirmed Type Pantoprazole Tab [Protonix Tab] 40 mg PO DAILY #30 tablet 07/13/16 03/31/17 Rx Furosemide Tab [Lasix Tab] 40 mg PO BID 03/07/17 03/31/17 History Insulin Lispro [HumaLOG] See Protocol SUBCUT ACHS PRN 03/07/17 03/31/17 History LORazepam [Lorazepam] 0.5 mg PO BID PRN 03/07/17 03/31/17 History Aspirin EC Tab 81 mg PO DAILY tablet 03/11/17 03/31/17 Rx Escitalopram [Lexapro] 20 mg PO DAILY tablet 03/11/17 03/31/17 Rx Isosorbide Mononitrate [Imdur] 15 mg PO DAILY #30 tablet 03/11/17 03/31/17 Rx Metoprolol Tartrate Tab [Lopressor 100 mg PO BID tablet 03/11/17 03/31/17 Rx Tab] hydrALAZINE TAB [Apresoline Tab] 50 mg PO TID #90 tablet 03/11/17 03/31/17 Rx predniSONE TAB [PredniSONE] 20 mg PO DAILY #22 tablet 03/11/17 03/31/17 Rx Ascorbic Acid [Vitamin C] 500 mg PO DAILY 03/31/17 03/31/17 History Hydrocodone/Acetaminophen 1 each PO BID PRN 03/31/17 03/31/17 History [Hydrocodon-Acetaminophn 10-325] Rivaroxaban [Xarelto] 10 mg PO DAILY 03/31/17 03/31/17 History Allergies/Adverse Reactions: Allergies Allergy/AdvReac Type Severity Reaction Status Date / Time No Known Allergies Allergy Verified 03/31/17 20:17 Medical,Surgical,& Family Hx - Medical History Cardio: History of: CHF (unclear diagnosis), CAD, Hypertension No history of: Cardiac Dysrhythmia, Valvular Heart Disease Psychological: History of: Depression Neurology: History of: TIA (2006) No history of: Cerebrovascular Accident HEENT: History of: Eye Problem (glasses) Endocrine: History of: Diabetes Mellitus (NIDDM), Dyslipidemia No history of: Thyroid Disorder Respiratory: History of: Bronchitis, COPD, Obstructive Sleep Apnea - Surgical History Cardiac Surgeries: Sugical HX of: Cardiac Catheterization (stent times 2) Abdominal Surgeries: Patient denies: Abdominal Surgery Reproductive Surgeries: Surgical HX of;: Tubal Ligation - Family History Family History: Reports;: Family Diabetes (mother), Family Heart Disease ( brother cardiomegaly), Family Hypertension (brother), Family Stroke (sister) Denies;: Family Anesthesia Reaction, Family Cancer, Family Hematology, Family Psychiatric Problems - Social History Smoking Status: Former smoker Frequency of Alcohol Use: None Type of Drug Use: None Physical Examination Vital Signs Temp Pulse Resp BP Pulse Ox 97.7 F 91 H 20 137/107 82 L 03/31/17 20:00 03/31/17 20:00 03/31/17 20:00 03/31/17 20:00 03/31/17 20:00 General: Present: Appears Well, No Apparent Distress HEENT: Present: Normocephaly Neck: Present: Supple Neck, JVD/HJR Cardiac: Present: Reg Rate and Rhythm. Absent: Irregularly Regular, Systolic Murmur, Diastolic Murmur Lungs: Present: Decreased Breath Sounds, Bibasilar Rales Neuro: Absent: Weakness, Essential Tremor Abdomen: Present: Soft, Non-Tender Extremities: Present: +4 Edema Result/EKG - Labs CBC & BMP: 04/01/17 08:57 Labs: Laboratory Results - last 24 hr 03/31/17 03/31/17 03/31/17 20:38 20:38 23:43 ABG pH ABG pCO2 ABG pO2 ABG HCO3 ABG Total CO2 ABG O2 Saturation ABG Base Excess FiO2 Sodium Potassium Chloride Carbon Dioxide Anion Gap BUN Creatinine GFR Calculation BUN/Creatinine Ratio Glucose POC Glucose Calculated Osmolality Calcium Magnesium Total Creatine Kinase 45 40 CK-MB (CK-2) 7.8 H 7.2 H CK and CKMB Interp 17.3 18.0 Troponin I 0.463 H 0.436 H B-Natriuretic Peptide 4386 H 04/01/17 04/01/17 04/01/17 04:15 06:00 07:05 ABG pH 7.403 7.398 ABG pCO2 50.2 H 52.7 H ABG pO2 62.6 L 78.9 L ABG HCO3 29.0 H 31.8 H ABG Total CO2 27.4 H 33.4 H ABG O2 Saturation 90.1 L 95.3 ABG Base Excess 5.3 H 5.6 H FiO2 50.00 Sodium Potassium Chloride Carbon Dioxide Anion Gap BUN Creatinine GFR Calculation BUN/Creatinine Ratio Glucose POC Glucose 127 H Calculated Osmolality Calcium Magnesium Total Creatine Kinase CK-MB (CK-2) CK and CKMB Interp Troponin I B-Natriuretic Peptide 04/01/17 04/01/17 04/01/17 08:57 08:57 11:15 ABG pH ABG pCO2 ABG pO2 ABG HCO3 ABG Total CO2 ABG O2 Saturation ABG Base Excess FiO2 Sodium 147 H Potassium 3.8 Chloride 105 Carbon Dioxide 35 H Anion Gap 10.8 BUN 61 H Creatinine 1.90 H GFR Calculation 40 BUN/Creatinine Ratio 32.00 H Glucose 118 H POC Glucose 155 H Calculated Osmolality 309.4 H Calcium 9.3 Magnesium 1.9 Total Creatine Kinase CK-MB (CK-2) CK and CKMB Interp Troponin I B-Natriuretic Peptide 3307 H
[2017-04-01] MEDS: FUROSEMIDE 40 MG/4 ML VIAL IV SCH (17:20)
[2017-04-01] MEDS: CARVEDILOL 3.125 MG TABLET PO SCH (20:20)
[2017-04-01] MEDS: ISOSORBIDE DINITRATE 20 MG TABLET PO SCH (20:20)
[2017-04-01] MEDS: INSULIN LISPRO 100 UNIT/ML SUBCUT SCH (20:21)
[2017-04-02] MEDS: NITROGLYCERIN 2% OINT 1 INCH/GM PACK TOP SCH ×3 (00:04→11:34)
[2017-04-02] MEDS: methylPREDNISolone SOD SUC 40 MG/1 ML VIAL IV SCH ×2 (00:04→11:35)
[2017-04-02] MEDS: ALBUTEROL/IPRATROPIUM 3 ML NEB RESP TX SCH ×4 (01:15→19:12)
[2017-04-02 04:33] LABS: Calcium 8.6 MG/DL (8.5-10.1); Magnesium 1.8 MG/DL (1.8-2.4); Osmolality,Calculated 306.8 MOS/KG (273-304); Potassium 4.1 MMOL/L (3.5-5.1)
[2017-04-02] MEDS: BUDESONIDE 0.5 MG/2 ML NEB RESP TX SCH ×2 (07:27→19:12)
--- NOTE | 2017-04-02 08:23 | Cardiology Progress Note ---
Assessment and Plan - Time spent with patient Time spent with patient: Greater than 30 minutes (Examination, chart review film review interview orders and discussion with patient) (1) Cor pulmonale (chronic) Status: Chronic Current Visit: Yes (2) Right heart failure due to pulmonary hypertension Status: Chronic Current Visit: Yes (3) Obesity (BMI 30-39.9) Status: Chronic Current Visit: Yes (4) Chronic renal insufficiency, stage III (moderate) Status: Chronic Current Visit: Yes (5) DVT (deep venous thrombosis) Status: Chronic Current Visit: No Qualifiers: DVT location: lower extremity Affected thrombotic vein of extremity: other lower extremity vein Chronicity: acute Laterality: right Qualified Code(s) : I82.491 - Acute embolism and thrombosis of other specified deep vein of right lower extremity (6) Type 2 diabetes mellitus Status: Chronic Current Visit: No Qualifiers: Diabetes mellitus complication status: with kidney complications Diabetes mellitus complication detail: with chronic kidney disease Chronic kidney disease stage: stage 3 (moderate) Cardiology - PN: Subj Interval history: The very pleasant chronically ill 61-year-old female recently admitted to the hospital found to have right heart failure pulmonary hypertension and acute renal failure on top of chronic renal insufficiency with ATN. The patient has a long standing history of tobacco use but has now quit since her last hospital admission she also has obstructive sleep apnea and a BMI of 37.5 with chronic respiratory failure. Her blood gases indicate that this is chronic. The patient states that she has had lower extremity edema ever since she left the hospital for the last 1 month. She states that over the last 2 weeks it has become painful and she cannot walk across the room without being severely dyspneic. She states that she is compliant with her CPAP at home. Although she denies any known renal dysfunction she has seen nephrology and her last admission and had a renal ultrasound that showed chronic renal disease was impression of nephrology that she had ATN as mechanism for acute renal insufficiency on top of her chronic renal insufficiency and renal parenchymal disease. Patient is now admitted to the CCU and cardiology been consulted for "heart failure." I reviewed her last transthoracic echo were her right ventricular systolic pressure was estimated to be at least 58 mmHg right heart dysfunction and dilation. Her ejection fraction was estimated to be 60% there was not enough data for estimation of diastolic dysfunction. Exam (Progress Note) - Constitutional Vitals: Period Temp Pulse Resp BP Sys/Alvarez Pulse Ox Last 24 Hr 96.5 F-98.7 F 76-105 12-31 83-144/41-97 85-100 General appearance: morbidly obese - Head Head exam: Present: normal inspection - Eye Eye exam: Present: other (mild proptosis) Pupils: Present: CLAY - ENT ENT exam: Present: other (ASA III/IV airway) - Neck Neck exam: Present: other - Respiratory Respiratory exam: Present: clear to auscultation bilaterally (Globally diminished breath sounds) - Cardiovascular Cardiovascular exam: Present: regular rate and rhythm (I cannot hear her tricuspid regurgitation. She has no right ventricular lift) - GI/Abdominal GI/Abdominal exam: Present: normal bowel sounds - Extremities Exam Extremities exam: Present: edema (Tender to palpation looks as though she has lost some fluid there is mild looseness to her skin) - Back Exam Back exam: Present: normal inspection - Neurological Exam Neurological exam: Present: alert, oriented X3 - Psychiatric Psychiatric exam: Present: normal affect, normal mood - Skin Skin exam: Present: normal color, warm, dry Result/EKG - Labs CBC & BMP: 04/02/17 03:58 Labs: Laboratory Results - last 24 hr 04/01/17 04/01/17 04/01/17 08:57 08:57 11:15 Sodium 147 H Potassium 3.8 Chloride 105 Carbon Dioxide 35 H Anion Gap 10.8 BUN 61 H Creatinine 1.90 H GFR Calculation 40 BUN/Creatinine Ratio 32.00 H Glucose 118 H POC Glucose 155 H Calculated Osmolality 309.4 H Calcium 9.3 Magnesium 1.9 B-Natriuretic Peptide 3307 H 04/01/17 04/01/17 04/02/17 16:19 19:21 03:58 Sodium 144 Potassium 4.1 Chloride 104 Carbon Dioxide 32 Anion Gap 12.1 BUN 64 H Creatinine 2.10 H GFR Calculation 35 BUN/Creatinine Ratio 30.00 H Glucose 147 H POC Glucose 179 H 212 H Calculated Osmolality 306.8 H Calcium 8.6 Magnesium 1.8 B-Natriuretic Peptide 04/02/17 07:26 Sodium Potassium Chloride Carbon Dioxide Anion Gap BUN Creatinine GFR Calculation BUN/Creatinine Ratio Glucose POC Glucose 166 H Calculated Osmolality Calcium Magnesium B-Natriuretic Peptide
[2017-04-02] MEDS ORDERED: ISOSORBIDE MONONITRATE 30 MG TABLET PO SCH (09:00)
[2017-04-02] MEDS: INSULIN LISPRO 100 UNIT/ML SUBCUT SCH ×3 (09:05→16:33)
[2017-04-02] MEDS: ASPIRIN EC 81 MG TABLET PO SCH (09:06)
[2017-04-02] MEDS: CARVEDILOL 3.125 MG TABLET PO SCH ×2 (09:06→21:24)
[2017-04-02] MEDS: ESCITALOPRAM 10 MG TABLET PO SCH (09:07)
[2017-04-02] MEDS: ISOSORBIDE DINITRATE 20 MG TABLET PO SCH ×3 (09:07→21:24)
[2017-04-02] MEDS: PANTOPRAZOLE 40 MG TABLET PO SCH (09:08)
[2017-04-02] MEDS: ASCORBIC ACID 500 MG TABLET PO SCH (09:08)
[2017-04-02] MEDS: FUROSEMIDE 40 MG/4 ML VIAL IV SCH ×2 (09:09→16:33)
[2017-04-02] MEDS: ENOXAPARIN 30 MG/0.3 ML SYRINGE SUBCUT SCH (09:17)
[2017-04-02 09:37] LABS: Hematocrit 44.1 VOL% (35.7-47.0); Hemoglobin 13.6 GM/DL (12.0-16.0); Immature Granulocytes % 0.6 %; Immature Granulocytes Absolute 0.05 #; Lymphocytes # 0.9 10*3/uL (1.4-4.0); Lymphocytes % 11.8 % (21.3-54.2); Mean Corpuscular HGB Conc 30.8 GM/DL (32-36); Mean Corpuscular Hemoglobin 30 PG (27-34); Mean Corpuscular Volume 95.9 FL (87-102); Mean Platelet Volume 11.4 FL (9.6-12.0); Monocytes # 0.2 10*3/uL (0.11-0.8); NRBC # 0.11 10*3/uL; Neutrophils # 6.7 10*3/uL (1.4-7.4); Neutrophils % 84.6 % (38.7-73.9); Platelet Count 233 T/CUMM (130-400)
--- NOTE | 2017-04-02 14:17 | Hospitalist Progress Note ---
Assessment and Plan (1) Acute respiratory failure with hypoxia and hypercapnia Status: Acute Assessment and plan: improving with lasix and bipap at night, need to check her home machine as she reports it is broken Current Visit: No (2) Acute exacerbation of chronic obstructive pulmonary disease (COPD) Status: Acute Assessment and plan: cont duoneb, decrease IV steroids Current Visit: No (3) Acute on chronic diastolic (congestive) heart failure Status: Acute Assessment and plan: cont lasix 40 mg IV every 12 hours, coreg bid, hydralazine. Current Visit: Yes (4) Type 2 diabetes mellitus Status: Chronic Assessment and plan: bs too high, check hgb A1c, lantus 10 units daily Current Visit: No Qualifiers: Diabetes mellitus complication status: with kidney complications Diabetes mellitus complication detail: with chronic kidney disease Chronic kidney disease stage: stage 3 (moderate) (5) Obstructive sleep apnea syndrome Status: Chronic Assessment and plan: Patient reports her machine at home is broken. I have asked her to call her son and have a bring it in so we can look at it. She says she is sleeping so much better on her BiPAP at night while she has been here Current Visit: No (6) Obesity (BMI 30-39.9) Status: Chronic Current Visit: No (7) Right heart failure due to pulmonary hypertension Status: Chronic Assessment and plan: Discussed case with Dr. Gloria. We will not proceed with a heart cath at this time due to concerns of putting her incomplete renal failure and putting her on dialysis. Right ventricular systolic dysfunctions most likely secondary to her obstructive sleep apnea. Current Visit: Yes Hospitalist: Subjective Interval history: Patient looks good down in the unit today blood pressure is adequate. We will move her up to telemetry. We have started her on DVT prophylaxis Lovenox and continue her on IV Lasix. Exam - Constitutional Vitals: Period Temp Pulse Resp BP Sys/Alvarez Pulse Ox Last 24 Hr 96.9 F-98.7 F 76-107 12-31 83-144/48-97 86-100 Exam: Heart Rate-[tachycardia] Lungs-[CTAB but diminished] GI-[+bs soft, NT] Ext-[2+ pitting edema] Neuro [Motor 5/5], [alert and oriented times 3] psych [normal mood and affect] General [no acute distress] Results - Labs CBC & BMP: 04/02/17 09:18 04/02/17 03:58 Lab Results: I have reviewed the past 24 hour labs - Diagnostic Findings Procedure: Chest x-ray: report reviewed by me (chf )
[2017-04-02] MEDS: INSULIN GLARGINE 100 UNIT/ML SUBCUT SCH (14:53)
--- NOTE | 2017-04-02 16:20 | Sleep Medicine Consult ---
Assessment and Plan (1) Obstructive sleep apnea syndrome Status: Chronic Assessment and plan: This patient does have obstructive sleep apnea with treatment emergent central sleep apnea refractory to both CPAP and BiPAP. It was controlled with ASV therapy and she did achieve compliance on follow-up as recently as January of this year. Her compliance has fallen in the past 2 months but she states that she is using it nightly now even though her machine is not turning all normally. I have asked her to get her son to bring it in so that we can check it and confirm compliance. She understands that noncompliance with her therapy can result in recurrent CHF and respiratory failure. I have asked the nurses to notify the sleep lab when her machine is available for download of compliance data. Current Visit: No History of Present Illness Chief complaint: Sleep apnea History of present illness: Ms. Cardoso is a 61 year old female known to me from previous sleep evaluation. She had been diagnosed in the past with severe obstructive sleep apnea with a diagnostic AHI of 84.8. She was refractory to CPAP and BiPAP due to treatment emergent central sleep apnea. She was converted to an ASV device and had excellent results. She was compliant with ASV when seen on 02/07/2017 but was readmitted in February of this year and seen in hospital consultation at that time. Her compliance to drop down to 36%. She was encouraged to comply with her ASV during that hospital stay and the importance of compliance for her general well-being and health was certainly stressed as well. She has been readmitted with lower extremity swelling and short of breath and did not bring her ASV device with her. She states that she has been using it nightly but that is not working as well as it used to. She states it does not turn own easily. She states that she dropped. She has contacted her son to bring her machine to her and we will have it checked when available. Again, we stressed the importance of nightly compliance due to her underlying heart disease and pulmonary hypertension. Home Medications Medication Instructions Recorded Confirmed Type Pantoprazole Tab [Protonix Tab] 40 mg PO DAILY #30 tablet 07/13/16 03/31/17 Rx Furosemide Tab [Lasix Tab] 40 mg PO BID 03/07/17 03/31/17 History Insulin Lispro [HumaLOG] See Protocol SUBCUT ACHS PRN 03/07/17 03/31/17 History LORazepam [Lorazepam] 0.5 mg PO BID PRN 03/07/17 03/31/17 History Aspirin EC Tab 81 mg PO DAILY tablet 03/11/17 03/31/17 Rx Escitalopram [Lexapro] 20 mg PO DAILY tablet 03/11/17 03/31/17 Rx Isosorbide Mononitrate [Imdur] 15 mg PO DAILY #30 tablet 03/11/17 03/31/17 Rx Metoprolol Tartrate Tab [Lopressor 100 mg PO BID tablet 03/11/17 03/31/17 Rx Tab] hydrALAZINE TAB [Apresoline Tab] 50 mg PO TID #90 tablet 03/11/17 03/31/17 Rx predniSONE TAB [PredniSONE] 20 mg PO DAILY #22 tablet 03/11/17 03/31/17 Rx Ascorbic Acid [Vitamin C] 500 mg PO DAILY 03/31/17 03/31/17 History Hydrocodone/Acetaminophen 1 each PO BID PRN 03/31/17 03/31/17 History [Hydrocodon-Acetaminophn 10-325] Rivaroxaban [Xarelto] 10 mg PO DAILY 03/31/17 03/31/17 History Allergies Allergy/AdvReac Type Severity Reaction Status Date / Time No Known Allergies Allergy Verified 03/31/17 20:17 Review of systems: Notable for lower extremity swelling Exam (Pulmonay) H&P - Constitutional Vitals: Period Temp Pulse Resp BP Sys/Alvarez Pulse Ox Last 24 Hr 96.9 F-98.7 F 76-107 12-31 83-144/48-97 86-100 Exam: She is alert and responsive in no acute distress. Pupils equal round reactive to light and accommodation. Extraocular movements intact. Oropharynx with a class IV Mallampati exam. Neck is supple without adenopathy or thyromegaly. No supraclavicular adenopathy is noted. Chest with symmetrical breath sounds without significant wheeze or rhonchi. Cardiac exam reveals a regular rhythm without murmur or gallop. Abdomen soft nontender without palpable hepatosplenomegaly or mass. Extremities with pitting edema. Neurologically, she is grossly intact. She answers all questions appropriately. She moves all extremities with good strength. Medical,Surgical,& Family Hx - Medical History Cardio: History of: CHF (unclear diagnosis), CAD, Hypertension No history of: Cardiac Dysrhythmia, Valvular Heart Disease Psychological: History of: Depression Neurology: History of: TIA (2006) No history of: Cerebrovascular Accident HEENT: History of: Eye Problem (glasses) Endocrine: History of: Diabetes Mellitus (NIDDM), Dyslipidemia No history of: Thyroid Disorder Respiratory: History of: Bronchitis, COPD, Obstructive Sleep Apnea - Surgical History Cardiac Surgeries: Sugical HX of: Cardiac Catheterization (stent times 2) Abdominal Surgeries: Patient denies: Abdominal Surgery Reproductive Surgeries: Surgical HX of;: Tubal Ligation - Family History Family History: Reports;: Family Diabetes (mother), Family Heart Disease ( brother cardiomegaly), Family Hypertension (brother), Family Stroke (sister) Denies;: Family Anesthesia Reaction, Family Cancer, Family Hematology, Family Psychiatric Problems - Social History Smoking Status: Former smoker Frequency of Alcohol Use: None Type of Drug Use: None Results - Labs CBC & BMP: 04/02/17 09:18 04/02/17 03:58 Lab Results: I have reviewed the past 24 hour labs
[2017-04-02] MEDS: LORazepam 1 MG TABLET PO PRN (22:07)
[2017-04-03] MEDS: INSULIN LISPRO 100 UNIT/ML SUBCUT SCH ×6 (00:06→21:03)
[2017-04-03] MEDS: ALBUTEROL/IPRATROPIUM 3 ML NEB RESP TX SCH ×5 (00:09→23:47)
[2017-04-03 05:18] LABS: Basophils % 0.1 % (0.0-0.8); Hematocrit 39.5 VOL% (35.7-47.0); Hemoglobin 12.4 GM/DL (12.0-16.0); Immature Granulocytes % 0.8 %; Immature Granulocytes Absolute 0.08 #; Lymphocytes # 1.2 10*3/uL (1.4-4.0); Lymphocytes % 11.5 % (21.3-54.2); Mean Corpuscular HGB Conc 31.4 GM/DL (32-36); Mean Corpuscular Hemoglobin 29 PG (27-34); Mean Corpuscular Volume 92.9 FL (87-102); Mean Platelet Volume 10.4 FL (9.6-12.0); Monocytes % 9.8 % (1.7-12.7); NRBC # 0.18 10*3/uL; Neutrophils % 77.8 % (38.7-73.9); Platelet Count 206 T/CUMM (130-400); Red Blood Count 4.25 MC/CUMM (3.8-5.5); Red Cell Distribution Width 21.1 % (9.3-17.3); White Blood Count 10.3 T/CUMM (4-12)
[2017-04-03 05:49] LABS: Magnesium 2.1 MG/DL (1.8-2.4); Potassium 4.1 MMOL/L (3.5-5.1)
[2017-04-03] MEDS: BUDESONIDE 0.5 MG/2 ML NEB RESP TX SCH ×2 (07:25→18:42)
[2017-04-03] MEDS: ISOSORBIDE DINITRATE 20 MG TABLET PO SCH ×3 (08:27→20:50)
[2017-04-03] MEDS: ESCITALOPRAM 10 MG TABLET PO SCH (08:27)
[2017-04-03] MEDS: ASPIRIN EC 81 MG TABLET PO SCH (08:27)
[2017-04-03] MEDS: PANTOPRAZOLE 40 MG TABLET PO SCH (08:27)
[2017-04-03] MEDS: FUROSEMIDE 40 MG/4 ML VIAL IV SCH ×2 (08:28→15:12)
[2017-04-03] MEDS: INSULIN GLARGINE 100 UNIT/ML SUBCUT SCH (08:28)
[2017-04-03] MEDS: CARVEDILOL 3.125 MG TABLET PO SCH ×2 (08:28→20:50)
[2017-04-03] MEDS: ASCORBIC ACID 500 MG TABLET PO SCH (08:28)
[2017-04-03] MEDS: ENOXAPARIN 30 MG/0.3 ML SYRINGE SUBCUT SCH (08:28)
[2017-04-03] MEDS: methylPREDNISolone SOD SUC 40 MG/1 ML VIAL IV SCH (08:29)
--- NOTE | 2017-04-03 10:21 | Cardiology Progress Note ---
<Collette Mccord E - Last Filed: 04/03/17 09:56> Assessment and Plan - Time spent with patient Time spent with patient: Greater than 30 minutes (1) Acute on chronic diastolic (congestive) heart failure Status: Acute Assessment and plan: SEE PLAN OF CARE LISTED BELOW Current Visit: Yes (2) Leg edema Status: Acute Assessment and plan: SEE PLAN OF CARE LISTED BELOW Current Visit: Yes (3) Chronic renal insufficiency, stage III (moderate) Status: Chronic Assessment and plan: SEE PLAN OF CARE LISTED BELOW Current Visit: Yes (4) Diabetes mellitus Status: Chronic Assessment and plan: SEE PLAN OF CARE LISTED BELOW Current Visit: Yes Qualifiers: Diabetes mellitus type: type 2 Diabetes mellitus complication detail: with chronic kidney disease Chronic kidney disease stage: stage 3 (moderate) (5) Hypertension Status: Chronic Assessment and plan: SEE PLAN OF CARE LISTED BELOW Current Visit: Yes (6) Obesity (BMI 30-39.9) Status: Chronic Assessment and plan: SEE PLAN OF CARE LISTED BELOW Current Visit: Yes (7) Pulmonary HTN Status: Chronic Assessment and plan: SEE PLAN OF CARE LISTED BELOW Current Visit: No (8) DVT (deep venous thrombosis) Status: Chronic Assessment and plan: SEE PLAN OF CARE LISTED BELOW Current Visit: No Qualifiers: DVT location: lower extremity Affected thrombotic vein of extremity: other lower extremity vein Chronicity: acute Laterality: right Qualified Code(s) : I82.491 - Acute embolism and thrombosis of other specified deep vein of right lower extremity (9) Elevated troponin Status: Chronic Assessment and plan: SEE PLAN OF CARE LISTED BELOW Current Visit: No (10) Obstructive sleep apnea syndrome Status: Chronic Assessment and plan: SEE PLAN OF CARE LISTED BELOW Current Visit: No Cardiology - PN: Subj Interval history: ISAIAS was admitted March 31, 2017 for severe shortness of breath and edema. She has been diagnosed and treated for acute on chronic congestive heart failure secondary to diastolic dysfunction, NYHA Class IV. February 2017 echocardiogram reveals: EF 60%, moderate pulmonary hypertension, moderate concentric hypertrophy. March 06, 2017 DVT study reveals right saphenous vein thrombosis for which she has been taking Xarelto. Xarelto has been held since April 01 for possible cardiac catheterization to take place during this hospital stay. However, renal insufficiency has prevented. She is currently taking Lovenox 30 mg SQ daily. Overall, patient is breathing better. She is sitting up in the bedside couch and tells me this is the first time she has been out of bed. When her legs are in a dependent position, she notes worsening of edema. Lost [address] De Dios saw patient yesterday and we appreciate his help. ASSESSMENT/PLAN: 1. ACUTE ON CHRONIC CHF - Secondary to diastolic dysfunction, NYHA Class III. 2. DVT CHRONIC - Has been on Xarelto but currently on hold. Will restart soon if no R/LHC to take place. 3. HYPERTENSION - adequately controlled on beta irina. Avoiding HEIDI inhibitor for fear of worsening renal insufficiency. 4. ELEVATED TROPONIN -felt to be related to demand ischemia. Undergoing cardiac catheterization may cause kidney failure and if at all possible, heart cath will be avoided. 5. EDEMA - multifactorial to include CHF, DVT, venous insufficiency 6. SLEEP APNEA - Dr. De Dios managing. 7. ACUTE ON CHRONIC RENAL INSUFFICIENCY - Stage III. Continue current plan of care. 8. MORBID OBESITY - dietary counseling ensues Exam (Progress Note) - Constitutional Vitals: Period Temp Pulse Resp BP Sys/Alvarez Pulse Ox Last 24 Hr 96.0 F-97.7 F 67-108 16-21 94-151/40-93 84-98 Exam: General: [Appears well with no apparent distress.] [Pleasant and cooperative. ] [Appears comfortable.] HEENT: [PERRL, normocephalic, atraumatic. Mucous membranes moist. No jaundice noted. Conjunctiva moist and clear, sclerae anicteric] Neck: Unable to assess for JVD due to habitus. No thyromegaly or lymphadenopathy noted. No carotid bruit appreciated Cardiac: [Regular rate and rhythm.] [No obvious murmur rub or gallop.] Lungs: [Scant crackles in the bases. Using oxygen intermittently. Abdomen: Soft, bowel sounds normoactive. Nontender and nondistended. No abdominal bruit or thrill noted. No masses noted. Musculoskeletal: No fluid collection. Decreased range of motion is noted. Extremities: No clubbing, cyanosis noted. [Right lower extremity 3+ edema, left lower extremity 2+ edema. Capillary refill less than 3 seconds. Skin: No unusual lesions or rashes. No skin breakdown appreciated. Neuro: Awake, alert and oriented 3. Moves all extremities well without hemiparesis or paralysis. No essential tremor is appreciated. Result/EKG - Labs CBC & BMP: 04/03/17 05:03 04/03/17 05:03 Lab Results: I have reviewed the past 24 hour labs Labs: Laboratory Results - last 24 hr 04/02/17 04/02/17 04/02/17 09:14 11:08 15:20 WBC RBC Hgb Hct MCV MCH MCHC RDW Plt Count MPV Neut % (Auto) Lymph % (Auto) [place] % (Auto) Eos % (Auto) Baso % (Auto) Neut # (Auto) Lymph # (Auto) [place] # (Auto) Eos # (Auto) Baso # (Auto) Immature Gran % Nucleated RBC % Immature Gran # Nucleated RBCs # Sodium Potassium Chloride Carbon Dioxide Anion Gap BUN Creatinine GFR Calculation BUN/Creatinine Ratio Glucose POC Glucose 206 H 217 H Hemoglobin A1c 6.3 Calculated Osmolality Calcium Magnesium 04/02/17 04/03/17 04/03/17 19:29 05:03 05:03 WBC 10.3 RBC 4.25 Hgb 12.4 Hct 39.5 MCV 92.9 MCH 29 MCHC 31.4 L RDW 21.1 H Plt Count 206 MPV 10.4 Neut % (Auto) 77.8 H Lymph % (Auto) 11.5 L [place] % (Auto) 9.8 Eos % (Auto) 0.0 Baso % (Auto) 0.1 Neut # (Auto) 8.0 H Lymph # (Auto) 1.2 L [place] # (Auto) 1.0 H Eos # (Auto) 0.0 Baso # (Auto) 0.0 Immature Gran % 0.8 Nucleated RBC % 1.7 Immature Gran # 0.08 Nucleated RBCs # 0.18 Sodium 143 Potassium 4.1 Chloride 103 Carbon Dioxide 30 Anion Gap 14.1 BUN 67 H Creatinine 2.20 H GFR Calculation 33 BUN/Creatinine Ratio 30.00 H Glucose 171 H POC Glucose 200 H Hemoglobin A1c Calculated Osmolality 307.0 H Calcium 9.0 Magnesium 2.1 04/03/17 08:06 WBC RBC Hgb Hct MCV MCH MCHC RDW Plt Count MPV Neut % (Auto) Lymph % (Auto) [place] % (Auto) Eos % (Auto) Baso % (Auto) Neut # (Auto) Lymph # (Auto) [place] # (Auto) Eos # (Auto) Baso # (Auto) Immature Gran % Nucleated RBC % Immature Gran # Nucleated RBCs # Sodium Potassium Chloride Carbon Dioxide Anion Gap BUN Creatinine GFR Calculation BUN/Creatinine Ratio Glucose POC Glucose 183 H Hemoglobin A1c Calculated Osmolality Calcium Magnesium - EKG EKG results: interpreted by me EKG shows: sinus rhythm <Rachell Champagne - Last Filed: 04/03/17 16:39> Assessment and Plan (1) Cor pulmonale (chronic) Status: Chronic Current Visit: Yes (2) Right heart failure due to pulmonary hypertension Status: Chronic Current Visit: Yes (3) Obesity (BMI 30-39.9) Status: Chronic Current Visit: Yes (4) Chronic renal insufficiency, stage III (moderate) Status: Chronic Current Visit: Yes (5) DVT (deep venous thrombosis) Status: Chronic Current Visit: No Qualifiers: DVT location: lower extremity Affected thrombotic vein of extremity: other lower extremity vein Chronicity: acute Laterality: right Qualified Code(s) : I82.491 - Acute embolism and thrombosis of other specified deep vein of right lower extremity (6) Type 2 diabetes mellitus Status: Chronic Current Visit: No Qualifiers: Diabetes mellitus complication status: with kidney complications Diabetes mellitus complication detail: with chronic kidney disease Chronic kidney disease stage: stage 3 (moderate) Cardiology - PN: Subj Interval history: I saw her with Suri and discussed with her in detail. The patient continues to have BiPAP. She has right heart failure and severe cor pulmonale. She has acute on chronic renal failure and elevated troponin that I think is due to her renal insufficiency however I do not think there is much to be added for contrast exposure to left heart cath at this time given her preserved ejection fraction with no regional wall motion and remount. Recommend that we try to continue diuresis. I discussed with Dr. Astorga will resume her anticoagulation Exam (Progress Note) - Constitutional Vitals: Period Temp Pulse Resp BP Sys/Alvarez Pulse Ox Last 24 Hr 96.0 F-97.7 F 67-108 16-21 94-160/40-93 84-98 Exam: Patient is morbidly obese she is lying on her left side head of bed up about 20 tones are distant but no abnormal cardiac tones are heard she has poor inspiratory effort she has 3+ pitting edema bilaterally slightly worse on the right. She is alert and oriented. Remainder the physical exam as above Result/EKG - Labs CBC & BMP: 04/03/17 05:03 04/03/17 05:03 Labs: Laboratory Results - last 24 hr 04/02/17 04/02/17 04/03/17 15:20 19:29 05:03 WBC 10.3 RBC 4.25 Hgb 12.4 Hct 39.5 MCV 92.9 MCH 29 MCHC 31.4 L RDW 21.1 H Plt Count 206 MPV 10.4 Neut % (Auto) 77.8 H Lymph % (Auto) 11.5 L [place] % (Auto) 9.8 Eos % (Auto) 0.0 Baso % (Auto) 0.1 Neut # (Auto) 8.0 H Lymph # (Auto) 1.2 L [place] # (Auto) 1.0 H Eos # (Auto) 0.0 Baso # (Auto) 0.0 Immature Gran % 0.8 Nucleated RBC % 1.7 Immature Gran # 0.08 Nucleated RBCs # 0.18 Sodium Potassium Chloride Carbon Dioxide Anion Gap BUN Creatinine GFR Calculation BUN/Creatinine Ratio Glucose POC Glucose 217 H 200 H Calculated Osmolality Calcium Magnesium 04/03/17 04/03/17 04/03/17 05:03 08:06 11:24 WBC RBC Hgb Hct MCV MCH MCHC RDW Plt Count MPV Neut % (Auto) Lymph % (Auto) [place] % (Auto) Eos % (Auto) Baso % (Auto) Neut # (Auto) Lymph # (Auto) [place] # (Auto) Eos # (Auto) Baso # (Auto) Immature Gran % Nucleated RBC % Immature Gran # Nucleated RBCs # Sodium 143 Potassium 4.1 Chloride 103 Carbon Dioxide 30 Anion Gap 14.1 BUN 67 H Creatinine 2.20 H GFR Calculation 33 BUN/Creatinine Ratio 30.00 H Glucose 171 H POC Glucose 183 H 171 H Calculated Osmolality 307.0 H Calcium 9.0 Magnesium 2.1 04/03/17 15:28 WBC RBC Hgb Hct MCV MCH MCHC RDW Plt Count MPV Neut % (Auto) Lymph % (Auto) [place] % (Auto) Eos % (Auto) Baso % (Auto) Neut # (Auto) Lymph # (Auto) [place] # (Auto) Eos # (Auto) Baso # (Auto) Immature Gran % Nucleated RBC % Immature Gran # Nucleated RBCs # Sodium Potassium Chloride Carbon Dioxide Anion Gap BUN Creatinine GFR Calculation BUN/Creatinine Ratio Glucose POC Glucose 171 H Calculated Osmolality Calcium Magnesium
--- NOTE | 2017-04-03 15:42 | Sleep Medicine Progress Note ---
Assessment and Plan (1) Obstructive sleep apnea syndrome Status: Chronic Assessment and plan: I have encouraged her to remain compliant with her device. She does have a modem that allows us to monitor her usage. Her machine seems to be functioning well and turns on without difficulty. Current Visit: No Sleep Medicine Subjective Interval history: Patient's downloaded compliance data was reviewed and she has been poorly compliant with her ASV device over the last few weeks. I reviewed this with her and expressed the importance of compliance. She has a device that works quite well for her complex sleep apnea. It is up to her to utilize this. I think she is catnapping a lot at during the day and I explained to her that she needs to use this every time that she sleeps. I suspect that she is napping in her chair and on her couch and getting most of her sleep in different positions or locations within her house. This is keeping her from being compliant. I stressed the potential benefit of compliance with her device with her to understanding. Exam (Progress Note) - Constitutional Vitals: Period Temp Pulse Resp BP Sys/Alvarez Pulse Ox Last 24 Hr 96.0 F-97.7 F 67-108 16-21 94-160/40-93 84-98 Exam: She is alert and responsive in no acute distress. Chest with fair air movement no significant wheeze or rhonchi. Cardiac exam reveals a regular rhythm without murmur or gallop. Abdomen soft nontender extremities without increased edema. Results - Labs CBC & BMP: 04/03/17 05:03 04/03/17 05:03 Lab Results: I have reviewed the past 24 hour labs
--- NOTE | 2017-04-03 15:58 | Hospitalist Progress Note ---
Assessment and Plan (1) Acute respiratory failure with hypoxia and hypercapnia Status: Acute Assessment and plan: cont lasix, cont cpap at night Current Visit: No (2) Acute exacerbation of chronic obstructive pulmonary disease (COPD) Status: Acute Assessment and plan: cont duoneb, decrease IV steroids Current Visit: No (3) Acute on chronic diastolic (congestive) heart failure Status: Acute Assessment and plan: cont lasix 40 mg IV every 12 hours, coreg bid, hydralazine. Current Visit: Yes (4) Type 2 diabetes mellitus Status: Chronic Assessment and plan: check hgb A1c 6.3 , lantus 10 units daily Current Visit: No Qualifiers: Diabetes mellitus complication status: with kidney complications Diabetes mellitus complication detail: with chronic kidney disease Chronic kidney disease stage: stage 3 (moderate) (5) Obstructive sleep apnea syndrome Status: Chronic Assessment and plan: cpap at night Current Visit: No (6) Obesity (BMI 30-39.9) Status: Chronic Current Visit: No (7) Right heart failure due to pulmonary hypertension Status: Chronic Assessment and plan: too high risk for heart cath as would put her into renal failure Current Visit: Yes Hospitalist: Subjective Interval history: Patient is feeling better today and would like to ambulate. PT consulted. Sleep Medicine is checking for compliance with sleep machine Exam - Constitutional Vitals: Period Temp Pulse Resp BP Sys/Alvarez Pulse Ox Last 24 Hr 96.0 F-97.7 F 67-108 16-21 94-160/40-93 84-98 Exam: Heart Rate-[tachycardia] Lungs-[clear but diminished GI-[+bs soft, NT] Ext-[2+ pitting edema] Neuro [Motor 5/5], [alert and oriented times 3] psych [normal mood and affect] General [no acute distress] Results - Labs CBC & BMP: 04/03/17 05:03 04/03/17 05:03 Lab Results: I have reviewed the past 24 hour labs
[2017-04-03] MEDS: LORazepam 1 MG TABLET PO PRN (19:00)
[2017-04-03] MEDS ORDERED: RIVAROXABAN 20 MG TABLET PO SCH (21:00)
[2017-04-04 05:34] LABS: Basophils % 0.1 % (0.0-0.8); Hematocrit 40.7 VOL% (35.7-47.0); Hemoglobin 12.7 GM/DL (12.0-16.0); Immature Granulocytes % 0.8 %; Immature Granulocytes Absolute 0.08 #; Lymphocytes # 1.3 10*3/uL (1.4-4.0); Lymphocytes % 12.7 % (21.3-54.2); Mean Corpuscular HGB Conc 31.2 GM/DL (32-36); Mean Corpuscular Hemoglobin 29 PG (27-34); Mean Corpuscular Volume 93.1 FL (87-102); Mean Platelet Volume 11.3 FL (9.6-12.0); Monocytes # 1.1 10*3/uL (0.11-0.8); Monocytes % 10.7 % (1.7-12.7); NRBC # 0.22 10*3/uL; Neutrophils # 7.9 10*3/uL (1.4-7.4); Neutrophils % 75.7 % (38.7-73.9); Platelet Count 239 T/CUMM (130-400); Red Blood Count 4.37 MC/CUMM (3.8-5.5); White Blood Count 10.5 T/CUMM (4-12)
[2017-04-04 06:20] LABS: Calcium 8.9 MG/DL (8.5-10.1); Magnesium 2.1 MG/DL (1.8-2.4); Potassium 4.3 MMOL/L (3.5-5.1)
[2017-04-04] MEDS: ALBUTEROL/IPRATROPIUM 3 ML NEB RESP TX SCH ×3 (07:38→20:14)
[2017-04-04] MEDS: BUDESONIDE 0.5 MG/2 ML NEB RESP TX SCH ×2 (08:16→20:14)
[2017-04-04] MEDS: INSULIN LISPRO 100 UNIT/ML SUBCUT SCH ×4 (08:35→20:35)
[2017-04-04] MEDS: LORazepam 1 MG TABLET PO PRN ×2 (08:48→20:36)
[2017-04-04] MEDS: ESCITALOPRAM 10 MG TABLET PO SCH (09:39)
[2017-04-04] MEDS: ASPIRIN EC 81 MG TABLET PO SCH (09:39)
[2017-04-04] MEDS: FUROSEMIDE 40 MG/4 ML VIAL IV SCH ×2 (09:40→15:24)
[2017-04-04] MEDS: ASCORBIC ACID 500 MG TABLET PO SCH (09:40)
[2017-04-04] MEDS: PANTOPRAZOLE 40 MG TABLET PO SCH (09:40)
[2017-04-04] MEDS: CARVEDILOL 3.125 MG TABLET PO SCH (09:40)
[2017-04-04] MEDS: INSULIN GLARGINE 100 UNIT/ML SUBCUT SCH (09:41)
[2017-04-04] MEDS: methylPREDNISolone SOD SUC 40 MG/1 ML VIAL IV SCH (09:41)
[2017-04-04] MEDS: ISOSORBIDE DINITRATE 20 MG TABLET PO SCH ×3 (09:57→20:36)
--- NOTE | 2017-04-04 10:21 | Cardiology Progress Note ---
<Collette Mccord E - Last Filed: 04/04/17 10:08> Assessment and Plan - Time spent with patient Time spent with patient: Greater than 30 minutes (1) Acute on chronic diastolic (congestive) heart failure Status: Acute Assessment and plan: SEE PLAN OF CARE LISTED BELOW Current Visit: Yes (2) Leg edema Status: Acute Assessment and plan: SEE PLAN OF CARE LISTED BELOW Current Visit: Yes (3) Chronic renal insufficiency, stage III (moderate) Status: Chronic Assessment and plan: SEE PLAN OF CARE LISTED BELOW Current Visit: Yes (4) Diabetes mellitus Status: Chronic Assessment and plan: SEE PLAN OF CARE LISTED BELOW Current Visit: Yes Qualifiers: Diabetes mellitus type: type 2 Diabetes mellitus complication detail: with chronic kidney disease Chronic kidney disease stage: stage 3 (moderate) (5) Hypertension Status: Chronic Assessment and plan: SEE PLAN OF CARE LISTED BELOW Current Visit: Yes (6) Obesity (BMI 30-39.9) Status: Chronic Assessment and plan: SEE PLAN OF CARE LISTED BELOW Current Visit: Yes (7) Pulmonary HTN Status: Chronic Assessment and plan: SEE PLAN OF CARE LISTED BELOW Current Visit: No (8) DVT (deep venous thrombosis) Status: Chronic Assessment and plan: SEE PLAN OF CARE LISTED BELOW Current Visit: No Qualifiers: DVT location: lower extremity Affected thrombotic vein of extremity: other lower extremity vein Chronicity: acute Laterality: right Qualified Code(s) : I82.491 - Acute embolism and thrombosis of other specified deep vein of right lower extremity (9) Elevated troponin Status: Chronic Assessment and plan: SEE PLAN OF CARE LISTED BELOW Current Visit: No (10) Obstructive sleep apnea syndrome Status: Chronic Assessment and plan: SEE PLAN OF CARE LISTED BELOW Current Visit: No (11) Tachycardia Status: Acute Assessment and plan: SEE PLAN OF CARE LISTED BELOW Current Visit: Yes Cardiology - PN: Subj Interval history: SUMMARY: ISAIAS was admitted March 31, 2017 for severe shortness of breath and edema. She has been diagnosed and treated for acute on chronic congestive heart failure secondary to diastolic dysfunction, NYHA Class IV. February 2017 echocardiogram reveals: EF 60%, moderate pulmonary hypertension, moderate concentric hypertrophy. March 06, 2017 DVT study reveals right saphenous vein thrombosis for which she has been taking Xarelto. Xarelto has been held since April 01 for possible cardiac catheterization to take place during this hospital stay. However, renal insufficiency has prevented. She is currently taking Lovenox 30 mg SQ daily. APRIL 04, 2017: Overall, patient remarks that she is breathing better. Physical therapy has been consulted to work with patient. Since admission, patient has diuresed 3 kg, having lost 1 kg over the past 24 hours. She remarks she somewhat weak but improving. Will discontinue her Raphael catheter this morning, request bedside commode. Creatinine has increased to 2.2. She is mildly tachycardic, currently continues to receive IV Lasix 40 mg twice daily. I will increase her beta-irina today, blood pressure will allow for this. Will transition from IV to oral Lasix today as she may be beginning to be volume contracted. Continue to monitor her labs daily. Slow improvement. Appreciate Dr. De Dios's assistance with her sleep disorder. Will further discuss with Dr. Farrell and await additional recommendations. ASSESSMENT/PLAN: 1. ACUTE ON CHRONIC CHF - Secondary to diastolic dysfunction, NYHA Class II. 2. DVT CHRONIC - Has been on Xarelto but currently on hold. Will restart soon if no R/LHC to take place. 3. HYPERTENSION - increasing Coreg from 3.125mg BID to 6.25mg orally BID ( additional dose 3.125mg now). Avoiding HEIDI inhibitor for fear of worsening renal insufficiency. 4. ELEVATED TROPONIN - felt to be related to demand ischemia. Undergoing cardiac catheterization may cause kidney failure and if at all possible, heart cath will be avoided. 5. EDEMA - multifactorial to include CHF, DVT, venous insufficiency. Much improved. 6. SLEEP APNEA - Dr. De Dios managing. 7. ACUTE ON CHRONIC RENAL INSUFFICIENCY - Stage III. Creatinine 2.2 today ( initially 1.9 on admission). Continue current plan of care. 8. MORBID OBESITY - dietary counseling ensues 9. SINUS TACHYCARDIA - increasing betablocker, changing IV Lasix to oral lasix Exam (Progress Note) - Constitutional Vitals: Period Temp Pulse Resp BP Sys/Alvarez Pulse Ox Last 24 Hr 87.7 F-98.0 F 67-105 16-20 128-160/67-93 89-98 Exam: General: [Appears well with no apparent distress.] [Pleasant and cooperative. ] [Appears comfortable.] HEENT: [PERRL, normocephalic, atraumatic. Mucous membranes moist. No jaundice noted. Conjunctiva moist and clear, sclerae anicteric] Neck: Unable to assess for JVD due to habitus. No thyromegaly or lymphadenopathy noted. No carotid bruit appreciated Cardiac: [Regular rate and rhythm.] [No obvious murmur rub or gallop.] Lungs: [Scant crackles in the bases. Using oxygen intermittently. Abdomen: Soft, bowel sounds normoactive. Nontender and nondistended. No abdominal bruit or thrill noted. No masses noted. Musculoskeletal: No fluid collection. Decreased range of motion is noted. Extremities: No clubbing, cyanosis noted. [1+ bilateral extremity edema.) Capillary refill less than 3 seconds. Skin: No unusual lesions or rashes. No skin breakdown appreciated. Neuro: Awake, alert and oriented 3. Moves all extremities well without hemiparesis or paralysis. No essential tremor is appreciated. Result/EKG - Labs CBC & BMP: 04/04/17 04:23 04/04/17 04:23 Lab Results: I have reviewed the past 24 hour labs Labs: Laboratory Results - last 24 hr 04/03/17 04/03/17 04/03/17 11:24 15:28 19:26 WBC RBC Hgb Hct MCV MCH MCHC RDW Plt Count MPV Neut % (Auto) Lymph % (Auto) [place] % (Auto) Eos % (Auto) Baso % (Auto) Neut # (Auto) Lymph # (Auto) [place] # (Auto) Eos # (Auto) Baso # (Auto) Immature Gran % Nucleated RBC % Immature Gran # Nucleated RBCs # Sodium Potassium Chloride Carbon Dioxide Anion Gap BUN Creatinine GFR Calculation BUN/Creatinine Ratio Glucose POC Glucose 171 H 171 H 214 H Calculated Osmolality Calcium Magnesium 04/04/17 04/04/17 04/04/17 04:23 04:23 07:14 WBC 10.5 RBC 4.37 Hgb 12.7 Hct 40.7 MCV 93.1 MCH 29 MCHC 31.2 L RDW 21.0 H Plt Count 239 MPV 11.3 Neut % (Auto) 75.7 H Lymph % (Auto) 12.7 L [place] % (Auto) 10.7 Eos % (Auto) 0.0 Baso % (Auto) 0.1 Neut # (Auto) 7.9 H Lymph # (Auto) 1.3 L [place] # (Auto) 1.1 H Eos # (Auto) 0.0 Baso # (Auto) 0.0 Immature Gran % 0.8 Nucleated RBC % 2.1 Immature Gran # 0.08 Nucleated RBCs # 0.22 Sodium 143 Potassium 4.3 Chloride 103 Carbon Dioxide 31 Anion Gap 13.3 BUN 76 H Creatinine 2.20 H GFR Calculation 33 BUN/Creatinine Ratio 34.00 H Glucose 114 H POC Glucose 139 H Calculated Osmolality 308.0 H Calcium 8.9 Magnesium 2.1 - EKG EKG results: interpreted by me EKG shows: tachycardia, sinus rhythm <MahiRachell - Last Filed: 04/04/17 15:06> Assessment and Plan - Time spent with patient Time spent with patient: Greater than 30 minutes (Discussion with the patient about risk benefits options left heart catheterization documentation discussed with Dr. Dangelo and exam) (1) Cor pulmonale (chronic) Status: Chronic Current Visit: Yes (2) Right heart failure due to pulmonary hypertension Status: Chronic Current Visit: Yes (3) Obesity (BMI 30-39.9) Status: Chronic Current Visit: Yes (4) Chronic renal insufficiency, stage III (moderate) Status: Chronic Current Visit: Yes (5) DVT (deep venous thrombosis) Status: Chronic Current Visit: No Qualifiers: DVT location: lower extremity Affected thrombotic vein of extremity: other lower extremity vein Chronicity: acute Laterality: right Qualified Code(s) : I82.491 - Acute embolism and thrombosis of other specified deep vein of right lower extremity (6) Type 2 diabetes mellitus Status: Chronic Current Visit: No Qualifiers: Diabetes mellitus complication status: with kidney complications Diabetes mellitus complication detail: with chronic kidney disease Chronic kidney disease stage: stage 3 (moderate) (7) Chest discomfort Status: Acute Current Visit: Yes Cardiology - PN: Subj Interval history: Ms. Cardoso complains of back pain. She states is severe however I woke her up when I went in the room. She was resting at that time. She is not making much progress and I discussed with her I think we need to go ahead and accept the risk of renal insufficiency in the setting perform left and right heart catheterization. She complains of heaviness in her chest and back pain. We will hold her anticoagulation and schedule for left and right heart catheterization in the morning. I discussed with Dr. Dangelo he is aware of renal insufficiency and the clinical situation including probable right heart failure. Exam (Progress Note) - Constitutional Vitals: Period Temp Pulse Resp BP Sys/Alvarez Pulse Ox Last 24 Hr 87.7 F-98.0 F 67-105 18-20 116-136/67-93 88-98 Exam: Patient has severe bilateral edema 2-3+ bilaterally slightly worse on right. Cardiovascular exam is unremarkable she has poor inspiratory effort. Result/EKG - Labs CBC & BMP: 04/04/17 04:23 04/04/17 04:23 Labs: Laboratory Results - last 24 hr 04/03/17 04/03/17 04/04/17 15:28 19:26 04:23 WBC 10.5 RBC 4.37 Hgb 12.7 Hct 40.7 MCV 93.1 MCH 29 MCHC 31.2 L RDW 21.0 H Plt Count 239 MPV 11.3 Neut % (Auto) 75.7 H Lymph % (Auto) 12.7 L [place] % (Auto) 10.7 Eos % (Auto) 0.0 Baso % (Auto) 0.1 Neut # (Auto) 7.9 H Lymph # (Auto) 1.3 L [place] # (Auto) 1.1 H Eos # (Auto) 0.0 Baso # (Auto) 0.0 Immature Gran % 0.8 Nucleated RBC % 2.1 Immature Gran # 0.08 Nucleated RBCs # 0.22 Sodium Potassium Chloride Carbon Dioxide Anion Gap BUN Creatinine GFR Calculation BUN/Creatinine Ratio Glucose POC Glucose 171 H 214 H Calculated Osmolality Calcium Magnesium 04/04/17 04/04/17 04/04/17 04:23 07:14 11:12 WBC RBC Hgb Hct MCV MCH MCHC RDW Plt Count MPV Neut % (Auto) Lymph % (Auto) [place] % (Auto) Eos % (Auto) Baso % (Auto) Neut # (Auto) Lymph # (Auto) [place] # (Auto) Eos # (Auto) Baso # (Auto) Immature Gran % Nucleated RBC % Immature Gran # Nucleated RBCs # Sodium 143 Potassium 4.3 Chloride 103 Carbon Dioxide 31 Anion Gap 13.3 BUN 76 H Creatinine 2.20 H GFR Calculation 33 BUN/Creatinine Ratio 34.00 H Glucose 114 H POC Glucose 139 H 145 H Calculated Osmolality 308.0 H Calcium 8.9 Magnesium 2.1
[2017-04-04] MEDS ORDERED: CARVEDILOL 3.125 MG TABLET PO ONE (10:30)
--- NOTE | 2017-04-04 11:25 | Hospitalist Progress Note ---
Assessment and Plan (1) Acute respiratory failure with hypoxia and hypercapnia Status: Acute Assessment and plan: increasing lasix, cont cpap at night Current Visit: No (2) Acute exacerbation of chronic obstructive pulmonary disease (COPD) Status: Acute Assessment and plan: cont duoneb, cont steroids, cxr Current Visit: No (3) Acute on chronic diastolic (congestive) heart failure Status: Acute Assessment and plan: increase lasix 80 mg IV every 12 hours, coreg bid, hydralazine, added zaroxlyn Current Visit: Yes (4) Type 2 diabetes mellitus Status: Chronic Assessment and plan: check hgb A1c 6.3 , increase lantus 15 units daily Current Visit: No Qualifiers: Diabetes mellitus complication status: with kidney complications Diabetes mellitus complication detail: with chronic kidney disease Chronic kidney disease stage: stage 3 (moderate) (5) Obstructive sleep apnea syndrome Status: Chronic Assessment and plan: cpap at night Current Visit: No (6) Obesity (BMI 30-39.9) Status: Chronic Current Visit: No (7) Right heart failure due to pulmonary hypertension Status: Chronic Assessment and plan: too high risk for heart cath as would put her into renal failure Current Visit: Yes Hospitalist: Subjective Interval history: Patient's still having a lot of problems with her breathing and her fluid retention is getting worse. I will ask Dr. Acevedo to see her today. She said her pain is worse and Cameron is not working. We will try Percocet. She is wheezing more today she is getting her DuoNeb's and still on steroids. Exam - Constitutional Vitals: Period Temp Pulse Resp BP Sys/Alvarez Pulse Ox Last 24 Hr 87.7 F-98.0 F 67-105 16-20 128-160/67-93 89-98 Exam: Heart Rate-[tachycardia] Lungs-[diminished and wheezing GI-[+bs soft, NT] Ext-[3+ pitting edema] Neuro [Motor 5/5], [alert and oriented times 3] psych [normal mood and affect] General [no acute distress] Results - Labs CBC & BMP: 04/04/17 04:23 04/04/17 04:23 Lab Results: I have reviewed the past 24 hour labs
[2017-04-04] MEDS ORDERED: INSULIN GLARGINE 100 UNIT/ML SUBCUT SCH (11:27)
[2017-04-04] MEDS: metOLazone 5 MG TABLET PO SCH (11:36)
--- NOTE | 2017-04-04 13:22 | XRay Report ---
XR chest 2V Indication: SOB Comparison: Chest x-ray dated April 01, 2017 Technique: Frontal and lateral views of the chest. Findings: Moderate cardiomegaly. There is nonspecific prominence of lung markings suspicious for interstitial pulmonary edema. Chronic/fibrotic change and interstitial pneumonia may have similar appearance. Visualized osseous and surrounding soft tissue structures appear grossly unchanged. IMPRESSION: No significant interval change. PROCEDURE INTERPRETED AT [facility] DEPARTMENT OF RADIOLOGY Final Report Signed by: Dr Diogo Villafuerte
[2017-04-04] MEDS: oxyCODONE/ACETAMINOPHEN 5-325 MG TABLET PO PRN (15:14)
--- NOTE | 2017-04-04 15:41 | Nephrology Consult Note ---
History of Present Illness Chief complaint: Acute on chronic renal failure History of present illness: Ms. Cardoso is a 61 year old female with history of diabetes congestive heart failure chronic kidney disease was admitted for heart failure symptoms. Serum creatinine is noted to be 2.2 nephrology is been consulted for acute on chronic renal failure. There is no history of dysuria. Patient states she feels fatigued at this time. No chest pain reported. There is plan for further workup to include a heart catheterization. At this time his serum creatinine remains to her risk for progressive renal dysfunction is mild to moderate. Plan to repeat BMP in a.m. Home Medications Medication Instructions Recorded Confirmed Type Pantoprazole Tab [Protonix Tab] 40 mg PO DAILY #30 tablet 07/13/16 03/31/17 Rx Furosemide Tab [Lasix Tab] 40 mg PO BID 03/07/17 03/31/17 History Insulin Lispro [HumaLOG] See Protocol SUBCUT ACHS PRN 03/07/17 03/31/17 History LORazepam [Lorazepam] 0.5 mg PO BID PRN 03/07/17 03/31/17 History Aspirin EC Tab 81 mg PO DAILY tablet 03/11/17 03/31/17 Rx Escitalopram [Lexapro] 20 mg PO DAILY tablet 03/11/17 03/31/17 Rx Isosorbide Mononitrate [Imdur] 15 mg PO DAILY #30 tablet 03/11/17 03/31/17 Rx Metoprolol Tartrate Tab [Lopressor 100 mg PO BID tablet 03/11/17 03/31/17 Rx Tab] hydrALAZINE TAB [Apresoline Tab] 50 mg PO TID #90 tablet 03/11/17 03/31/17 Rx predniSONE TAB [PredniSONE] 20 mg PO DAILY #22 tablet 03/11/17 03/31/17 Rx Ascorbic Acid [Vitamin C] 500 mg PO DAILY 03/31/17 03/31/17 History Hydrocodone/Acetaminophen 1 each PO BID PRN 03/31/17 03/31/17 History [Hydrocodon-Acetaminophn 10-325] Rivaroxaban [Xarelto] 10 mg PO DAILY 03/31/17 03/31/17 History Allergies Allergy/AdvReac Type Severity Reaction Status Date / Time No Known Allergies Allergy Verified 03/31/17 20:17 Medical,Surgical,& Family Hx - Medical History Cardio: History of: CHF (unclear diagnosis), CAD, Hypertension No history of: Cardiac Dysrhythmia, Valvular Heart Disease Psychological: History of: Depression Neurology: History of: TIA (2006) No history of: Cerebrovascular Accident HEENT: History of: Eye Problem (glasses) Endocrine: History of: Diabetes Mellitus (NIDDM), Dyslipidemia No history of: Thyroid Disorder Respiratory: History of: Bronchitis, COPD, Obstructive Sleep Apnea - Surgical History Cardiac Surgeries: Sugical HX of: Cardiac Catheterization (stent times 2) Abdominal Surgeries: Patient denies: Abdominal Surgery Reproductive Surgeries: Surgical HX of;: Tubal Ligation - Family History Family History: Reports;: Family Diabetes (mother), Family Heart Disease ( brother cardiomegaly), Family Hypertension (brother), Family Stroke (sister) Denies;: Family Anesthesia Reaction, Family Cancer, Family Hematology, Family Psychiatric Problems - Social History Smoking Status: Former smoker Frequency of Alcohol Use: None Type of Drug Use: None Review of Systems Constitutional: fatigue, no fever(s) Nose, mouth and throat: no epistaxis Cardiovascular: dyspnea Respiratory: dyspnea Genitourinary: no difficulty urinating, no dysuria Exam - Vital Signs Vital signs: Period Temp Pulse Resp BP Sys/Alvarez Pulse Ox Last 24 Hr 87.7 F-98.0 F 67-105 18-20 116-136/67-93 88-98 - General Appearance General appearance: well-developed, well-nourished, fatigue EENT: ATNC Neck: supple Respiratory: clear Cardiology: edema (2+), regular rate, regular rhythm Gastrointestinal: normoactive bowel sounds, no tenderness Neurologic: alert and oriented x3, CN 3-12 intact Musculoskeletal: no deformities, no clubbing Psychiatric: mood/affect appropriate, cooperative Results - Labs CBC & BMP: 04/04/17 04:23 04/04/17 04:23 Assessment and Plan (1) Type 2 diabetes mellitus Status: Chronic Current Visit: No Qualifiers: Diabetes mellitus complication status: with kidney complications Diabetes mellitus complication detail: with chronic kidney disease Chronic kidney disease stage: stage 3 (moderate) (2) Acute renal failure due to tubular necrosis Status: Acute Current Visit: No (3) Diabetes mellitus Status: Chronic Current Visit: Yes Qualifiers: Diabetes mellitus type: type 2 Diabetes mellitus complication detail: with chronic kidney disease Chronic kidney disease stage: stage 3 (moderate) (4) Congestive heart failure Status: Acute Current Visit: No Qualifiers: Congestive heart failure type: diastolic Congestive heart failure chronicity: acute on chronic Qualified Code(s): I50.33 - Acute on chronic diastolic (congestive) heart failure (5) CHF (congestive heart failure) Status: Acute Current Visit: No
[2017-04-04] MEDS: CARVEDILOL 6.25 MG TABLET PO SCH (20:36)
[2017-04-05] MEDS: ALBUTEROL/IPRATROPIUM 3 ML NEB RESP TX SCH ×4 (00:19→19:20)
[2017-04-05 04:45] LABS: Basophils % 0.1 % (0.0-0.8); Hematocrit 41.5 VOL% (35.7-47.0); Immature Granulocytes % 0.8 %; Immature Granulocytes Absolute 0.07 #; Lymphocytes # 1.4 10*3/uL (1.4-4.0); Lymphocytes % 14.7 % (21.3-54.2); Mean Corpuscular HGB Conc 31.3 GM/DL (32-36); Mean Corpuscular Hemoglobin 29 PG (27-34); Monocytes # 0.9 10*3/uL (0.11-0.8); Monocytes % 9.5 % (1.7-12.7); NRBC # 0.19 10*3/uL; Neutrophils % 74.9 % (38.7-73.9); Platelet Count 215 T/CUMM (130-400); Red Blood Count 4.46 MC/CUMM (3.8-5.5); White Blood Count 9.3 T/CUMM (4-12)
[2017-04-05 05:10] LABS: Calcium 9.4 MG/DL (8.5-10.1); Magnesium 2.1 MG/DL (1.8-2.4); Potassium 4.2 MMOL/L (3.5-5.1)
[2017-04-05] MEDS ORDERED: DIAZEPAM 5 MG TABLET PO ONE (06:00)
[2017-04-05] MEDS ORDERED: diphenhydrAMINE CAP 25 MG CAPSULE PO ONE (06:00)
[2017-04-05] MEDS: ASPIRIN EC 81 MG TABLET PO SCH ×2 (07:10→10:24)
[2017-04-05] MEDS: CARVEDILOL 6.25 MG TABLET PO SCH ×3 (07:10→21:34)
[2017-04-05] MEDS: ISOSORBIDE DINITRATE 20 MG TABLET PO SCH ×4 (07:11→21:34)
[2017-04-05] MEDS ORDERED: HEPARIN/NACL 0.9% 2 UNITS/ML 1,000 ML IV ONE (07:14)
[2017-04-05] MEDS ORDERED: LIDOCAINE 1% 20 ML VIAL ONE (07:14)
[2017-04-05] MEDS ORDERED: MIDAZOLAM 2 MG/2 ML VIAL ONE (07:51)
[2017-04-05] MEDS: BUDESONIDE 0.5 MG/2 ML NEB RESP TX SCH ×2 (08:10→19:20)
[2017-04-05] MEDS ORDERED: ADENOSINE 90 MG/30 ML VIAL IV ONE (08:18)
--- NOTE | 2017-04-05 09:20 | Cardiac Catheterization ---
Date of Procedure:: 04/05/17 Procedure: CLINICAL SUMMARY: The patient presents with severe right heart failure and recurrent severe dyspnea on exertion. She is undergoing right and left heart catheterization for evaluation of these symptoms. PROCEDURES PERFORMED: 1. Right femoral percutaneous arteriotomy 2. Left heart catheterization. 3. Resting hemodynamics. 4. Left ventriculography. 5. Coronary arteriography. 6. Right femoral arteriogram. 7. Angio-Seal closure of the right femoral artery.. 8. Right heart catheterization with adenosine challenge. DESCRIPTION OF PROCEDURE: After obtaining informed consent, the patient was brought to the cardiac catheterization lab where the right groin was prepped and draped in the usual sterile manner. We used minimal sedation for this procedure and placed a 7 [place] sheath in the right femoral vein and a 6 [place] sheath in the right femoral artery. We then performed right heart catheterization with a [place] catheter. Pressures were measured sequentially in the pulmonary artery, right ventricle, and left atrium. We also did oxygen saturation measurements which showed no step up. We did perform thermodilution cardiac output as well as [place] cardiac output. The patient had severe pulmonary hypertension with systolic pulmonary pressures of 100 mmHg or more. We did an adenosine challenge up to a dose of 161mcg/kg/min. After the right heart cath was completed we proceeded to left heart catheterization and coronary angiogram. A left coronary catheter was advanced over a guidewire under fluoroscopic control to the ascending aorta where angiograms of the left coronary artery were undertaken in multiple views. After adequate angiograms, this catheter was withdrawn and a right coronary catheter was advanced over a guidewire under fluoroscopic control to the ascending aorta with angiograms of the RCA were undertaken in numerous projections. After adequate angiograms, this catheter was removed and a pigtail ventriculographic catheter was advanced over a guidewire under fluoroscopic control to the aortic valve and left ventricular pressures were measured. After adequate pressures were measured, this catheter was used to perform left ventriculography in the KRAFT projection. This catheter was then withdrawn under hemodynamic monitoring and removed from the patient. A right femoral arteriogram was performed showing adequate sheath placement for closure device deployment. The sheath was then removed and an Angio-Seal device was used to obtain hemostasis. The patient was transferred back to the room having suffered no immediate complications. HEMODYNAMICS: See the accompanying data sheet. PA sat 38.6 RV set 37.7 RA sat 38.4 FA sat 83.5 hemoglobin 13 [place] cardiac output 2.85 L/min Thermodilution cardiac output 2.5 L/min T SVR 2684.21 dyne SVR 2251.75 dyne PA pressure 102/50/67 PA pressure at maximum adenosine infusion 100/51/ 68 PCW pressure 45/56/45 RV pressure 100/20/19 RA pressure 23/19/15 LV pressure 106/3/5 AO pressure 105/89/96 CORONARY ARTERIOGRAPHY: LEFT MAIN: The left main coronary artery is a large caliber vessel, which bifurcates into the left anterior descending and left circumflex coronary arteries. The left main coronary artery has no significant obstructive disease. LEFT CIRCUMFLEX: The left circumflex coronary artery is a large-caliber vessel which is of a trivial first obtuse marginal branch a large second obtuse marginal branch and a moderate-sized posterior lateral system. There are mild luminal irregularities in the circumflex system but no significant focal obstruction is seen. LEFT ANTERIOR DESCENDING: The left anterior descending artery is a large- caliber vessel which gives off a moderate-sized diagonal branch. The left anterior descending coronary and its tributaries have mild luminal irregularities but no definite obstructive disease. RIGHT CORONARY ARTERY: The right coronary artery is a moderate-sized vessel which gives off the posterior descending artery and a posterolateral system. The right coronary artery is angiographically free of significant obstructive disease. LEFT VENTRICULOGRAPHY: Left ventricular ejection fraction is 60-65% with normal regional wall motion. PERIPHERAL ARTERIOGRAPHY: Right femoral arteriogram shows a normal right iliofemoral artery with adequate sheath placement for closure device deployment. IMPRESSIONS: 1. Severe pulmonary hypertension with PA systolic pressures greater than 100 mmHg that was not responsive to adenosine challenge. 2. There is no significant coronary artery disease. 3. Left ventricular ejection fraction is normal. PLAN: The case was discussed with Dr. Gloria. The patient appears to have severe fixed pulmonary hypertension with pulmonary artery systolic pressures of 100+ mmHg. She does not have any significant coronary disease and has normal left ventricular function. She will be transferred back to telemetry for postoperative monitoring and management. Anesthesia: minimal conscious sedation Surgeon / Physician: Yves Dangelo Estimated blood loss: minimal Condition: stable Disposition: floor - Medications / Follow-up
[2017-04-05] MEDS: INSULIN LISPRO 100 UNIT/ML SUBCUT SCH ×4 (09:57→21:33)
[2017-04-05] MEDS: LORazepam 1 MG TABLET PO PRN (10:09)
[2017-04-05] MEDS: methylPREDNISolone SOD SUC 40 MG/1 ML VIAL IV SCH (10:11)
[2017-04-05] MEDS: PANTOPRAZOLE 40 MG TABLET PO SCH (10:12)
[2017-04-05] MEDS: ESCITALOPRAM 10 MG TABLET PO SCH (10:12)
[2017-04-05] MEDS: ASCORBIC ACID 500 MG TABLET PO SCH (10:12)
[2017-04-05] MEDS: FUROSEMIDE 40 MG/4 ML VIAL IV SCH (10:23)
[2017-04-05] MEDS: metOLazone 5 MG TABLET PO SCH (10:23)
[2017-04-05] MEDS: DOBUTamine 500 MG/250 ML PREMIX IV SCH (11:11)
--- NOTE | 2017-04-05 11:58 | Hospitalist Progress Note ---
Assessment and Plan (1) Right heart failure due to pulmonary hypertension Status: Chronic Assessment and plan: right and left heart cath showed severe pulmonary HTN, will move to CCU and started on dobutamine drip. Accepted to [facility] cardiology by Dr. Jer Joiner. Will stop lasix as need to keep preload high Current Visit: Yes (2) Acute respiratory failure with hypoxia and hypercapnia Status: Acute Assessment and plan: cont cpap at night Current Visit: No (3) Acute exacerbation of chronic obstructive pulmonary disease (COPD) Status: Acute Assessment and plan: cont duoneb, cont steroids Current Visit: No (4) Acute on chronic diastolic (congestive) heart failure Status: Acute Assessment and plan: stop diuretics Current Visit: Yes (5) Type 2 diabetes mellitus Status: Chronic Assessment and plan: check hgb A1c 6.3 , increase lantus 20 units daily Current Visit: No Qualifiers: Diabetes mellitus complication status: with kidney complications Diabetes mellitus complication detail: with chronic kidney disease Chronic kidney disease stage: stage 3 (moderate) (6) Obstructive sleep apnea syndrome Status: Chronic Assessment and plan: cpap at night Current Visit: No (7) Obesity (BMI 30-39.9) Status: Chronic Current Visit: No Hospitalist: Subjective Interval history: Dr. Champagne and I have spoke about her left and right heart cath. Patient has severe pulmonary hypertension. I have contacted [facility] and they have agreed to take her on to the cardiology service. Dr. Jer Joiner has agreed to take her once the ICU bed is opened up. She is asked me to transfer her down to the CCU here and started on a dobutamine drip. I have discussed this with Dr. Champagne. Exam - Constitutional Vitals: Period Temp Pulse Resp BP Sys/Alvarez Pulse Ox Last 24 Hr 97.4 F-98.5 F 86-109 16-20 107-155/74-102 88-99 Exam: Heart Rate-[tachy Lungs-[diminished and wheezing GI-[+bs soft, NT] Ext-[3+ pitting edema] Neuro [Motor 5/5], [alert and oriented times 3] psych [normal mood and affect] General [no acute distress] Results - Labs CBC & BMP: 04/05/17 04:23 04/05/17 04:23 Lab Results: I have reviewed the past 24 hour labs Labs: bnp [id number]
--- NOTE | 2017-04-05 12:17 | Nephrology Progress Note ---
Nephrology - PN: Subj Interval history: The patient status post cardiac catheterization that did not show significant coronary artery disease. No significant pulmonary hypertension is appreciated. Serum creatinine is noted to be 2.2. Renal function is stable. With this patient's underlying pulmonary hypertension lower extremity swelling is going to be difficult to control. Exam (PN)-Nephrology - Vital Signs Vital signs: Period Temp Pulse Resp BP Sys/Alvarez Pulse Ox Last 24 Hr 97.4 F-98.5 F 86-109 16-20 107-155/74-102 88-99 - General Appearance General appearance: well-developed, well-nourished Neck: supple Respiratory: clear Cardiology: edema (2+ edema), regular rate, regular rhythm Gastrointestinal: normoactive bowel sounds, no tenderness, no guarding Neurologic: alert and oriented x3, CN 3-12 intact Psychiatric: mood/affect appropriate - Lab 04/05/17 04:23 04/05/17 04:23 Most recent lab results ABG pH 7.398 (7.35-7.45) 04/01/17 06:00 ABG pCO2 52.7 MM HG (35-48) H 04/01/17 06:00 ABG pO2 78.9 MM HG (80-95) L 04/01/17 06:00 ABG HCO3 31.8 MMOL/L (20-26) H 04/01/17 06:00 ABG O2 Saturation 95.3 % (95-100) 04/01/17 06:00 Calcium 9.4 MG/DL (8.5-10.1) 04/05/17 04:23 Magnesium 2.1 MG/DL (1.8-2.4) 04/05/17 04:23 Assessment and Plan (1) Type 2 diabetes mellitus Status: Chronic Current Visit: No Qualifiers: Diabetes mellitus complication status: with kidney complications Diabetes mellitus complication detail: with chronic kidney disease Chronic kidney disease stage: stage 3 (moderate) (2) Acute renal failure due to tubular necrosis Status: Acute Current Visit: No (3) Diabetes mellitus Status: Chronic Current Visit: Yes Qualifiers: Diabetes mellitus type: type 2 Diabetes mellitus complication detail: with chronic kidney disease Chronic kidney disease stage: stage 3 (moderate) (4) Congestive heart failure Status: Chronic Current Visit: No Qualifiers: Congestive heart failure type: diastolic Congestive heart failure chronicity: acute on chronic Qualified Code(s): I50.33 - Acute on chronic diastolic (congestive) heart failure (5) CHF (congestive heart failure) Status: Acute Current Visit: No
[2017-04-05] MEDS: INSULIN GLARGINE 100 UNIT/ML SUBCUT SCH (13:25)
[2017-04-05] MEDS: oxyCODONE/ACETAMINOPHEN 5-325 MG TABLET PO PRN (13:26)
--- NOTE | 2017-04-05 15:16 | Discharge Summary ---
<Paloma Rueda - Last Filed: 04/05/17 15:32> Hospital Course - Hospital Course Hospital Course: Ms. Cardoso is a 61-year-old black female patient with a history of HTN, DM, VALERIE, CHF, COPD on home O2 at 4L, chronic renal insufficiency, VALERIE, cad that was transferred from [facility] for further evaluation of CHF. The patient also had bilateral pedal edema and was short of breath. Pt.'s sat's were in the 80s on room air in the ED. Pt. is known to our service as she had been admitted recently with similar complaints just as recently as February. CXR revealed cardiomegaly, pulmonary congestion with enlarged hilar structures, interstitial edema of the peripheral lungs, and opacities at both bases. Pt. was admitted to the hospitalist service for further eval. She was placed on BiPap and tolerated well. Pt. was treated with IV steroids and duonebs. Cardiology, nephrology and sleep medicine were consulted to see. Pt. was noted to have an elevated creatinine of 2.2 Instructions were to monitor BMP. Sleep medicine evaluated VALERIE. Instructions were given about importance with compliance as patient's compliance was noted to have decreased in recent months. Patient had an echocardiogram on March 07, 2017 which showed an EF of 60% and moderate concentric hypertrophy and a PAP of 58. Left and right heart cath on April 05 2017 PA pressure 102/50/67, wedge pressure is 45/56/45, RV pressure 100/20/19, right atrial pressure is 23/19/15, left atrial pressure is 106/3/5, aortic pressure is 105/89/96. Patient has severe pulmonary hypertension no significant coronary artery disease with a normal ejection fraction. His cardiac output is 2.85 L/min patient had no improvement with an adenosine infusion PA pressure 100/51/68. Patient's kidneys will be monitored closely by Dr. Acevedo especially after heart cath may increase dramatically. Patient had venous Doppler study on March 07, 2015 which showed a right saphenous clot which is not a deep vein. VQ scan was negative for PE. She was still recently placed on Xarelto. I will repeat her venous Dopplers now to see if she has any evidence of DVT and will get another stat VQ scan. Pt. BNP 2855. Stopped diuretics as they will decrease preload. Patient has been wearing her cpap at night. Pt. is being moved to the CCU and started on a dobutamine drip at 2.5. Pt. has been accepted pending a bed by Dr. Jer Joiner, Cardiology at [facility]. Discharge Plan - Discharge Data Disposition: Disch To Home/Self Care - Discharge Medications New Budesonide Neb [Pulmicort Respules] 0.5 mg RESP TX RT BID Dextrose 50% [D50] 25 gm IV PRN PRN vial PRN Reason: Hypoglycemia with IV access Glucagon 1 mg IM PRN PRN vial PRN Reason: Hypoglycemia w/o IV access Insulin Glargine [Lantus] 20 unit SUBCUT DAILY unit Isosorbide Dinitrate [Isordil] 20 mg PO TID tablet Morphine Inj 2 mg IV Q3H PRN syringe PRN Reason: Pain Severe (8-10) oxyCODONE/ACETAMINOPHEN 5-325 [Percocet 5-325] 2 tablet PO Q4H PRN tablet PRN Reason: Pain Moderate (4-7) Albuterol/Ipratropium Neb [Duoneb] 3 ml RESP TX RT Q6H Carvedilol [Coreg] 6.25 mg PO BID tablet methylPREDNISolone SOD SUC INJ [SoluMEDROL] 40 mg IV DAILY vial Continue Pantoprazole Tab [Protonix Tab] 40 mg PO DAILY #30 tablet LORazepam [Lorazepam] 0.5 mg PO BID PRN PRN Reason: Anxiety Insulin Lispro [HumaLOG] See Protocol SUBCUT ACHS PRN PRN Reason: Glucose Management Aspirin EC Tab 81 mg PO DAILY tablet Escitalopram [Lexapro] 20 mg PO DAILY tablet hydrALAZINE TAB [Apresoline Tab] 50 mg PO TID #90 tablet Ascorbic Acid [Vitamin C] 500 mg PO DAILY Hydrocodone/Acetaminophen [Hydrocodon-Acetaminophn 10-325] 1 each PO BID PRN PRN Reason: Pain Discontinued Furosemide Tab [Lasix Tab] 40 mg PO BID Isosorbide Mononitrate [Imdur] 15 mg PO DAILY #30 tablet Metoprolol Tartrate Tab [Lopressor Tab] 100 mg PO BID tablet predniSONE TAB [PredniSONE] 20 mg PO DAILY #22 tablet Rivaroxaban [Xarelto] 10 mg PO DAILY - Follow Up or Referral - Forms/Instructions Exam - Constitutional Vitals: Period Temp Pulse Resp BP Sys/Alvarez Pulse Ox Last 24 Hr 97.6 F-98.5 F 86-108 15-23 96-158/67-102 88-100 Discharge Results Procedures and tests throughout hospitalization: Pending Orders 04/05/17 07:43 CL heart Routine 04/05/17 10:48 MRSA Surveillence, Inf Control Routine 04/06/17 04:00 BMP w/ Mg [Basic Metabolic Panel w/Mg] IN AM CBC [Comp Blood Count Auto Diff] IN AM 04/07/17 04:00 BMP w/ Mg [Basic Metabolic Panel w/Mg] IN AM CBC [Comp Blood Count Auto Diff] IN AM 04/08/17 04:00 BMP w/ Mg [Basic Metabolic Panel w/Mg] IN AM CBC [Comp Blood Count Auto Diff] IN AM 04/09/17 04:00 BMP w/ Mg [Basic Metabolic Panel w/Mg] IN AM CBC [Comp Blood Count Auto Diff] IN AM Labs on day of discharge: Labs from last 24 hours 04/05/17 04/05/17 04/05/17 16:31 11:13 04:23 WBC RBC Hgb Hct MCV MCH MCHC RDW Plt Count MPV Neut % (Auto) Lymph % (Auto) [place] % (Auto) Eos % (Auto) Baso % (Auto) Neut # (Auto) Lymph # (Auto) [place] # (Auto) Eos # (Auto) Baso # (Auto) Immature Gran % Nucleated RBC % Immature Gran # Nucleated RBCs # Sodium Potassium Chloride Carbon Dioxide Anion Gap BUN Creatinine GFR Calculation BUN/Creatinine Ratio Glucose POC Glucose 144 H 257 H Calculated Osmolality Calcium Magnesium B-Natriuretic Peptide 2855 H 04/05/17 04/05/17 04/04/17 04:23 04:23 18:38 WBC 9.3 RBC 4.46 Hgb 13.0 Hct 41.5 MCV 93.0 MCH 29 MCHC 31.3 L RDW 21.0 H Plt Count 215 MPV 11.0 Neut % (Auto) 74.9 H Lymph % (Auto) 14.7 L [place] % (Auto) 9.5 Eos % (Auto) 0.0 Baso % (Auto) 0.1 Neut # (Auto) 7.0 Lymph # (Auto) 1.4 [place] # (Auto) 0.9 H Eos # (Auto) 0.0 Baso # (Auto) 0.0 Immature Gran % 0.8 Nucleated RBC % 2.0 Immature Gran # 0.07 Nucleated RBCs # 0.19 Sodium 143 Potassium 4.2 Chloride 102 Carbon Dioxide 33 H Anion Gap 12.2 BUN 79 H Creatinine 2.20 H GFR Calculation 33 BUN/Creatinine Ratio 35.00 H Glucose 132 H POC Glucose 223 H Calculated Osmolality 310.0 H Calcium 9.4 Magnesium 2.1 B-Natriuretic Peptide DS: Provider Date of admission: 03/31/17 22:10 Primary care physician: . No PCP Attending physician on admission: Chintan Evans MD Consults: 03/31/17 23:30 Consult to Case Mgmt/Social Srvs [CONS] Routine Reason for Case Mgmt/Social Srvs: Other Consult Comment: requests information on advanced directives and living [place] 04/01/17 08:36 Consult to Physician [CONS] Routine Comment: Consulting Provider: Jhonatan Parker Consult to Specialist Group: Cardiology When should Consulting Provider be notified: Now 04/02/17 14:22 Consult to Sleep Center [CONS] Routine Reason for Sleep Center: Technologist Assist Consult Comment: compliance, ?machine broken 04/03/17 10:12 Consult to Physical Therapy [CONS] Routine Reason for Physical Therapy: Evaluate and Treat 04/04/17 11:23 Consult to Physician [CONS] Routine Comment: worsening renal and chf Consulting Provider: Ashok Acevedo Jr. When should Consulting Provider be notified: Now Person Notified: CHRISTINE Date Notified: 04/04/17 Time Notified: 12:10 Discharging clinician: Paloma Rueda NP <Indira Astorga - Last Filed: 04/05/17 18:47> Hospital Course - Time spent with patient Time with patient DS: Greater than 30 minutes (40 min) Diagnosis - Discharge Diagnosis (1) Right heart failure due to pulmonary hypertension Status: Chronic (2) Acute respiratory failure with hypoxia and hypercapnia Status: Acute (3) Acute exacerbation of chronic obstructive pulmonary disease (COPD) Status: Acute (4) Acute on chronic diastolic (congestive) heart failure Status: Acute (5) Type 2 diabetes mellitus Status: Chronic (6) Obstructive sleep apnea syndrome Status: Chronic (7) Obesity (BMI 30-39.9) Status: Chronic Discharge Plan - Discharge Data Condition at Discharge: Stable Discharge Diet: diabetic diet Activity: resume usual activities as tolerated, wear oxygen at all times Hygiene: no restrictions Weight Bearing at Discharge: full weight bearing Exam - Constitutional General appearance: mild distress, morbidly obese - Respiratory Respiratory exam: Present: decreased breath sounds. Absent: rales, wheezes - Cardiovascular Cardiovascular exam: Present: regular rate and rhythm, systolic murmur - GI/Abdominal GI/Abdominal exam: Present: normal bowel sounds, soft. Absent: tenderness - Extremities Exam Extremities exam: Present: edema - Neurological Exam Neurological exam: Present: alert, oriented X3
[2017-04-05] MEDS: MORPHINE 2 MG/1 ML SYRINGE IV PRN ×2 (17:26→22:38)
[2017-04-05] MEDS: ENOXAPARIN 40 MG/0.4 ML SYRINGE SUBCUT SCH (18:53)
--- NOTE | 2017-04-05 19:56 | Ultrasound Report ---
US venous doppler LE BI Indication: Leg swelling. Shortness of breath. BILATERAL LOWER EXTREMITY VENOUS ULTRASOUND Comparison: 03/07/2017 Findings: Graded grayscale compression, color Doppler and pulsed Doppler ultrasound evaluation of the venous structures performed. Normal compressibility, augmentation and color saturation is present within bilateral common femoral, superficial femoral, popliteal and proximal greater saphenous veins. Impression: No evidence of DVT either lower extremity. PROCEDURE INTERPRETED AT [facility] DEPARTMENT OF RADIOLOGY Final Report Signed by: Roberto Wolf M.D.
--- NOTE | 2017-04-05 21:45 | Nuclear Medicine Report ---
NM lung scan vent and per Indication: History of DVT. Shortness of breath. VENTILATION/PERFUSION LUNG SCAN: Planar imaging of the lungs was obtained after the IV administration of 5 mCi technetium 99m labeled MAA, and aerosol administration of 40 mCi technetium 99m labeled DTPA. Comparison: 03/07/2017. Findings: Study limited anterior views. No discrete perfusion defect identified. Impression: No evidence of PE. PROCEDURE INTERPRETED AT [facility] DEPARTMENT OF RADIOLOGY Final Report Signed by: Roberto Wolf M.D.
[2017-04-06] MEDS: hydrALAZINE 20 MG/1 ML VIAL IV PRN ×4 (00:08→22:12)
[2017-04-06] MEDS: ALBUTEROL/IPRATROPIUM 3 ML NEB RESP TX SCH ×4 (00:28→19:05)
[2017-04-06] MEDS: BUDESONIDE 0.5 MG/2 ML NEB RESP TX SCH ×2 (07:00→19:05)
[2017-04-06] MEDS: MORPHINE 2 MG/1 ML SYRINGE IV PRN ×4 (07:43→21:05)
--- NOTE | 2017-04-06 08:07 | Cardiology Progress Note ---
Assessment and Plan (1) Cor pulmonale (chronic) Status: Chronic Assessment and plan: No apparent response to adenosine for severely elevated right-sided pressures and transpulmonary gradient exceeding 25 mmHg. Plan transfer to tertiary care facility for [facility] for further evaluation treatment of pulmonary hypertension. Given her history of DVT this very well may be CTEP but all other etiologies remain in the differential. Consider VQ scan. Current Visit: Yes (2) Right heart failure due to pulmonary hypertension Status: Chronic Current Visit: Yes (3) Obesity (BMI 30-39.9) Status: Chronic Current Visit: Yes (4) Chronic renal insufficiency, stage III (moderate) Status: Chronic Current Visit: Yes (5) DVT (deep venous thrombosis) Status: Chronic Current Visit: No Qualifiers: DVT location: lower extremity Affected thrombotic vein of extremity: other lower extremity vein Chronicity: acute Laterality: right Qualified Code(s) : I82.491 - Acute embolism and thrombosis of other specified deep vein of right lower extremity (6) Type 2 diabetes mellitus Status: Chronic Current Visit: No Qualifiers: Diabetes mellitus complication status: with kidney complications Diabetes mellitus complication detail: with chronic kidney disease Chronic kidney disease stage: stage 3 (moderate) (7) Chest discomfort Status: Acute Assessment and plan: From pulmonary hypertension Current Visit: Yes Cardiology - PN: Subj Interval history: I had a discussion with the patient concerning the findings at her left heart catheterization yesterday. I had a second discussion with her about pulmonary hypertension. Now that her pulmonary hypertension is been better defined with a large transpulmonary gradient normal right-sided pressures and no valvular abnormality is clearly defined now is primary pulmonary hypertension. I discussed with Dr. Astorga twice plans are to transfer the patient to call [facility] and the [facility] has accepted the patient in transfer but we are awaiting a bed. They recommend in the interim that she go to the ICU be on dobutamine infusion. She has been on dobutamine infusion she is been stable from a hemodynamic and rhythm standpoint. She states that she does not really feel any different. She has sinus tachycardia as would be expected in response to dobutamine. Her access site looks good her creatinine is good. I have nothing further to add at this time. She had an adenosine challenge by Dr. Dangelo in the [facility] yesterday as her only means of assessing vasodilation our institution and there was no apparent response to the adenosine infusion. The patient's right-sided pressures are essentially equal to her left sided pressures. Her end-diastolic pressure was 5 in the left ventricle and her pulmonary capillary wedge pressure was in the 30s. She has normal epicardial coronary arteries. Exam (Progress Note) - Constitutional Vitals: Period Temp Pulse Resp BP Sys/Alvarez Pulse Ox Last 24 Hr 97.2 F-98.1 F 88-106 15-25 96-174/67-111 94-100 General appearance: morbidly obese - Eye Eye exam: Present: EOMI Pupils: Present: CLAY - ENT ENT exam: Present: other (ASA 4 airway) - Respiratory Respiratory exam: Present: clear to auscultation bilaterally - Cardiovascular Cardiovascular exam: Present: regular rate and rhythm (RV lift) - GI/Abdominal GI/Abdominal exam: Present: normal bowel sounds - Extremities Exam Extremities exam: Present: edema (Without significant change) - Neurological Exam Neurological exam: Present: alert, oriented X3 - Psychiatric Psychiatric exam: Present: normal affect, depressed - Skin Skin exam: Present: normal color, warm, dry Result/EKG - Labs CBC & BMP: 04/05/17 04:23 04/05/17 04:23 Labs: Laboratory Results - last 24 hr 04/05/17 04/05/17 04/05/17 11:13 16:31 20:21 POC Glucose 257 H 144 H 219 H
--- NOTE | 2017-04-06 08:34 | Nephrology Progress Note ---
Nephrology - PN: Subj Interval history: Patient is resting no acute changes patient is status post cardiac cath that showed severe pulmonary hypertension. She is awaiting transfer to [facility] cardiology. Renal function has been stable at 2.2. Exam (PN)-Nephrology - Vital Signs Vital signs: Period Temp Pulse Resp BP Sys/Alvarez Pulse Ox Last 24 Hr 97.2 F-98.1 F 88-106 15-25 96-174/67-111 94-100 - General Appearance General appearance: well-developed, well-nourished EENT: ATNC Neck: supple Respiratory: clear Cardiology: regular rate, regular rhythm Gastrointestinal: normoactive bowel sounds, no tenderness Neurologic: alert and oriented x3 Musculoskeletal: no deformities - Lab 04/05/17 04:23 04/05/17 04:23 Most recent lab results ABG pH 7.398 (7.35-7.45) 04/01/17 06:00 ABG pCO2 52.7 MM HG (35-48) H 04/01/17 06:00 ABG pO2 78.9 MM HG (80-95) L 04/01/17 06:00 ABG HCO3 31.8 MMOL/L (20-26) H 04/01/17 06:00 ABG O2 Saturation 95.3 % (95-100) 04/01/17 06:00 Calcium 9.4 MG/DL (8.5-10.1) 04/05/17 04:23 Magnesium 2.1 MG/DL (1.8-2.4) 04/05/17 04:23 Assessment and Plan (1) Type 2 diabetes mellitus Status: Chronic Current Visit: No Qualifiers: Diabetes mellitus complication status: with kidney complications Diabetes mellitus complication detail: with chronic kidney disease Chronic kidney disease stage: stage 3 (moderate) (2) Acute renal failure due to tubular necrosis Status: Acute Current Visit: No (3) Diabetes mellitus Status: Chronic Current Visit: Yes Qualifiers: Diabetes mellitus type: type 2 Diabetes mellitus complication detail: with chronic kidney disease Chronic kidney disease stage: stage 3 (moderate) (4) Congestive heart failure Status: Chronic Current Visit: No Qualifiers: Congestive heart failure type: diastolic Congestive heart failure chronicity: acute on chronic Qualified Code(s): I50.33 - Acute on chronic diastolic (congestive) heart failure (5) CHF (congestive heart failure) Status: Acute Current Visit: No
[2017-04-06] MEDS: INSULIN LISPRO 100 UNIT/ML SUBCUT SCH ×4 (09:04→20:21)
[2017-04-06] MEDS: methylPREDNISolone SOD SUC 40 MG/1 ML VIAL IV SCH (10:06)
[2017-04-06] MEDS: ASCORBIC ACID 500 MG TABLET PO SCH (10:06)
[2017-04-06] MEDS: ASPIRIN EC 81 MG TABLET PO SCH (10:07)
[2017-04-06] MEDS: ESCITALOPRAM 10 MG TABLET PO SCH (10:07)
[2017-04-06] MEDS: PANTOPRAZOLE 40 MG TABLET PO SCH (10:07)
[2017-04-06] MEDS: ISOSORBIDE DINITRATE 20 MG TABLET PO SCH ×3 (10:07→20:19)
[2017-04-06] MEDS: INSULIN GLARGINE 100 UNIT/ML SUBCUT SCH (10:08)
[2017-04-06] MEDS: CARVEDILOL 6.25 MG TABLET PO SCH ×2 (10:08→20:19)
[2017-04-06] MEDS: DOBUTamine 500 MG/250 ML PREMIX IV SCH (11:08)
[2017-04-06] MEDS: DESITIN 4OZ/NYSTATIN 15 GRAM MIXTURE PASTE TOP SCH ×2 (11:14→20:20)
--- NOTE | 2017-04-06 11:56 | Hospitalist Progress Note ---
Assessment and Plan (1) Right heart failure due to pulmonary hypertension Status: Chronic Assessment and plan: right and left heart cath showed severe pulmonary HTN, cont dobutamine drip. Await bed at [facility] cardiology by Dr. Jer Joiner. Current Visit: Yes (2) Acute respiratory failure with hypoxia and hypercapnia Status: Acute Assessment and plan: cont cpap at night and prn during day for sob Current Visit: No (3) Acute exacerbation of chronic obstructive pulmonary disease (COPD) Status: Acute Assessment and plan: cont duoneb, cont steroids Current Visit: No (4) Acute on chronic diastolic (congestive) heart failure Status: Acute Assessment and plan: no diuretics for now Current Visit: Yes (5) Type 2 diabetes mellitus Status: Chronic Assessment and plan: check hgb A1c 6.3 ,cont lantus 20 units daily Current Visit: No Qualifiers: Diabetes mellitus complication status: with kidney complications Diabetes mellitus complication detail: with chronic kidney disease Chronic kidney disease stage: stage 3 (moderate) (6) Obstructive sleep apnea syndrome Status: Chronic Assessment and plan: cpap at night and during the day when she received pain meds Current Visit: No (7) Obesity (BMI 30-39.9) Status: Chronic Current Visit: No Hospitalist: Subjective Interval history: Patient more alert today. She says she feels a little bit better because she was given pain medicines and slept a little bit more. I told her I wanted her eating more today. We are still awaiting a bed at [facility] from cardiology for treatment of her pulmonary hypertension. She is still on a dobutamine drip and we added hydralazine to better control her pressure Exam - Constitutional Vitals: Period Temp Pulse Resp BP Sys/Alvarez Pulse Ox Last 24 Hr 96.6 F-98 F 88-107 15-25 99-174/67-111 87-100 Exam: Heart Rate-[tachy Lungs-[diminished GI-[+bs soft, NT] Ext-[3+ pitting edema] Neuro [Motor 5/5], [alert and oriented times 3] psych [normal mood and affect] General [no acute distress] Results - Labs CBC & BMP: 04/05/17 04:23 04/05/17 04:23 Lab Results: I have reviewed the past 24 hour labs - Diagnostic Findings Procedure: Ultrasound: report reviewed by me (no dvt ), X-ray: report reviewed by me (v/q negative for pe )
[2017-04-06 13:09] LABS: Calcium 9.3 MG/DL (8.5-10.1); Magnesium 2.1 MG/DL (1.8-2.4); Potassium 4.2 MMOL/L (3.5-5.1)
[2017-04-06] MEDS: LORazepam 1 MG TABLET PO PRN (18:04)
[2017-04-06] MEDS: ENOXAPARIN 40 MG/0.4 ML SYRINGE SUBCUT SCH (20:21)
--- NOTE | 2017-04-06 22:06 | Event Note ---
This evening a bed became available at [facility]. I discussed the case with Dr. Castro who is on-call for the accepting physician noted in Dr. Astorga's discharge summary. The patient has not had acute changes over the last 24 hours and has been accepted at [facility]. She will be transferred there accordingly.
[2017-04-07 00:24] VITALS: BP 170/102
[2017-04-07] MEDS: MORPHINE 2 MG/1 ML SYRINGE IV PRN (00:28)
[2017-04-07] MEDS: ALBUTEROL/IPRATROPIUM 3 ML NEB RESP TX SCH (00:28)
--- NOTE | 2017-04-07 07:31 | EKG Report ---
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
== END 2017-04-07 00:50 | disposition hospice, home (50) | DRG 286 ==
LOC: EDUNIT# → EDBD → N.ED 20:00 → SUATTDRO 22:10 → N.EDINP 22:10 → N.CC 22:35 → N.TELEN 04-02 13:01 → N.CC 04-05 10:39
PROVIDERS: ADMIT Internal Medicine Infectious Disease; ATTEND Internal Medicine